=== PATIENT | male | born 1955 | race Caucasian/White ===

== ENCOUNTER 2017-08-10 09:55 | Observation (INO) | payer BC, OTHER ==
[~2017-08-10] VITALS: Ht 182.9 cm; Wt 131.1 kg
[2017-08-10] MEDS ORDERED: VERAPAMIL 5 MG/2 ML (CALAN) VIAL IV ONE ×2 (10:04→10:42)
[2017-08-10] MEDS ORDERED: APIXABAN 5 MG (ELIQUIS) TABLET PO ONE (10:15)
[2017-08-10] MEDS ORDERED: ASPIRIN 81 MG CHEW (CHILDREN'S ASA) PO ONE (10:15)
[2017-08-10 10:19] LABS: BASOPHILS % (AUTO) 0 % (0-10); EOSINOPHILS # (AUTO) 0.1 10^3/uL (0.0-0.3); EOSINOPHILS % (AUTO) 1 % (0-10); HEMATOCRIT 40 % (40-54); HEMOGLOBIN 13.2 G/DL (13.3-17.7); LYMPHOCYTES # (AUTO) 1.6 X 10^3 (1.0-4.0); LYMPHOCYTES % (AUTO) 16 % (12-44); MEAN CORPUSCULAR HEMOGLOBIN 30 PG (25-34); MEAN CORPUSCULAR HGB CONC 33 G/DL (32-36); MEAN CORPUSCULAR VOLUME 92 FL (80-99); MEAN PLATELET VOLUME 10.2 FL (7.4-10.4); MONOCYTES # (AUTO) 0.9 X 10^3 (0.0-1.0); MONOCYTES % (AUTO) 9 % (0-12); NEUTROPHILS # (AUTO) 7.3 X 10^3 (1.8-7.8); NEUTROPHILS % (AUTO) 73 % (42-75); PLATELET COUNT 209 10^3/uL (130-400); RED BLOOD COUNT 4.35 10^6/uL (4.35-5.85)
--- NOTE | 2017-08-10 10:21 | ED Cardiac General ---
History of Present Illness General Stated Complaint: IRR HEART RATE Source: patient Exam Limitations: no limitations History of Present Illness Date Seen by Provider: Aug 10, 2017 Time Seen by Provider: 09:54 Initial Comments Here with report of irregular fast heart rate. Actually presented to the urgent care clinic and was found to have atrial fibrillation with rapid ventricular response and sent here for further evaluation. He is actually presented there because of 7-10 days of bronchitis. 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 Reports that he's had the bronchitis that was getting worse and he was 1 to get that taken care of and went to the doctor. Denies chest pain but is short of breath and has some wheezing. Denies fever or chills. Denies nausea or vomiting. Does have cough with the bronchitis. Not typically on inhalers but does have hypertension and is on lisinopril/hydrochlorothiazide combination. This is his only med. Timing/Duration: 1 week Severity: moderate Location: other (symptoms related to breathing.) Activities at Onset: none Prior CP/Workup: no prior chest pain, no prior cardiac workup NTG SL ENTRY LEVEL SALES ASSOCIATE: No ASA po ENTRY LEVEL SALES ASSOCIATE: No Associated Systoms: No Chest Pain, Cough, No Fever/Chills, No Nausea/Vomiting, Shortness of Air, No Weakness Allergies and Home Medications Allergies Coded Allergies: No Known Drug Allergies (Unverified , 08/10/17) Patient Home Medication List Home Medication List Reviewed: Yes Review of Systems Constitutional: see HPI EENTM: No Symptoms Reported Respiratory: Cough, Denies Orthopnea, Wheezing Cardiovascular: Denies Chest Pain, Denies Edema, Irregular Heart Rate Gastrointestinal: Denies Abdominal Pain, Denies Nausea, Denies Vomiting Genitourinary: No Symptoms Reported Musculoskeletal: no symptoms reported Skin: no symptoms reported All Other Systems Reviewed Negative Unless Noted: Yes Past Xzfntnj-Xzilcx-Wrldyu Hx Past Med/Social Hx: Reviewed Nursing Past Med/Soc Hx Patient Social History Alcohol Use: Denies Use Recreational Drug Use: No Smoking Status: Current Everyday Smoker Past Medical History Surgeries: Yes Orthopedic Respiratory: No Cardiac: Yes Hypertension Neurological: No Gastrointestinal: No Musculoskeletal: No Endocrine: No Cancer: No Family Medical History No Pertinent Family Hx Physical Exam Vital Signs Capillary Refill : General Appearance: No Apparent Distress, WD/WN HEENT: PERRL/EOMI, Pharynx Normal Neck: Non Tender, Supple Respiratory: No Respiratory Distress, Wheezing Cardiovascular: No Murmur, Irregularly Irregular, Tachycardia Gastrointestinal: Non Tender, Soft Extremity: Normal Range of Motion, Non Tender Neurologic/Psychiatric: Alert, Oriented x3 Skin: Normal Color, Warm/Dry Progress/Results/Core Measures Lab Results Laboratory Tests Test 08/10/17 10:10 Range/Units White Blood Count 10.0 4.3-11.0 10^3/uL Red Blood Count 4.35 4.35-5.85 10^6/uL Hemoglobin 13.2 L 13.3-17.7 G/DL Hematocrit 40 40-54 % Mean Corpuscular Volume 92 80-99 FL Mean Corpuscular Hemoglobin 30 25-34 PG Mean Corpuscular Hemoglobin Concent 33 32-36 G/DL Red Cell Distribution Width 14.0 10.0-14.5 % Platelet Count 209 130-400 10^3/uL Mean Platelet Volume 10.2 7.4-10.4 FL Neutrophils (%) (Auto) 73 42-75 % Lymphocytes (%) (Auto) 16 12-44 % Monocytes (%) (Auto) 9 0-12 % Eosinophils (%) (Auto) 1 0-10 % Basophils (%) (Auto) 0 0-10 % Neutrophils # (Auto) 7.3 1.8-7.8 X 10^3 Lymphocytes # (Auto) 1.6 1.0-4.0 X 10^3 Monocytes # (Auto) 0.9 0.0-1.0 X 10^3 Eosinophils # (Auto) 0.1 0.0-0.3 10^3/uL Basophils # (Auto) 0.0 0.0-0.1 10^3/uL Prothrombin Time 13.5 12.2-14.7 SEC INR Comment 1.0 0.8-1.4 Activated Partial Thromboplast Time 38 H 24-35 SEC Sodium Level 137 135-145 MMOL/L Potassium Level 4.5 3.6-5.0 MMOL/L Chloride Level 105 98-107 MMOL/L Carbon Dioxide Level 21 21-32 MMOL/L Anion Gap 11 5-14 MMOL/L Blood Urea Nitrogen 28 H 7-18 MG/DL Creatinine 1.53 H 0.60-1.30 MG/DL Estimat Glomerular Filtration Rate 46 BUN/Creatinine Ratio 18 Glucose Level 111 H 70-105 MG/DL Calcium Level 9.4 8.5-10.1 MG/DL Magnesium Level 1.9 1.8-2.4 MG/DL Total Bilirubin 1.0 0.1-1.0 MG/DL Aspartate Amino Transf (AST/SGOT) 22 5-34 U/L Alanine Aminotransferase (ALT/SGPT) 28 0-55 U/L Alkaline Phosphatase 82 40-136 U/L Myoglobin 170.0 H 10.0-92.0 NG/ML Troponin I < 0.30 <0.30 NG/ML Total Protein 7.6 6.4-8.2 GM/DL Albumin 4.3 3.2-4.5 GM/DL My Orders Orders - ARTEMIO HAYES MD Cbc With Automated Diff (08/10/17 10:07) Magnesium (08/10/17 10:07) Chest 1 View, Ap/Pa Only (08/10/17 10:07) Ekg Tracing (08/10/17 10:07) Cardiac Profile 1 (08/10/17 10:07) Comprehensive Metabolic Panel (08/10/17 10:07) Myoglobin Serum (08/10/17 10:07) Protime With Inr (08/10/17 10:07) Partial Thromboplastin Time (08/10/17 10:07) O2 (08/10/17 10:07) Monitor-Rhythm Ecg Trace Only (08/10/17 10:07) Lipid Panel (08/11/17 06:00) Aspirin Chewable Tablet (Baby Aspirin Ch (08/10/17 10:15) Saline Lock/Iv-Start (08/10/17 10:07) Verapamil Injection (Calan Injection) (08/10/17 10:04) Apixaban Tablet (Eliquis Tablet) (08/10/17 10:15) Diltiazem Tablet (Cardizem Tablet) (08/10/17 10:30) Verapamil Injection (Calan Injection) (08/10/17 10:45) Ceftriaxone Injection (Rocephin Injectio (08/10/17 11:00) Verapamil Injection (Calan Injection) (08/10/17 10:42) Prednisone Tablet (Deltasone Tablet) (08/10/17 11:00) Medications Given in ED Current Medications Medications Dose Ordered Sig/Sid Route Start Time Stop Time Status Last Admin Dose Admin Apixaban 5 mg ONCE ONCE PO 08/10/17 10:15 08/10/17 10:16 DC 08/10/17 10:15 5 MG Aspirin 324 mg ONCE ONCE PO 08/10/17 10:15 08/10/17 10:16 DC 08/10/17 10:15 324 MG Verapamil HCl 5 mg STK-MED ONCE IV 08/10/17 10:04 08/10/17 10:08 DC 08/10/17 10:17 5 MG Verapamil HCl 5 mg STK-MED ONCE IV 08/10/17 10:42 08/10/17 10:47 DC 08/10/17 10:50 5 MG Progress Note : Progress Note Seen and evaluated. IV, labs, chest x-ray and EKG ordered. ASA 324 mg by mouth ordered. I discussed the case with Dr. Fournier at 1007. Recommending Eliquis 5 mg po, Agrees with verapamil 5 mg IV. Will see patient in the ED. 1015: Dr Fournier evaluating. Cardizem 30 mg PO. monitor patient. 1042: Repeat verapamil 5 mg IV. I did discuss the case with Dr. BERUMEN and he accepts patient for admission, observation status. Due to the prolonged bronchitis we will initiate Rocephin 1 g IV and prednisone 40 mg by mouth. Patient has no indications of pneumonia nor does have indication of sepsis so blood cultures and lactic acid not drawn and the admitting physician agrees. Patient been admitted for atrial fibrillation with rapid ventricular response in the setting of bronchitis. Further medication orders aside from prednisone per admitting physician team. Patient and family agree with plan. Initial ECG Impression Date: Aug 10, 2017 Initial ECG Impression Time: 09:55 Initial ECG Rate: 165 Initial ECG Rhythm: A Fib/Flutter Comment Atrial fibrillation with rapid ventricular response. Normal axis. No evidence of ST elevation SC. No previous available for comparison. Interpreted by me. Diagonstic Imaging: Xray Plain Films/CT/US/NM/MRI: chest Comments NAME: YOUSUF DUNCAN MED REC#: [id number] PT STATUS: REG ER : 1955 PHYSICIAN: ARTEMIO HAYES MD ADMIT DATE: 08/10/17/ER Draft Date of Exam:08/10/17 CHEST 1 VIEW, AP/PA ONLY INDICATION: Atrial fibrillation. Time of exam: 10:33 AM No prior studies are available for comparison. The heart size is normal. The pulmonary vascularity is unremarkable. The lungs are clear. No infiltrate, effusion or pneumothorax is detected. Impression: No acute cardiopulmonary process is detected. Dictated on workstation # [id number] Dict: 08/10/17 1037 Trans: 08/10/17 1039 [id number] Interpreted by: WANDA RIGGS MD Electronically signed by: Departure Communication (Admissions) Time/Spoke to Admitting Phy: 10:42 Time/Spoke to Consulting Phy: 10:07 Impression Primary Impression: Atrial fibrillation with rapid ventricular response Additional Impressions: Bronchitis Chronic renal insufficiency Qualified Codes: N18.9 - Chronic kidney disease, unspecified Disposition: ADMITTED INPATIENT Condition: Stable Admissions Decision to Admit Reason: Admit from ER (General) Decision to Admit/Date: Aug 10, 2017 Time/Decision to Admit Time: 10:07 Departure-Patient Inst. Referrals: NO,LOCAL PHYSICIAN (PCP/Family) Primary Care Physician ARTEMIO HAYES MD Aug 10, 2017 10:21
[2017-08-10 10:26] LABS: PROTHROMBIN TIME PATIENT 13.5 SEC (12.2-14.7)
[2017-08-10] MEDS ORDERED: DILTIAZEM 30 MG (CARDIZEM) TAB PO SCH (10:30)
[2017-08-10 10:36] LABS: ALANINE AMINOTRANSFERASE 28 U/L (0-55); ALBUMIN 4.3 GM/DL (3.2-4.5); ALKALINE PHOSPHATASE 82 U/L (40-136); BUN/CREATININE RATIO 18; CALCIUM 9.4 MG/DL (8.5-10.1); CARBON DIOXIDE 21 MMOL/L (21-32); CHLORIDE 105 MMOL/L (98-107); CREATININE SERUM 1.53 MG/DL (0.60-1.30); GFR ESTIMATED 46; GLUCOSE 111 MG/DL (70-105); MAGNESIUM 1.9 MG/DL (1.8-2.4); POTASSIUM 4.5 MMOL/L (3.6-5.0); SODIUM 137 MMOL/L (135-145); TOTAL PROTEIN 7.6 GM/DL (6.4-8.2)
--- NOTE | 2017-08-10 10:39 | Diagnostic Imaging Report ---
INDICATION: Atrial fibrillation. Time of exam: 10:33 AM No prior studies are available for comparison. The heart size is normal. The pulmonary vascularity is unremarkable. The lungs are clear. No infiltrate, effusion or pneumothorax is detected. Impression: No acute cardiopulmonary process is detected. Dictated by: Dictated on workstation # [id number]
[2017-08-10] MEDS ORDERED: VERAPAMIL 10 MG/4 ML (CALAN) VIAL IV ONE (10:45)
--- NOTE | 2017-08-10 10:50 | Consultation-Cardiology ---
HPI-Cardiology Cardiology Consultation Date of Consultation 08/10/17 Date of Admission Time Seen by Provider: 10:40 Indication: Afib with RVR HPI Patient is a very pleasant 61 y/o male with history of HTN. Presented to the ER with c/o URI like symptoms for the past week. Patient noted to be in Afib with RVR with HR in the 150's. Denies any CP, dizziness, lightheadedness or syncope. No other complaints at this time. Admits to snoring at night, with observed apneas, has multiple risk factors for underlying sleep apnea. 61 years old gentleman with history of hypertension, has been having shortness of breath and cough with wheezing for the past one to 2 weeks, went to [facility] emergency room and noted to be in atrial flutter ablation with rapid ventricular response and came here. Has been complaint of fatigue and loss of energy, denied any chest pain, palpitation, syncope or near syncopal episodes. Was noted to have heart rate around 150 in the emergency room. Home Medications & Allergies Allergies: Coded Allergies: No Known Drug Allergies (Unverified , 08/10/17) Home Medication List Reviewed: Yes Medication list reviewed ENE-Rkruaq-Omzkgc Hx Patient Social History Marital Status: Employed/Student: employed Alcohol Use: Denies Use Recreational Drug Use: No Smoking Status: Current Everyday Smoker Past Medical History HTN, obesity, tobaccoism Family Medical History Significant Family History: No Pertinent Family Hx Constitutional: No chills, No diaphoresis, No fever, No malaise, No weakness EENTM: No blurred vision, No double vision, No vision loss, No epistaxis Respiratory: cough, dyspnea on exertion, short of breath, wheezing Cardiovascular: No chest pain, No edema, No palpitations, No syncope, No vascular heart diseas Gastrointestinal: No abdominal pain, No constipation Genitourinary: No frequency, No hematuria Musculoskeletal: No back pain Skin: No lesions, No rash Psychiatric/Neurological: Denies Anxiety Reviewed Test Results Reviewed Test Results Lab Laboratory Tests 08/10/17 10:10: White Blood Count 10.0, Red Blood Count 4.35, Hemoglobin 13.2L, Hematocrit 40, Mean Corpuscular Volume 92, Mean Corpuscular Hemoglobin 30, Mean Corpuscular Hemoglobin Concent 33, Red Cell Distribution Width 14.0, Platelet Count 209, Mean Platelet Volume 10.2, Neutrophils (%) (Auto) 73, Lymphocytes (%) (Auto) 16 , Monocytes (%) (Auto) 9, Eosinophils (%) (Auto) 1, Basophils (%) (Auto) 0, Neutrophils # (Auto) 7.3, Lymphocytes # (Auto) 1.6, Monocytes # (Auto) 0.9, Eosinophils # (Auto) 0.1, Basophils # (Auto) 0.0, Prothrombin Time 13.5, INR Comment 1.0, Activated Partial Thromboplast Time 38H, Sodium Level 137, Potassium Level 4.5, Chloride Level 105, Carbon Dioxide Level 21, Anion Gap 11, Blood Urea Nitrogen 28H, Creatinine 1.53H, Estimat Glomerular Filtration Rate 46 , BUN/Creatinine Ratio 18, Glucose Level 111H, Calcium Level 9.4, Magnesium Level 1.9, Total Bilirubin 1.0, Aspartate Amino Transf (AST/SGOT) 22, Alanine Aminotransferase (ALT/SGPT) 28, Alkaline Phosphatase 82, Myoglobin 170.0H, Troponin I < 0.30, Total Protein 7.6, Albumin 4.3 ECG Impression ECG Initial ECG Rhythm: A Fib/Flutter Initial ECG Impression: Atrial Fibrillation w/RVR Physical Exam Vital Signs Vital Signs - First Documented 08/10/17 09:55 Temp 98.4 Pulse 165 Resp 20 B/P (MAP) 138/90 (106) Pulse Ox 95 O2 Delivery Room Air Capillary Refill : General Appearance: No Apparent Distress, WD/WN HEENT: Normal ENT Inspection, Pharynx Normal Neck: Full Range of Motion, Non Tender, Supple Respiratory: Chest Non Tender, No Accessory Muscle Use, No Respiratory Distress , Rhonci, Wheezing Cardiovascular: No Edema, No Gallop, No JVD, No Murmur, Normal Peripheral Pulses, Irregularly Irregular, Tachycardia Gastrointestinal: No Pulsatile Mass, Non Tender, Soft Rectal: Deferred Back: No CVA Tenderness Extremity: Non Tender, No Calf Tenderness Neurologic/Psychiatric: Alert, Oriented x3, sound recordist II-XII Norm as Tested Skin: Normal Color, Warm/Dry Lymphatic: No Adenopathy A/P-Cardiology Admission Diagnosis Afib with RVR HTN Obesity Tobaccoism Assessment/Plan Afib with RVR- unknown duration. Currently in afib with HR in the 150's. IV Verapamil given. Will give PO Cardizem, followed by another 5mg IV Verapamil if needed. Continue to monitor telemetry. Cardiac enzymes pending. I will evaluate TSH, 2D Echo. URI/Bronchitis- management per primary care services HTN- continue to monitor blood pressure/HR Obesity Tobaccoism- educated on the importance of smoking cessation Multiple risk factors for underlying sleep apnea- snoring, observed apneas, cardiac arrhythmia, obesity. Recommend sleep study as outpatient. Thank you for allowing us to participate in the management of Mr. Pickens. This is Freda Beth PA-C, as a scribe for Dr. Fournier. This is Dr. Fournier, I have seen and evaluated the patient with Freda, discussed the management plan and agree with the current scribe, I made few modification to the note and used Italic Font. This is a 61 years old gentleman admitted with atrial fibrillation with rapid ventricular response, given multiple doses of verapamil IV, start him on oral Cardizem, I will evaluate 2-D echocardiogram, has high risk of underlying sleep apnea, consider sleep study, I will evaluate TSH. On examination lungs evaluation showed bilateral rhonchi and wheezing on the right side. Heart is irregular and tachycardic. No pedal edema. No abdominal pain, good bowel sounds Clinical Quality Measures AMI/AHF: ASA po Prior to arrival: No FREDA BOUCHER Aug 10, 2017 10:50 GRACIE FOURNIER MD Aug 10, 2017 11:38
[2017-08-10] MEDS ORDERED: cefTRIAXone INJECTION 1,000 MG in NS (IVPB) 100 ML IV ONE (11:00)
[2017-08-10] MEDS ORDERED: predniSONE 20 MG TAB PO ONE (11:00)
[2017-08-10 12:00] VITALS: BP 123/107
[2017-08-10] MEDS ORDERED: CATHETER FLUSH 10 ML SYR IV PRN (12:15)
[2017-08-10 12:28] VITALS: BP 112/83
[2017-08-10] MEDS: DILTIAZEM 60 MG (CARDIZEM) TAB PO SCH ×3 (12:39→23:37)
[2017-08-10] MEDS: NS IV 1000 ML 1,000 ML IV SCH (12:40)
[2017-08-10] MEDS ORDERED: RT-ALBUTEROL SULF 2.5 MG/3 ML PRE-MIX VIAL INH PRN (14:30)
[2017-08-10] MEDS ORDERED: LISI1TAB8 PO (14:39)
[2017-08-10] MEDS ORDERED: ASPI-983 PO (14:39)
[2017-08-10 16:40] VITALS: BP 140/90
[2017-08-10 20:00] VITALS: BP 157/95
[2017-08-10] MEDS: APIXABAN 5 MG (ELIQUIS) TABLET PO SCH (21:17)
[2017-08-11] VITALS: BP 178/107
[2017-08-11] MEDS: NS IV 1000 ML 1,000 ML IV SCH ×2 (03:13→15:52)
[2017-08-11 04:00] VITALS: BP 142/102
[2017-08-11 04:02] LABS: HEMOGLOBIN 12.3 G/DL (13.3-17.7); MEAN PLATELET VOLUME 10.3 FL (7.4-10.4); RED BLOOD COUNT 4.01 10^6/uL (4.35-5.85); WHITE BLOOD COUNT 11.5 10^3/uL (4.3-11.0)
[2017-08-11 04:19] LABS: ALANINE AMINOTRANSFERASE 23 U/L (0-55); ALKALINE PHOSPHATASE 68 U/L (40-136); BILIRUBIN,TOTAL 0.6 MG/DL (0.1-1.0); BUN/CREATININE RATIO 20; CALCIUM 8.9 MG/DL (8.5-10.1); CARBON DIOXIDE 21 MMOL/L (21-32); CHLORIDE 108 MMOL/L (98-107); CHOLESTEROL 205 MG/DL (< 200); CREATININE SERUM 1.47 MG/DL (0.60-1.30); GFR ESTIMATED 48; GLUCOSE 106 MG/DL (70-105); HDL CHOLESTEROL 37 MG/DL (40-60); POTASSIUM 4.8 MMOL/L (3.6-5.0); SODIUM 138 MMOL/L (135-145); TOTAL PROTEIN 7.1 GM/DL (6.4-8.2); TRIGLYCERIDES 85 MG/DL (<150); VLDL CHOLESTEROL 17 MG/DL (5-40)
[2017-08-11] MEDS: DILTIAZEM 60 MG (CARDIZEM) TAB PO SCH (06:33)
[2017-08-11] MEDS ORDERED: predniSONE 20 MG TAB PO SCH (07:00)
--- NOTE | 2017-08-11 07:10 | Cardiology Progress Note ---
Subjective Date Seen by Provider: Aug 11, 2017 Time Seen by Provider: 07:07 Subjective/Events-last exam Patient is sitting in bed, feeling better, still having some wheezing Review of Systems General: No Chills, No Night Sweats, No Fatigue, No Malaise, No Appetite, No Other HEENT: No Head Aches, No Visual Changes, No Eye Pain, No Ear Pain, No Dysphasia , No Sinus Congestion, No Post Nasal Drip, No Sore Throat, No Other Pulmonary: Dyspnea, No Cough, No Pleuritic Chest Pain, No Other Cardiovascular: Palpitations, No: Chest Pain, Orthopnea, Paroxysmal Noc. Dyspnea, Edema, Lt Headedness, Other Objective-Cardiology Exam Last Set of Vital Signs Vital Signs Capillary Refill : Less Than 3 Seconds Vital Signs Date Time Temp Pulse Resp B/P (MAP) Pulse Ox O2 Delivery O2 Flow Rate FiO2 08/11/17 04:00 97.3 97 20 142/102 (115) 94 Room Air I&O Intake and Output 08/11/17 00:00 Intake Total 1080 ml Output Total 650 ml Balance 430 ml Intake Oral 1080 ml Output Urine Total 650 ml Daily Weight Change No General: Alert, Oriented X3, Cooperative HEENT: Atraumatic, PERRLA Neck: Supple, No JVD, No Thyromegaly Lungs: Normal Air Movement, Other (wheezing) Heart: Normal S1, Normal S2, No Murmurs, Other (a fib) Abdomen: Normal Bowel Sounds, Soft, No Tenderness, No Hepatosplenomegaly, No Masses Extremities: No Clubbing, No Cyanosis, No Edema, Normal Pulses, No Tenderness/ Swelling Skin: No Rashes, No Breakdown, No Significant Lesion Neuro: Normal Gait, Normal Speech, Strength at 5/5 X4 Ext, Normal Tone, Sensation Intact Psych/Mental Status: Mental Status NL, Mood NL Results Lab Laboratory Tests 08/10/17 10:10 08/11/17 03:05 A/P-Cardiology Admission Diagnosis Afib with RVR HTN Obesity Tobaccoism Assessment/Plan Afib with RVR- unknown duration, heart rate is better controlled, I will change him to Cardizem CD, continue to monitor heart rate and blood pressure Echocardiogram showed normal left ventricular size and function, moderate to severe mitral regurgitation, mild aortic valve stenosis, mild aortic regurgitation. Enlarged left atrium. URI/Bronchitis, still having wheezing, started on prednisone in the emergency room, I will add math protocol- management per primary care services HTN- continue to monitor blood pressure/HR Obesity Tobaccoism- educated on the importance of smoking cessation Multiple risk factors for underlying sleep apnea- snoring, observed apneas, cardiac arrhythmia, obesity. Recommend sleep study as outpatient. Clinical Quality Measures AMI/AHF: ASA po Prior to arrival: No DVT/VTE Risk/Contraindication: Risk Factor Score Per Nursin RFS Level Per Nursing on Admit: 2=Moderate GRACIE ALFARO MD Aug 11, 2017 07:10
[2017-08-11 07:51] VITALS: BP 127/84
[2017-08-11] MEDS: APIXABAN 5 MG (ELIQUIS) TABLET PO SCH (08:59)
[2017-08-11] MEDS ORDERED: DILTIAZEM 240 MG (CARDIZEM CD) CAP PO SCH (09:00)
[2017-08-11 11:26] VITALS: BP 134/80
[2017-08-11] MEDS ORDERED: DILT240C63 PO (16:10)
[2017-08-11] MEDS ORDERED: APIX5TAB PO (16:10)
--- NOTE | 2017-08-11 16:13 | Discharge Instructions ---
Discharge Instructions Patient Instructions Patient Instructions: Stop smoking Medications as on the discharge list. There were 2 new medications that were transmitted to your pharmacy electronically. Keep appointment in follow-up with Dr. Fournier Return to The Hospital For: Decline in performance Activity & Diet Discharge Diet: No Restrictions Activity as Tolerated: Yes ELIDIA BERUMEN MD Aug 11, 2017 16:13
--- NOTE | 2017-08-11 16:20 | Short Stay Summary-Hospitalist ---
History of Present Illness HPI/Chief Complaint The patient's a 61-year-old who presented to the emergency room yesterday with complaints of cough and sputum production. This is a complaint that had begun one to 2 weeks prior to presentation. On his workup he was found to be in atrial fibrillation with a rate of 150. He denied chest pain. There was no previous knowledge of an irregular heartbeat. He was therefore admitted for attempt at rate control. He was seen by cardiology. Source: patient Exam Limitations: no limitations Date Seen 08/11/17 Time Seen by Provider: 16:13 Attending Physician Aron Berumen MD PCP No,Local Physician Referring Physician Date of Admission Aug 10, 2017 at 11:55 Home Medications & Allergies Home Medications Reviewed patient Home Medication Reconciliation performed by pharmacy medication reconciliations photographic equipment technician and/or nursing. Patients Allergies have been reviewed. Allergies Allergies Coded Allergies No Known Drug Allergies (Unverified08/10/17) Past Aaxlgen-Qlsbvf-Gfefqk Hx Past Med/Social Hx: Reviewed Nursing Past Med/Soc Hx Patient Social History Marrital Status: Employed/Student: employed Alcohol Use: Denies Use Recreational Drug Use: No Smoking Status: Current Everyday Smoker Cigaretts per day: 10 Type Used: Cigarettes 2nd Hand Smoke Exposure: Yes Physical Abuse Screen: No Sexual Abuse: No Recent Foreign Travel: No Contact w/other who traveled: No Recent Hopitalizations: No Recent Infectious Disease Expo: No Seasonal Allergies Seasonal Allergies: No Past Medical History Surgeries: Orthopedic Cardiac: Hypertension Gastrointestinal: Gastroesophageal Reflux, Ulcer History of Blood Disorders: No Adverse Reaction to Blood Ayala: No Family History Reviewed Nursing Family Hx No Pertinent Family Hx Review of Systems Constitutional: see HPI EENTM: no symptoms reported Respiratory: cough, dyspnea on exertion, phlegm Cardiovascular: no symptoms reported Genitourinary: no symptoms reported Musculoskeletal: no symptoms reported Skin: no symptoms reported Psychiatric/Neurological: No Symptoms Reported Physical Exam Physical Exam Vital Signs Vital Signs - First Documented 08/10/17 09:55 Temp 98.4 Pulse 165 Resp 20 B/P (MAP) 138/90 (106) Pulse Ox 95 O2 Delivery Room Air Capillary Refill : Less Than 3 Seconds General Appearance: No Apparent Distress, WD/WN Eyes: Bilateral Eye Normal Inspection HEENT: Normal ENT Inspection Neck: Normal Inspection Cardiovascular: Irregularly Irregular (Rate approximately 100) Gastrointestinal: Normal Bowel Sounds, No Organomegaly, No Pulsatile Mass, Non Tender, Soft Back: Normal Inspection, No CVA Tenderness Neurologic/Psychiatric: Alert, Oriented x3, No Motor/Sensory Deficits, Normal Mood/Affect Skin: Normal Color Lymphatic: No Adenopathy Results Results/Procedures Labs Laboratory Tests 08/10/17 10:10 08/11/17 03:05 Patient resulted labs reviewed. Short Stay Diagnosis Discharge Diagnosis-Short Stay Admission Diagnosis 1.bronchitis. 2.tobaccoism. 3.atrial fibrillation with rapid ventricular response. 4.hypertension Final Discharge Diagnosis 1.bronchitis 2.tobaccoism. 3.atrial fibrillation now with controlled ventricular response. 4.hypertension Conclusion Plan Discharge with follow-up with Dr. Fournier. He has been placed on Cardizem orally for attempts at rate control. He is been placed on Eliquis for embolic prevention. He will be evaluated by Dr. Fournier on return to the office for attempt at cardioversion. He was advised to stop and CEASE use of tobacco products Clinical Quality Measures AMI/AHF: ASA po Prior to arrival: No DVT/VTE Risk/Contraindication: Risk Factor Score Per Nursin RFS Level Per Nursing on Admit: 2=Moderate ARON BERUMEN MD Aug 11, 2017 16:20
[2017-08-11 16:32] VITALS: BP 138/85
== END 2017-08-11 16:11 | disposition home or self-care (01) ==
LOC: ER 10:00 → ICU 10:48 → UNDOADMOB 10:48 → ICU 11:55
PROVIDERS: ADMIT Internal Medicine; ATTEND Internal Medicine
DX: I48.91 Unspecified atrial fibrillation (principal); J40 Bronchitis, not specified as acute or chronic; F17.210 Nicotine dependence, cigarettes, uncomplicated; I10 Essential (primary) hypertension; Z79.01 Long term (current) use of anticoagulants; E66.9 Obesity, unspecified; Z68.39 Body mass index [BMI] 39.0-39.9, adult
CPT/HCPCS: 36415; 71045; 80053; 80061; 83735; 83874; 84443; 84484; 85025; 85027; 85610; 85730; 93005; 93041; 93306; 94640; 94760; 96365; 96375; 96376

== ENCOUNTER 2017-10-05 07:12 | Day surgery (SDC) | payer BC ==
[2017-10-05] VITALS (12 sets, daily range): BP systolic 117–159; BP diastolic 76–129
[~2017-10-05] VITALS: Ht 182.9 cm; Wt 131.4 kg
[~2017-10-05 07:12] MED LIST: APIX5TAB PO; ASPI-983 PO; DILT240C63 PO; LISI1TAB8 PO
[2017-10-05] MEDS ORDERED: NS IV 1000 ML 1,000 ML IV SCH (07:30)
[2017-10-05] MEDS ORDERED: NS IV 1000 ML 1,000 ML ONE (07:33)
[2017-10-05] MEDS ORDERED: LIDOCAINE 2% VISCOUS 15 ML UDC ONE (07:33)
[2017-10-05 07:59] LABS: BILIRUBIN,URINE NEGATIVE (NEGATIVE); CLARITY,URINE CLEAR; COLOR,URINE YELLOW; GLUCOSE, URINE (UA) NEGATIVE (NEGATIVE); KETONES,URINE NEGATIVE (NEGATIVE); LEUKOCYTE ESTERASE ,URINE 2+ (NEGATIVE); NITRITE,URINE NEGATIVE (NEGATIVE); PH,URINE 5 (5-9); PROTEIN,URINE NEGATIVE (NEGATIVE); UROBILINOGEN,URINE NORMAL (NORMAL)
[2017-10-05 08:00] LABS: HEMOGLOBIN 14.8 G/DL (13.3-17.7); MEAN PLATELET VOLUME 10.2 FL (7.4-10.4); RED BLOOD COUNT 4.82 10^6/uL (4.35-5.85); RED CELL DISTRIBUTION WIDTH 13.9 % (10.0-14.5); WHITE BLOOD COUNT 7.9 10^3/uL (4.3-11.0)
[2017-10-05] MEDS ORDERED: LOSA1TAB23 PO (08:00)
[2017-10-05] MEDS ORDERED: DABI150C5 PO (08:00)
[2017-10-05] MEDS ORDERED: DILT240C53 PO (08:00)
[2017-10-05 08:09] LABS: BACTERIA,URINE TRACE /HPF
[2017-10-05 08:10] LABS: INR 1.1 (0.8-1.4); PROTHROMBIN TIME PATIENT 14.3 SEC (12.2-14.7)
--- NOTE | 2017-10-05 08:11 | Diagnostic Imaging Report ---
INDICATION: Hypertension, A-fib. Comparison is made with prior examination from 08/10/17. FINDINGS: There is cardiomegaly. There is mild venous congestion. There is no pleural effusion or pneumothorax. The mediastinum is unremarkable. IMPRESSION: Cardiomegaly and some mild central pulmonary venous congestion. Dictated by: Dictated on workstation # [id number]
[2017-10-05] MEDS ORDERED: proPOfol 200 MG/20 ML (DIPRIVAN) VIAL IV ONE (08:18)
[2017-10-05] MEDS ORDERED: MIDAZOLAM 5 MG/5 ML (VERSED) VIAL ONE (08:18)
[2017-10-05 08:20] LABS: BILIRUBIN,TOTAL 0.5 MG/DL (0.1-1.0); CREATININE SERUM 1.61 MG/DL (0.60-1.30); POTASSIUM 4.4 MMOL/L (3.6-5.0); TOTAL PROTEIN 7.3 GM/DL (6.4-8.2)
--- NOTE | 2017-10-05 08:31 | Cardiac Procedure Note-CS/ASA ---
Pre-Procedure Note Pre-Op Procedure Note H&P Reviewed The H&P was reviewed, patient examined and no changes noted. Date H&P Reviewed: Oct 05, 2017 Time H&P Reviewed: 08:31 Conscious Sedation Pre-Proced Time Reviewed: :31 ASA Class: 3 Airway Mallampati Classification: (jena appropriate class) I. II. III, IV Lungs Heart ASA score ASA 1: a normal healthy patient ASA 2: a patient with a mild systemic disease (mid diabetes, controlled hypertension, obesity X ASA 3: a patient with a severe systemic disease that limits activity (angina , COPD, prior Myocardial infarction) ASA 4: a patient with an incapacitating disease that is a constant threat to life (CHF, renal failure) ASA 5: a moribund patient not expected to survive 24 hrs. (ruptured aneurysm) ASA 6: a declared brain patient whose organs are being harvested. For emergent operations, add the letter E after the classification Grade 3 Sedation Plan: Analgesia, Amnesia, Plan communicated to team members, Discussed options with patient/fam, Discussed risks with patient/fam Note The patient is an appropriate candidate to undergo the planned procedure, sedation, and anesthesia. The patient immediately re-assessed prior to indication. GRACIE ALFARO MD Oct 05, 2017 08:31
--- NOTE | 2017-10-05 08:53 | Cardioversion ---
Cardioversion PROCEDURE PHYSICIAN: Gracie Fournier DATE OF PROCEDURE: 10/05/17 DIRECT EXTERNAL ELECTRICAL CARDIOVERSION: Indications: Atrial Fibrillation Preoperative diagnoses: Atrial Fibrillation Postoperative diagnosis: Sinus rhythm, Successful Electrical Cardioversion Anesthesia: By Anesthesia services Complications: None Procedure Details: The patient was brought the ship laborer after informed consent was taken, all the risks and complications were explained including the risk of stroke. Electrical cardioversion was carried out with anesthesia support with propofol. 200 joules of synchronized shock was delivered through external patches which promptly restored sinus rhythm. The patient tolerated the procedure well. Conclusions: Successful electrical cardioversion Final Diagnosis: Paroxysmal atrial fibrillation Hypertension Hyperlipidemia GRACIE FOURNIER MD Oct 05, 2017 8:53 am
--- NOTE | 2017-10-05 08:54 | Anesthesia-General Post-Op ---
MAC Patient Condition Mental Status/LOC: Same as Preop Cardiovascular: Satisfactory Nausea/Vomiting: Absent Respiratory: Satisfactory Pain: Controlled Complications: Absent Post Op Complications Complications None Follow Up Care/Instructions Patient Instructions None needed. Anesthesiology Discharge Order Discharge Order Patient is doing well, no complaints, stable vital signs, no apparent adverse anesthesia problems. No complications reported per nursing. HIEN SINGH CRNA Oct 05, 2017 08:54
--- NOTE | 2017-10-05 08:57 | Anesthesia-Procedure Note ---
Procedures/Interventions Procedure Start/Stop/Diagnosis Date of Procedure: Oct 05, 2017 Start Time: 08:38 Referring Physician: Irlanda Preprocedural Diagnosis: AFIB/HTN Stop Time: 08:48 RICHA/Cardioversion Anesthesia Type: mac ASA Class: 3 Medications Propofol titrated to effect, 130mg IV total. Versed 2MG IV. Monitors and Equipment: BP Cuff - Left, Continuous EKG, End Tidal CO2, IV, Pulse Oximeter Additional Procedures Procedures Called to photonic laboratory technician to assist with sedation for RICHA/Cardioversion. Brief report received from photonic laboratory technician RN, allergies verified. Explained to patient, he wishes to proceed. VS stable throughout. See cardiology and nurses notes for additional info. HIEN SINGH CRNA Oct 05, 2017 08:57
[2017-10-05] MEDS ORDERED: LIDOCAINE 2% VISCOUS 15 ML UDC PO ONE (09:00)
[2017-10-05] MEDS ORDERED: FLECAINIDE 100 MG (TAMBOCOR) TAB PO SCH (09:15)
[2017-10-05] MEDS ORDERED: FLEC100T PO (09:22)
== END 2017-10-05 10:01 | disposition home or self-care (01) ==
LOC: CATH 07:12
PROVIDERS: ATTEND Internal Medicine Cardiovascular Disease
DX: I48.0 Paroxysmal atrial fibrillation (principal); I10 Essential (primary) hypertension; E78.5 Hyperlipidemia, unspecified; G47.10 Hypersomnia, unspecified; I08.0 Rheumatic disorders of both mitral and aortic valves; Z87.891 Personal history of nicotine dependence; E66.9 Obesity, unspecified; Z68.39 Body mass index [BMI] 39.0-39.9, adult
CPT/HCPCS: 36415; 71045; 80053; 80061; 81000; 85027; 85610; 85730; 87081; 87088; 92960; 93005; 93320; 93325

== ENCOUNTER 2018-12-26 10:26 | Emergency (ER) | payer MEDICARE, OTHER ==
[~2018-12-26] VITALS: Ht 182.9 cm; Wt 127.0 kg
[~2018-12-26 10:26] MED LIST changes: +DABI150C5 PO; +DILT240C53 PO; -DILT240C63 PO; +DILT240C97 PO; +FLEC100T PO; +LOSA1TAB23 PO
[2018-12-26 11:03] LABS: BASOPHILS % (AUTO) 0 % (0-10); EOSINOPHILS # (AUTO) 0.1 10^3/uL (0.0-0.3); EOSINOPHILS % (AUTO) 1 % (0-10); HEMATOCRIT 45 % (40-54); HEMOGLOBIN 15.1 G/DL (13.3-17.7); LYMPHOCYTES # (AUTO) 1.2 X 10^3 (1.0-4.0); LYMPHOCYTES % (AUTO) 16 % (12-44); MEAN CORPUSCULAR HEMOGLOBIN 30 PG (25-34); MEAN CORPUSCULAR HGB CONC 34 G/DL (32-36); MEAN CORPUSCULAR VOLUME 89 FL (80-99); MONOCYTES # (AUTO) 0.8 X 10^3 (0.0-1.0); MONOCYTES % (AUTO) 12 % (0-12); NEUTROPHILS # (AUTO) 5.2 X 10^3 (1.8-7.8); NEUTROPHILS % (AUTO) 71 % (42-75); PLATELET COUNT 159 10^3/uL (130-400); RED CELL DISTRIBUTION WIDTH 14.1 % (10.0-14.5); WHITE BLOOD COUNT 7.3 10^3/uL (4.3-11.0)
--- NOTE | 2018-12-26 11:10 | Diagnostic Imaging Report ---
PATIENT HISTORY: Hypotension. TECHNIQUE: Single frontal view of the chest. COMPARISON: 10/05/2017 FINDINGS: Lung volumes are large. Mild airspace opacity seen at the left lung base. No pleural effusion or pneumothorax is seen. The cardiac silhouette is stable in size. IMPRESSION: 1. Large lung volumes with left basilar airspace opacities, may represent atelectasis or infiltrate. Dictated by: Dictated on workstation # [id number]
--- NOTE | 2018-12-26 11:15 | NUR ---
PT LAYING IN BED RESTING. PT STATES THAT HE FEELS FINE AND NEEDS NOTHING AT THIS TIME.
[2018-12-26 11:22] LABS: ALANINE AMINOTRANSFERASE 13 U/L (0-55); ALKALINE PHOSPHATASE 84 U/L (40-136); BILIRUBIN,TOTAL 0.5 MG/DL (0.1-1.0); BUN/CREATININE RATIO 15; CALCIUM 9.1 MG/DL (8.5-10.1); CARBON DIOXIDE 23 MMOL/L (21-32); CHLORIDE 104 MMOL/L (98-107); CREATINE KINASE 99 U/L (30-200); CREATININE SERUM 2.14 MG/DL (0.60-1.30); GFR ESTIMATED 31; GLUCOSE 114 MG/DL (70-105); MAGNESIUM 1.4 MG/DL (1.6-2.4); POTASSIUM 4.3 MMOL/L (3.6-5.0); SODIUM 141 MMOL/L (135-145); TOTAL PROTEIN 7.3 GM/DL (6.4-8.2)
[2018-12-26] MEDS ORDERED: NS IV 1000 ML 1,000 ML IV ONE ×2 (11:26→13:04)
[2018-12-26] MEDS ORDERED: MAGNESIUM 1 GM/100 ML IVPB 100 ML IV ONE (11:30)
[2018-12-26 11:42] LABS: CREATINE KINASE MB 2.7 NG/ML (<6.6); TSH (THYROID ANALYZER) 3.16 UIU/ML (0.35-4.94)
[2018-12-26 11:44] LABS: BILIRUBIN,URINE 1+ (NEGATIVE); CLARITY,URINE SLIGHTLY CLOUDY; COLOR,URINE YELLOW; GLUCOSE, URINE (UA) NEGATIVE (NEGATIVE); KETONES,URINE 1+ (NEGATIVE); LEUKOCYTE ESTERASE ,URINE 2+ (NEGATIVE); NITRITE,URINE NEGATIVE (NEGATIVE); PH,URINE 5 (5-9); PROTEIN,URINE 2+ (NEGATIVE); UROBILINOGEN,URINE 1 MG/DL (NORMAL)
--- NOTE | 2018-12-26 12:05 | ED Cardiac General ---
History of Present Illness General Chief Complaint: Cardiac/General Problems Stated Complaint: LOW BP 88/64 Nursing Triage Note: PT AMBULATE TO ROOM 06 WITHOUT DIFFICULTY WITH C/O HYPOTENSION STARTING THIS MORNING. PT STATES THAT AFTER BREAKFAST HE DIDN'T FEEL WELL WITH HEADACHE, DIZZYNESS. PT REPORTS HX OF AFIB. Source: patient History of Present Illness Date Seen by Provider: Dec 26, 2018 Time Seen by Provider: 10:35 Initial Comments PT ARRIVES VIA POV FROM HOME C/O LOW BLOOD PRESSURE SINCE AROUND 0800 THIS AM C/O SOME DIZZINESS C/O DULL HEADACHE AND PAIN TO LEFT TMJ AREA NO CHEST PAIN NO SHORTNESS OF BREATH NO SYNCOPE NO SWELLING IN LEGS/FEET OR PAIN IN CALVES NO SWEATS PT HAS CHRONIC ATRIAL FIBRILLATION AND IS ON ELIQUIS AND FLECANIDE--STATES HE IS ALWAYS OUT OF RHYTHM HAD FAILED CARDIOVERSION 11/2017 PT ALSO HAS HISTORY OF HTN AND HYPERLIPIDEMIA TOOK ALL AM MEDICATIONS AROUND 0700 THIS AM. 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 ALFARO Allergies and Home Medications Allergies Coded Allergies: No Known Drug Allergies (Unverified , 08/10/17) Home Medications Diltiazem HCl 240 Mg Cap.er.24h, 240 MG PO DAILY Prescribed by: ELIDIA BERUMEN on 08/11/17 1610 Diltiazem HCl 240 Mg Cap.er.24h, 240 MG PO DAILY, (Reported) Flecainide Acetate 100 Mg Tablet, 100 MG PO BID Prescribed by: GRACIE ALFARO on 10/05/17 0922 Losartan/Hydrochlorothiazide 1 Each Tablet, 1 EACH PO DAILY, (Reported) Nitrofurantoin Monohyd/M-Cryst 100 Mg Capsule, 100 MG PO BID Prescribed by: GIANNA TURCIOS on 12/26/18 1411 Patient Home Medication List Home Medication List Reviewed: Yes Review of Systems Review of Systems Constitutional: see HPI; No chills, No diaphoresis; dizziness; No fever; malaise EENTM: See HPI Respiratory: No Symptoms Reported; Denies Cough, Denies Orthopnea, Denies Shortness of Air, Denies Wheezing Cardiovascular: See HPI; Denies Chest Pain, Denies Edema; Irregular Heart Rate, Lightheadedness; Denies Syncope Gastrointestinal: No Symptoms Reported; Denies Abdominal Pain, Denies Nausea, Denies Vomiting Genitourinary: Frequency (CHRONIC ) Musculoskeletal: no symptoms reported Skin: no symptoms reported Psychiatric/Neurological: See HPI, Headache; Denies Numbness, Denies Paresthesia, Denies Seizure, Denies Tingling, Denies Weakness Endocrine: No Symptoms Reported Hematologic/Lymphatic: No Symptoms Reported Past Skntfxb-Lbumfq-Ypcrcf Hx Patient Social History Alcohol Use: Rarely Uses Recreational Drug Use: No Smoking Status: Former Smoker Type Used: Cigarettes Former Smoker, Quit: Oct 05, 2016 2nd Hand Smoke Exposure: Yes Recent Foreign Travel: No Contact w/Someone Who Travel: No Recent Infectious Disease Expo: No Recent Hopitalizations: No Physical Abuse: No Sexual Abuse: No Mistreated: No Fear: No Seasonal Allergies Seasonal Allergies: No Past Medical History Surgeries: Yes (CARDIOVERSION 11/2017) Orthopedic Respiratory: No Cardiac: Yes (AORTIC STENOSIS/MITRAL AN D TRICUSPID REGURGITATION) Atrial Fibrillation, Heart Murmur, High Cholesterol, Hypertension, Valvular Heart Disease Neurological: No Genitourinary: No Gastrointestinal: Yes Gastroesophageal Reflux, Ulcer Musculoskeletal: No Endocrine: No HEENT: No Loss of Vision: Denies Hearing Impairment: Denies Cancer: No Psychosocial: No Integumentary: No Blood Disorders: No Adverse Reaction/Blood Tranf: No Family Medical History No Pertinent Family Hx Physical Exam Vital Signs Vital Signs - First Documented 12/26/18 10:34 Temp 98.4 Pulse 99 Resp 15 B/P (MAP) 120/100 (107) Pulse Ox 94 O2 Delivery Room Air Capillary Refill : Less Than 3 Seconds Height, Weight, BMI Height: 6'0" Weight: 280lbs. 11.2oz. 127.198775kd; 39.3 BMI Method:Stated General Appearance: No Apparent Distress, WD/WN Neck: Full Range of Motion, Normal Inspection, Non Tender, Supple; No Carotid Bruit, No JVD Respiratory: Chest Non Tender, Normal Breath Sounds, No Accessory Muscle Use, No Respiratory Distress Cardiovascular: No Edema, No JVD, Normal Peripheral Pulses, Systolic Murmur (? FAINT ? ), Irregularly Irregular Gastrointestinal: Non Tender, Soft Extremity: Normal Capillary Refill, Normal Inspection, Normal Range of Motion, Non Tender, No Calf Tenderness, No Pedal Edema Neurologic/Psychiatric: Alert, Oriented x3, No Motor/Sensory Deficits, Normal Mood/Affect, food and beverage assistant II-XII Norm as Tested Skin: Normal Color, Warm/Dry Progress/Results/Core Measures Results/Orders Lab Results Laboratory Tests Test 12/26/18 10:55 12/26/18 11:26 12/26/18 13:17 Range/Units White Blood Count 7.3 4.3-11.0 10^3/uL Red Blood Count 5.06 4.35-5.85 10^6/uL Hemoglobin 15.1 13.3-17.7 G/DL Hematocrit 45 40-54 % Mean Corpuscular Volume 89 80-99 FL Mean Corpuscular Hemoglobin 30 25-34 PG Mean Corpuscular Hemoglobin Concent 34 32-36 G/DL Red Cell Distribution Width 14.1 10.0-14.5 % Platelet Count 159 130-400 10^3/uL Mean Platelet Volume 10.0 7.4-10.4 FL Neutrophils (%) (Auto) 71 42-75 % Lymphocytes (%) (Auto) 16 12-44 % Monocytes (%) (Auto) 12 0-12 % Eosinophils (%) (Auto) 1 0-10 % Basophils (%) (Auto) 0 0-10 % Neutrophils # (Auto) 5.2 1.8-7.8 X 10^3 Lymphocytes # (Auto) 1.2 1.0-4.0 X 10^3 Monocytes # (Auto) 0.8 0.0-1.0 X 10^3 Eosinophils # (Auto) 0.1 0.0-0.3 10^3/uL Basophils # (Auto) 0.0 0.0-0.1 10^3/uL Prothrombin Time 14.1 12.2-14.7 SEC INR Comment 1.1 0.8-1.4 Activated Partial Thromboplast Time 39 H 24-35 SEC Sodium Level 141 140 135-145 MMOL/L Potassium Level 4.3 4.6 3.6-5.0 MMOL/L Chloride Level 104 106 98-107 MMOL/L Carbon Dioxide Level 23 21 21-32 MMOL/L Anion Gap 14 13 5-14 MMOL/L Blood Urea Nitrogen 32 H 33 H 7-18 MG/DL Creatinine 2.14 H 2.05 H 0.60-1.30 MG/DL Estimat Glomerular Filtration Rate 31 33 BUN/Creatinine Ratio 15 16 Glucose Level 114 H 112 H 70-105 MG/DL Calcium Level 9.1 9.0 8.5-10.1 MG/DL Corrected Calcium 9.1 8.5-10.1 MG/DL Magnesium Level 1.4 L 1.6-2.4 MG/DL Total Bilirubin 0.5 0.1-1.0 MG/DL Aspartate Amino Transf (AST/SGOT) 14 5-34 U/L Alanine Aminotransferase (ALT/SGPT) 13 0-55 U/L Alkaline Phosphatase 84 40-136 U/L Total Creatine Kinase 99 30-200 U/L Creatine Kinase MB 2.7 <6.6 NG/ML Myoglobin 74.0 10.0-92.0 NG/ML Troponin I < 0.028 < 0.028 <0.028 NG/ML B-Type Natriuretic Peptide 302.0 H <100.0 PG/ML Total Protein 7.3 6.4-8.2 GM/DL Albumin 4.0 3.2-4.5 GM/DL TSH [facility] Testing 3.16 0.35-4.94 UIU/ML Urine Color YELLOW Urine Clarity SLIGHTLY CLOUDY Urine pH 5 5-9 Urine Specific [place] 1.020 1.016-1.022 Urine Protein 2+ H NEGATIVE Urine Glucose (UA) NEGATIVE NEGATIVE Urine Ketones 1+ H NEGATIVE Urine Nitrite NEGATIVE NEGATIVE Urine Bilirubin 1+ H NEGATIVE Urine Urobilinogen 1 NORMAL MG/DL Urine Leukocyte Esterase 2+ H NEGATIVE Urine RBC (Auto) 1+ H NEGATIVE Urine RBC NONE /HPF Urine WBC 5-10 H /HPF Urine Squamous Epithelial Cells 5-10 /HPF Urine Crystals NONE /LPF Urine Bacteria MODERATE H /HPF Urine Casts NONE /LPF Urine Mucus NEGATIVE /LPF Urine Culture Indicated YES My Orders Orders - GIANNA TURCIOS DO Ed Iv/Invasive Line Start (12/26/18 10:36) Ekg Tracing (12/26/18 10:36) O2 (12/26/18 10:36) Monitor-Rhythm Ecg Trace Only (12/26/18 10:36) BNP (12/26/18 10:36) Cbc With Automated Diff (12/26/18 10:36) Comprehensive Metabolic Panel (12/26/18 10:36) Creatine Kinase (12/26/18 10:36) Creatine Kinase Mb (12/26/18 10:36) Magnesium (12/26/18 10:36) Protime With Inr (12/26/18 10:36) Partial Thromboplastin Time (12/26/18 10:36) Thyroid Analyzer (12/26/18 10:36) Ua Culture If Indicated (12/26/18 10:36) Myoglobin Serum (12/26/18 10:36) Troponin I (12/26/18 10:36) Chest 1 View, Ap/Pa Only (12/26/18 10:36) Magnesium 1 Gm/100 Ml Ivpb (Magnesium Griffith (12/26/18 11:30) Ed Iv/Invasive Line Start (12/26/18 11:26) Ns Iv 1000 Ml (Sodium Chloride 0.9%) (12/26/18 11:26) Urine Culture (12/26/18 11:26) Ed Iv/Invasive Line Start (12/26/18 13:04) Ns Iv 1000 Ml (Sodium Chloride 0.9%) (12/26/18 13:04) Basic Metabolic Panel (12/26/18 13:04) Troponin I (12/26/18 13:04) Ceftriaxone For Iv Use (Rocephin For I (12/26/18 13:15) Ekg Tracing (12/26/18 13:37) Medications Given in ED Current Medications Medications Dose Ordered Sig/Sid Route Start Time Stop Time Status Last Admin Dose Admin Ceftriaxone Sodium 1000 mg/ Sterile Water 10 ml @ 200 mls/hr ONCE ONCE IV 12/26/18 13:15 12/26/18 13:17 DC 12/26/18 13:20 200 MLS/HR Magnesium Sulfate/ Dextrose 100 ml @ 100 mls/hr ONCE ONCE IV 12/26/18 11:30 12/26/18 12:29 DC 12/26/18 11:36 100 MLS/HR Sodium Chloride 1,000 ml @ 0 mls/hr Q0M ONCE IV 12/26/18 11:26 12/26/18 11:29 DC 12/26/18 11:36 999 MLS/HR Sodium Chloride 1,000 ml @ 0 mls/hr Q0M ONCE IV 12/26/18 13:04 12/26/18 13:05 DC 12/26/18 13:13 999 MLS/HR Vital Signs/I&O 12/26/18 12/26/18 12/26/18 10:34 10:38 14:21 Temp 98.4 Pulse 99 87 Resp 15 16 B/P (MAP) 120/100 (107) 106/71 (83) Pulse Ox 94 96 96 O2 Delivery Room Air Room Air Room Air Blood Pressure Mean: 107 Progress Progress Note : Progress Note NO HYPOTENSION DURING ER STAY HR REMAINED < 120--PT STATES HR NORMALLY 90-110 NO OTHER SYMPTOMS DURING ER STAY Initial ECG Impression Date: Dec 26, 2018 Initial ECG Impression Time: 10:47 Initial ECG Rate: 100 Initial ECG Rhythm: A Fib/Flutter Initial ECG Comparisson: Unchanged EKG : EKG Time: 13:45 Rate: 77 Rhythm: A Fib/Flutter ECG Comparisson: Unchanged Diagnostic Imaging Comments CXR--LLL ATELECTASIS OR INFILTRATE, PER RADIOLOGIST REPORT AT 1155 Reviewed: Reviewed by Me Departure Impression Primary Impression: Hypotensive episode Additional Impressions: Chronic atrial fibrillation Acute on chronic renal insufficiency UTI (urinary tract infection) Dehydration Hypomagnesemia Disposition: 01 HOME, SELF-CARE Condition: Improved Departure-Patient Inst. Referrals: GRACIE ALFARO MD NO,LOCAL PHYSICIAN (PCP) Primary Care Physician Patient Instructions: Urinary Tract Infection, Adult (DC), Kidney Failure (DC), Low Blood Pressure (DC), Atrial Fibrillation (DC), Low Magnesium Level (DC) Add. Discharge Instructions: TAKE YOUR MEDICATIONS PRESCRIBED INCREASE YOUR FLUID INTAKE FOLLOW UP WITH DR. ALFARO THIS WEEK FOR FURTHER CARE RETURN TO ER IF WORSE All discharge instructions reviewed with patient and/or family. Voiced understanding. Scripts Nitrofurantoin Monohyd/M-Cryst (Macrobid 100 mg Capsule) 100 Mg Capsule 100 MG PO BID, #20 CAP Prov: GIANNA TURCIOS DO 12/26/18 GIANNA TURCIOS DO Dec 26, 2018 12:05
--- NOTE | 2018-12-26 12:06 | NUR ---
PT SITTING ON SIDE OF BED WITH FAMILY IN ROOM. PT STATES THAT HE IS THRISTY. PROVIDER NOTIFIED AND PT ALLOWED TO HAVE A DRINK.
[2018-12-26 12:10] LABS: BACTERIA,URINE MODERATE /HPF
--- NOTE | 2018-12-26 13:01 | NUR ---
PT SITTING ON SIDE OF BED. PT STATES HE NEEDS NOTHING AT THIS TIME. PT INSTRUCTED TO USE CALL LIGHT IF THERE IS ANYTHING HE NEEDS.
[2018-12-26] MEDS ORDERED: cefTRIAXone FOR IV USE 1,000 MG in WATER (STERILE) FOR INJECTION 10 ML IV ONE (13:15)
[2018-12-26 13:42] LABS: BUN/CREATININE RATIO 16; CARBON DIOXIDE 21 MMOL/L (21-32); CHLORIDE 106 MMOL/L (98-107); CREATININE SERUM 2.05 MG/DL (0.60-1.30); GFR ESTIMATED 33; GLUCOSE 112 MG/DL (70-105); POTASSIUM 4.6 MMOL/L (3.6-5.0); SODIUM 140 MMOL/L (135-145)
--- NOTE | 2018-12-26 13:58 | NUR ---
PT SITTING ON SIDE OF BED. PT STATES HE IS EAGER TO BE DISCHARGED. PT STATES THERE IS NOTHING HE NEEDS AT THIS TIME. PT REMAINS IS GOOD SPIRITS WITH SENSE OF HUMOR IN TACT. PT INSTRUCTED TO USE CALL LIGHT IF THERE IS ANYTHING HE NEEDS.
[2018-12-26] MEDS ORDERED: NITR-65 PO (14:11)
[2018-12-26 14:21] VITALS: BP 106/71
[2018-12-26 14:28] LABS: INR 1.1 (0.8-1.4); PROTHROMBIN TIME PATIENT 14.1 SEC (12.2-14.7)
== END 2018-12-26 14:21 | disposition home or self-care (01) ==
LOC: EDUNIT# 10:26 → ER 10:27
DX: I95.9 Hypotension, unspecified (principal); I12.9 Hypertensive chronic kidney disease with stage 1 through stage 4 chronic kidney disease, or unspecified chronic kidney disease; I48.2 Chronic atrial fibrillation; N18.9 Chronic kidney disease, unspecified; N39.0 Urinary tract infection, site not specified; E86.0 Dehydration; E83.42 Hypomagnesemia; I48.91 Unspecified atrial fibrillation; E78.00 Pure hypercholesterolemia, unspecified; K21.9 Gastro-esophageal reflux disease without esophagitis; Z79.01 Long term (current) use of anticoagulants; Z87.891 Personal history of nicotine dependence
CPT/HCPCS: 36415; 71045; 80048; 80053; 81000; 82550; 82553; 83735; 83874; 83880; 84443; 84484; 85025; 85610; 85730; 87077; 87088; 93005; 93041

== ENCOUNTER → 2018-12-31 | Day surgery (SDC) | payer MEDICARE ==
[~2018-12-31] VITALS: Ht 182.9 cm; Wt 127.0 kg
[~2018-12-31] MED LIST changes: +ACET-2469 PO; +APIXABAN 5 MG (ELIQUIS) TABLET PO SCH; +ATOR10TA PO; +DILTIAZEM 240 MG (CARDIZEM CD) CAP PO SCH; +FLECAINIDE 100 MG (TAMBOCOR) TAB PO SCH; +FURO-125 PO; +HYDROCHLOROTHIAZIDE 25 MG (HCTZ) TAB PO SCH; +LOSARTAN 100 MG (COZAAR) TABLET PO SCH; +MIDAZOLAM 5 MG/5 ML (VERSED) VIAL ONE; +NITR-65 PO; +NS IV 1000 ML 1,000 ML IV SCH; +NS IV 1000 ML 1,000 ML ONE; +proPOfol 200 MG/20 ML (DIPRIVAN) VIAL IV ONE
[2018-12-31 10:39] VITALS: BP 134/107
[2018-12-31 10:49] LABS: HEMOGLOBIN 15.4 G/DL (13.3-17.7); MEAN PLATELET VOLUME 10.3 FL (7.4-10.4); WHITE BLOOD COUNT 7.4 10^3/uL (4.3-11.0)
--- NOTE | 2018-12-31 11:05 | NUR ---
SPOKE WITH THE PT (HE BROUGHT IN HIS BOTTLES) AND WENT THRU THE EXT MED HISTORY TO COMPLETE THE MED REC. PT WAS ABLE TO VERIFY ALL HIS MEDS AND HOW TO TOOK THEM. CARTIA 240MG: PT INDICATED THAT AT THE USED TO TAKE THIS BID BUT HE IS NOW TAKING IT ONCE DAILY ( THE BOTTLE SAID ONCE DAILY). OTC MEDS: TYLENOL PM: 1 TAB HS PRN
[2018-12-31 11:08] LABS: INR 1.1 (0.8-1.4); PROTHROMBIN TIME PATIENT 14.7 SEC (12.2-14.7)
[2018-12-31 11:13] LABS: ALBUMIN 4.2 GM/DL (3.2-4.5); BILIRUBIN,TOTAL 0.7 MG/DL (0.1-1.0); CALCIUM 9.6 MG/DL (8.5-10.1); CREATININE SERUM 1.73 MG/DL (0.60-1.30); POTASSIUM 4.3 MMOL/L (3.6-5.0); TOTAL PROTEIN 7.4 GM/DL (6.4-8.2)
--- NOTE | 2018-12-31 11:24 | Cardiac Procedure Note-CS/ASA ---
Pre-Procedure Note Pre-Op Procedure Note H&P Reviewed The H&P was reviewed, patient examined and no changes noted. Date H&P Reviewed: Dec 31, 2018 Time H&P Reviewed: 11:24 Conscious Sedation Pre-Proced Time 11:24 ASA Score 3 For ASA 3 and 4: Consider anesthesia and medical clearance. Also, for patients with a history of failed moderate sedation consider anesthesia. Airway Lungs Heart ASA score ASA 1: a normal healthy patient ASA 2: a patient with a mild systemic disease (mid diabetes, controlled hypertension, obesity x ASA 3: a patient with a severe systemic disease that limits activity (angina, COPD, prior Myocardial infarction) ASA 4: a patient with an incapacitating disease that is a constant threat to life (CHF, renal failure) ASA 5: a moribund patient not expected to survive 24 hrs. (ruptured aneurysm) ASA 6: a declared brain- patient whose organs are being harvested. For emergent operations, add the letter E after the classification Mallampati Classification Grade 3 Sedation Plan Analgesia, Amnesia, Plan communicated to team members, Discussed options with patient/fam, Discussed risks with patient/fam The patient is an appropriate candidate to undergo the planned procedure, sedation, and anesthesia. The patient immediately re-assessed prior to indication. GRACIE ALFARO MD Dec 31, 2018 11:24
--- NOTE | 2018-12-31 11:42 | Anesthesia-Procedure Note ---
Procedures/Interventions Procedure Start/Stop/Diagnosis Date of Procedure: Dec 31, 2018 Start Time: 11:16 Referring Physician: Irlanda Preprocedural Diagnosis: a fib Brief History Called to ballistics laboratory gunsmith for cardioversion, no RICHA. History obtained from patient. He denies allergies to medications. Discussed using propofol IV for sedation, patient agreed. Total of 110mg Propofol IV given for procedure. Successful conversion to NSR on 2nd attempt. Patient awake and talking with staff post procedure. VSS. Stop Time: 11:27 Postprocedural Diagnosis: OUMAR CHOW CRNA Dec 31, 2018 11:42
[2018-12-31 11:47] VITALS: BP 121/98
[2018-12-31 12:02] VITALS: BP 135/89
[2018-12-31 12:20] VITALS: BP 115/84
--- NOTE | 2018-12-31 12:24 | Cardioversion ---
Cardioversion PROCEDURE PHYSICIAN: Gracie Fournier DATE OF PROCEDURE: 12/31/18 DIRECT EXTERNAL ELECTRICAL CARDIOVERSION: Indications: Atrial Fibrillation with rapid ventricular rate Preoperative diagnoses: Atrial Fibrillation with rapid ventricular rate Postoperative diagnosis: Sinus rhythm, Successful Electrical Cardioversion History: 63 years old gentleman with history of paroxysmal atrial fibrillation underwent RICHA with electrical cardioversion earlier this month, was back to atrial fibrillation with shortness of breath, increase flecainide to 150 mg twice daily and plan for electrical cardioversion Anesthesia: By Anesthesia services Complications: None Specimen: None Contrast: 0 Flouroscopy: none Procedure Details: The patient was brought the laborer tan house after informed consent was taken, all the risks and complications were explained including the risk of stroke. Electrical cardioversion was carried out with anesthesia support with propofol. 200 joules of synchronized shock was delivered through external patches which promptly restored sinus rhythm. The patient tolerated the procedure well. Conclusions: Successful electrical cardioversion with no complication Final Diagnosis: paroxysmal atrial fibrillation Palpitation Shortness of breath Hypertension GRACIE FOURNIER MD Dec 31, 2018 12:24
[2018-12-31 12:56] VITALS: BP 118/86
[2018-12-31 13:12] VITALS: BP 119/81
--- NOTE | 2018-12-31 14:09 | Anesthesia-General Post-Op ---
MAC Patient Condition Mental Status/LOC: Same as Preop Cardiovascular: Satisfactory Nausea/Vomiting: Absent Respiratory: Satisfactory Pain: Controlled Complications: Absent Post Op Complications Complications None Follow Up Care/Instructions Patient Instructions None needed. Anesthesiology Discharge Order Discharge Order Patient is doing well, no complaints, stable vital signs, no apparent adverse anesthesia problems. No complications reported per nursing. TESHA ZUNIGA CRNA Dec 31, 2018 14:09
== END | disposition home or self-care (01) ==
LOC: CATH 10:17
PROVIDERS: ATTEND Internal Medicine Cardiovascular Disease
DX: I48.0 Paroxysmal atrial fibrillation (principal); R00.2 Palpitations; R06.02 Shortness of breath; I10 Essential (primary) hypertension; Z11.2 Encounter for screening for other bacterial diseases; E78.2 Mixed hyperlipidemia; I08.3 Combined rheumatic disorders of mitral, aortic and tricuspid valves; I27.20 Pulmonary hypertension, unspecified; E66.9 Obesity, unspecified; Z79.899 Other long term (current) drug therapy; Z79.01 Long term (current) use of anticoagulants; G47.10 Hypersomnia, unspecified; G47.00 Insomnia, unspecified; R68.3 Clubbing of fingers; Z87.891 Personal history of nicotine dependence; Z68.38 Body mass index [BMI] 38.0-38.9, adult
CPT/HCPCS: 36415; 80053; 85027; 85610; 85730; 87081; 93005

== ENCOUNTER 2019-01-01 01:19 | Observation (INO) | payer MEDICARE | END 2019-01-01 13:35 | disposition home or self-care (01) | LOC: ER 01:19 → 4TH 03:45 ==

== ENCOUNTER → 2019-01-27 | Outpatient (CLI) | payer MEDICARE ==
[~2019-01-27] MED LIST changes: -APIXABAN 5 MG (ELIQUIS) TABLET PO SCH; -DILTIAZEM 240 MG (CARDIZEM CD) CAP PO SCH; -FLECAINIDE 100 MG (TAMBOCOR) TAB PO SCH; -HYDROCHLOROTHIAZIDE 25 MG (HCTZ) TAB PO SCH; -LOSARTAN 100 MG (COZAAR) TABLET PO SCH; -MIDAZOLAM 5 MG/5 ML (VERSED) VIAL ONE; -NS IV 1000 ML 1,000 ML IV SCH; -NS IV 1000 ML 1,000 ML ONE; -proPOfol 200 MG/20 ML (DIPRIVAN) VIAL IV ONE
[2019-01-27 10:58] LABS: CREATININE SERUM 1.69 MG/DL (0.60-1.30)
== END ==
LOC: RAD 10:27
PROVIDERS: ATTEND Internal Medicine Cardiovascular Disease
DX: I65.29 Occlusion and stenosis of unspecified carotid artery (principal)
CPT/HCPCS: 36415; 82565; 84520

== ENCOUNTER 2019-02-03 12:12 | Outpatient (CLI) | payer MEDICARE | END 2019-02-03 13:15 | disposition home or self-care (01) | LOC: SLEEP 12:12 | PROVIDERS: ATTEND Internal Medicine Cardiovascular Disease | DX: G47.33 Obstructive sleep apnea (adult) (pediatric) (principal); G47.10 Hypersomnia, unspecified; I49.9 Cardiac arrhythmia, unspecified; I10 Essential (primary) hypertension ==

== ENCOUNTER → 2019-02-03 | Outpatient (CLI) | payer MEDICARE ==
[2019-02-03 13:40] LABS: CREATININE SERUM 1.74 MG/DL (0.60-1.30)
== END ==
LOC: RAD 12:08
PROVIDERS: ATTEND Internal Medicine Cardiovascular Disease
DX: I65.29 Occlusion and stenosis of unspecified carotid artery (principal)
CPT/HCPCS: 36415; 82565; 84520

== ENCOUNTER 2019-03-28 06:49 | Day surgery (SDC) | payer MEDICARE, OTHER ==
[~2019-03-28] VITALS: Ht 182 cm; Wt 133.0 kg
[2019-03-28] VITALS (10 sets, daily range): BP systolic 96–146; BP diastolic 66–116
[2019-03-28] MEDS ORDERED: NS IV 1000 ML 1,000 ML ONE ×2 (06:55→08:17)
[2019-03-28] MEDS ORDERED: LIDOCAINE 1% INJ 20 ML 20 ML VIAL ONE (06:55)
[2019-03-28] MEDS ORDERED: HEParin (CATH LAB) 1,000 ML IV ONE (06:55)
[2019-03-28] MEDS ORDERED: NS IV 1000 ML 1,000 ML IV SCH (06:55)
[2019-03-28] MEDS ORDERED: HEParin 1000 UNIT/ML (10ML VIAL) FOR BOLUS ONE (06:57)
[2019-03-28] MEDS ORDERED: HEParin DRIP 25000 UNIT/500ML 500 ML IV ONE (06:57)
[2019-03-28] MEDS ORDERED: ISOPROTERENOL 0.2 MG/D5W 50 ML IV ONE (07:00)
[2019-03-28] MEDS ORDERED: SUCCINYLCHOLINE INJ 100 MG/5 ML SYR ONE (07:13)
[2019-03-28] MEDS ORDERED: proPOfol 200 MG/20 ML (DIPRIVAN) VIAL IV ONE (07:13)
[2019-03-28] MEDS ORDERED: ROCURONIUM 10 MG/ML 5 ML SYRINGE IV ONE (07:13)
[2019-03-28 07:14] LABS: HEMOGLOBIN 14.8 G/DL (13.3-17.7); MEAN PLATELET VOLUME 9.9 FL (7.4-10.4)
[2019-03-28] MEDS ORDERED: ONDANSETRON 4 MG/2 ML (SDV) Z0FRAN ONE (07:14)
[2019-03-28] MEDS ORDERED: MIDAZOLAM 2 MG/2 ML (VERSED) VIAL ONE (07:14)
[2019-03-28] MEDS ORDERED: SEVOFLURANE (ULTANE) 15 ML INHAL SOLN ONE (07:14)
[2019-03-28] MEDS ORDERED: fentaNYL INJECTION 100 MCG/2 ML AMP ONE (07:14)
[2019-03-28 07:26] LABS: PROTHROMBIN TIME PATIENT 13.7 SEC (12.2-14.7)
[2019-03-28 07:32] LABS: ALBUMIN 4.4 GM/DL (3.2-4.5); BILIRUBIN,TOTAL 0.6 MG/DL (0.1-1.0); CALCIUM 8.8 MG/DL (8.5-10.1); CREATININE SERUM 1.7 MG/DL (0.60-1.30); POTASSIUM 4.1 MMOL/L (3.6-5.0)
[2019-03-28] MEDS ORDERED: PHENYLEPHRINE 100 MCG/ML 10 ML (ANESTHESIA) SYR ONE (07:51)
[2019-03-28] MEDS ORDERED: NEOSTIGMINE 3 MG/3 ML VIAL ONE (08:30)
[2019-03-28] MEDS ORDERED: GLYCOPYRROLATE 0.2 MG/ML (ROBINUL) 2 ML VIAL ONE (08:30)
[2019-03-28] MEDS ORDERED: NS (IVPB) 100 ML ONE (08:43)
[2019-03-28] MEDS ORDERED: WATER (STERILE) FOR INJ 10 ML BTL INJ ONE (08:45)
[2019-03-28] MEDS ORDERED: cefTRIAXone FOR IV USE 1,000 MG in WATER (STERILE) FOR INJECTION 10 ML IV ONE (08:45)
--- NOTE | 2019-03-28 08:57 | History & Physicial-Cardiolgy ---
HPI-Cardiology Cardiology Consultation: Date of Consultation 03/28/19 Date of Admission Attending Physician Corey Mccollum MD Admitting Physician Tiffanie,Local Physician Consulting Physician Corey MCCOLLUM MD HPI: Time Seen by a Provider: 08:00 Chief Complaint: Paroxysmal atrial fibrillation This is a 63-year-old gentleman with paroxysmal atrial fibrillation with symptoms. He is on oral anticoagulation and antiarrhythmic therapy. EP study and atrial fibrillation ablation is recommended. Review of Systems-Cardiology Review of Systems Constitutional: As described under HPI; No As described under HPI, No no symptoms reported, No chills, No fever, No lightheadedness Eyes: No As described under HPI, No no symptoms reported, No blindness, No blurred vision, No contact lenses, No drainage, No decreased acuity, No foreign body sensation, No pain, No vision change Ears/Nose/Throat: No As described under HPI, No no symptoms reported, No chronic hearing loss, No ear discharge, No ear pain, No nasal drainage, No ulcerations Respiratory: No no symptoms reported; As described under HPI; No As described under HPI, No cough, No orthopnea, No shortness of breath, No SOB with excertion Cardiovascular: No no symptoms reported; As described under HPI; No As described under HPI, No chest pain, No edema, No irregular heart rate, No lightheadedness, No palpitations Gastrointestinal: No no symptoms reported, No As described under HPI, No abdomen distended, No abdominal pain, No blood streaked bowels, No constipation, No diarrhea, No nausea, No vomiting, No stool coloration changes Genitourinary: No As described under HPI, No burning, No dysuria, No discharge, No frequency, No flank pain, No hematuria, No urgency Skin: No rash, No skin related problems, No ulcerations Psychiatric/Neurological: No anxiety, No depression, No seizure, No focal weakness, No syncope Hematologic: No bleeding abnormalities NZI-Wcbxiy-Rzoosz Hx Patient Social History Recreational Drug Use: No Smoking Status: Former Smoker Type Used: Cigarettes 2nd Hand Smoke Exposure: Yes Recent Foreign Travel: No Immunizations Up To Date Tetanus Booster (TDap): Unknown Past Medical History PMH As described under Assessment. Allergies and Home Medications Allergies Coded Allergies: No Known Drug Allergies (Unverified , 08/10/17) Home Medications Acetaminophen/Diphenhydramine 1 Each Tablet, 1 EACH PO HS PRN for SLEEP, (Reported) Apixaban 5 Mg Tablet, 5 MG PO BID, (Reported) Atorvastatin Calcium 10 Mg Tablet, 10 MG PO DAILY PRN Prescribed by: GRACIE ALAFRO on 01/01/19 1141 Diltiazem HCl 240 Mg Cap.er.24h, 240 MG PO DAILY, (Reported) Flecainide Acetate 100 Mg Tablet, 100 MG PO BID, (Reported) Furosemide 20 Mg Tablet, 20 MG PO DAILY take one tablet as needed for swelling and shortness of breath not to exceed one tablet daily Prescribed by: GRACIE ALFARO on 01/01/19 1140 Losartan/Hydrochlorothiazide 1 Each Tablet, 1 EACH PO DAILY, (Reported) Nitrofurantoin Monohyd/M-Cryst 100 Mg Capsule, 1 TAB PO BID, (Reported) PICKED UP A 10 DAY SUPPLY ON 12-26-2018 Patient Home Medication List Home Medication List Reviewed: Yes Physical Exam-Cardiology Physical Exam Vital Signs/I&O 03/28/19 07:04 Temp 36.0 Pulse 123 Resp 16 B/P (MAP) 146/116 (126) Pulse Ox 97 O2 Delivery Room Air Capillary Refill : Constitutional: appears stated age, AAO x 3; No apparent distress; well- developed, well-nourished HEENT: PERRL; No discharge; hearing is well preserved, oral hygience is good; No ulceration, No xanthelasmas are seen Neck: No carotid bruit; carotid pulses are 2 + bilaterally Respiratory: chest is bilaterally symmetric, lungs clear to auscultation Cardiovascular: regular rate-rhythm, S1 and S2 Gastrointestinal: soft, audible bowel sounds; No spleenomegaly Rectal: deferred Extremities: No clubbing, No cyanosis, No significant edema Neurologic/Psychiatric: alert, oriented x 3, power is 5/5 both on sides Skin: No rash, No ulcerations Data Review Labs Laboratory Tests 03/28/19 07:07: White Blood Count 9.0, Red Blood Count 4.89, Hemoglobin 14.8, Hematocrit 45, Mean Corpuscular Volume 93, Mean Corpuscular Hemoglobin 30, Mean Corpuscular Hemoglobin Concent 33, Red Cell Distribution Width 14.0, Platelet Count 160, Mean Platelet Volume 9.9, Prothrombin Time 13.7, INR Comment 1.0, Activated Partial Thromboplast Time 42H, Sodium Level 141, Potassium Level 4.1, Chloride Level 107, Carbon Dioxide Level 22, Anion Gap 12, Blood Urea Nitrogen 25H, Creatinine 1.70H, Estimat Glomerular Filtration Rate 41, BUN/Creatinine Ratio 15, Glucose Level 125H, Calcium Level 8.8, Corrected Calcium 8.5, Total Bilirubin 0.6, Aspartate Amino Transf (AST/SGOT) 20, Alanine Aminotransferase (ALT/SGPT) 27, Alkaline Phosphatase 88, Total Protein 8.0, Albumin 4.4 A/P-Cardiology Assessment/Admission Diagnosis Paroxysmal atrial fibrillation Admission Status: Observation Plan Atrial fibrillation ablation is recommended. Corey MCCOLLUM MD Mar 28, 2019 8:57 am POS
[2019-03-28] MEDS ORDERED: MEPERIDINE (DEMEROL) INJ 50 MG/ML IVP ONE (09:00)
[2019-03-28] MEDS ORDERED: ONDANSETRON 4 MG/2 ML (SDV) Z0FRAN IVP PRN (09:00)
[2019-03-28] MEDS ORDERED: morphine INJ 10 MG/ML 1ML (SYR OR VIAL) IVP ONE (09:00)
--- NOTE | 2019-03-28 11:30 | NUR ---
PATIENT ABLE TO VOID 300ML URINE AT THIS TIME. AT [address] ROJAS TO OBTAIN ORDERS TO DISCHARGE PATIENT AND RECEIVED TELEPHONE ORDER TO HAVE PATIENT HOLD ELIQUIS UNTIL SCHEDULING TO HAVE A CYSTOSCOPY IN DR. ROJAS'S OFFICE ON ThursdayMARCH 30, AT 2:15 P.M.
--- NOTE | 2019-03-28 13:23 | OPERATIVE REPORT ---
DATE OF SERVICE: 03/28/2019 ATTENDING PHYSICIAN: Ernst Mccollum MD I was asked by Dr. Mccollum to see this 63-year-old white man who was about to undergo a cardiac ablation. Under anesthesia, they were unable to put a catheter in him. On physical exam, the patient has a severe hypospadias meatal stricture. I went ahead and I was able to dilate it to #20 Greek. However, there was resistance beyond that, which seems to be another stricture. I did not want to disturb it or push things and especially that the patient is on Eliquis and I do not know what's beyond that and the rest of his channel. Especially, that he is asleep and we were unable to get any history, so I discontinued further attempt. Before doing that, I tried to pass catheters from 8 to 18, starting with the 18 first, was unable to do so. IMPRESSION: Meatal and urethral stricture and inability to insert a Cuevas catheter. PLAN: I am going to have the patient come this week for a cystoscopy and I will schedule him also after that for a retrograde urethrogram. See him back the following week and manage according to the findings. If we have to do a procedure on him, I will have to hold his Eliquis, which is okay with Dr. Mccollum. Job ID: [id number] DocumentID: [id number] Dictated Date: 03/28/2019 08:46:09 Coffee Maker Date: 03/28/2019 13:22:26 Dictated By: SOM ROJAS MD
--- NOTE | 2019-03-29 13:12 | Anesthesia-General Post-Op ---
General Patient Condition Mental Status/LOC: Same as Preop Cardiovascular: Satisfactory Nausea/Vomiting: Absent Respiratory: Satisfactory Pain: Controlled Complications: Absent Post Op Complications Complications None Follow Up Care/Instructions Patient Instructions None needed. Anesthesia/Patient Condition Patient Condition Patient is doing well, no complaints, stable vital signs, no apparent adverse anesthesia problems. No complications reported per nursing. JESSIE CUELLAR CRNA Mar 29, 2019 13:12 POS
== END 2019-03-28 11:48 | disposition home or self-care (01) ==
LOC: CATH 06:49
PROVIDERS: ATTEND Internal Medicine Interventional Cardiology
DX: I48.0 Paroxysmal atrial fibrillation (principal); N35.911 Unspecified urethral stricture, male, meatal; I10 Essential (primary) hypertension; G47.33 Obstructive sleep apnea (adult) (pediatric); F17.210 Nicotine dependence, cigarettes, uncomplicated; Z99.89 Dependence on other enabling machines and devices; Z86.73 Personal history of transient ischemic attack (TIA), and cerebral infarction without residual deficits; Z79.899 Other long term (current) drug therapy
CPT/HCPCS: 36415; 80053; 85027; 85610; 85730; 87081

== ENCOUNTER → 2019-04-13 | Outpatient (CLI) | payer MEDICARE ==
[~2019-04-13] MED LIST changes: +DIATRIZOATE 30% 300 ML (CYSTOGRAFIN) VIAL UR ONE
--- NOTE | 2019-04-13 10:00 | NUR ---
DURING RETROGRADE URETHROGRAM EXAM, DR. MONTE ORDERED THIS RN TO PLACE FU CATHETER. ATTEMPTED TO INSERT 18F FU CATHETER WITH RESISTANCE. 16F COUDE AND 8F PEDIATRIC CATHETER ATTEMPTED WITH RESISTANCE. DR. ROJAS CALLED TO BEDSIDE TO ATTEMPT CATHETER INSERTION PER DR. MONTE. DR. ROJAS WAS ALSO UNSUCCESSFUL WITH CATHETER INSERTION DUE TO URETHRAL STRICTURE. EXAM ENDED. FOLLOW UP APPT MADE FOR PATIENT TO SEE DR. ROJAS IN OFFICE ON THURSDAY.
--- NOTE | 2019-04-14 07:15 | Diagnostic Imaging Report ---
Fluoroscopy time: 1 minute 18 seconds FINDINGS: Retrograde urethrogram was performed. There is a stricture in the distal urethra, therefore a catheter could not be passed. Proximal to the stricture, the urethra is normal in appearance. No contrast was seen within the bladder. IMPRESSION: Distal urethral stricture approximately 4 cm from the meatus. Findings were discussed directly with Dr. Lerner. Dictated by: Dictated on workstation # [id number]
== END ==
LOC: RAD 08:54
PROVIDERS: ATTEND Urology
DX: N35.919 Unspecified urethral stricture, male, unspecified site (principal)
CPT/HCPCS: 74450

== ENCOUNTER 2019-05-09 22:56 | Emergency (ER) | payer MEDICARE ==
[~2019-05-09] VITALS: Ht 182 cm; Wt 136.0 kg
[~2019-05-09 22:56] MED LIST changes: -DIATRIZOATE 30% 300 ML (CYSTOGRAFIN) VIAL UR ONE
[2019-05-09] MEDS ORDERED: APIX5TAB PO (23:17)
[2019-05-09] MEDS ORDERED: HYDR-700 PO (23:17)
[2019-05-09] MEDS ORDERED: NS IV 1000 ML 1,000 ML IV SCH (23:22)
--- NOTE | 2019-05-09 23:28 | ED Back Pain ---
General Chief Complaint: Back Problems Stated Complaint: R SIDE LOWER BACK PAIN Nursing Triage Note: Pt ambulates to 5wtih c/o rt lower flank pain x 3 days. Pt denies any abd pain or /GI changes. 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 Nursing Sepsis Screen: No Definite Risk Source of Information: Patient, Spouse Exam Limitations: No Limitations History of Present Illness Date Seen by Provider: May 09, 2019 Time Seen by Provider: 23:14 Initial Comments Patient presents to ER by private conveyance with his spouse and chief complaint of 3 or 4 days progressively worsening right sided lower lateral back pain radiating through to the right front. Had a bowel movement normal today. Has not taken any NSAIDs because of a history of kidney disease and on Eliquis for atrial fibrillation. No history of coronary disease. He is not having any nausea or vomiting, diarrhea or constipation. He took oxycodone 5 mg today with no relief. No topical creams. No burning itching or pain to light touch. No fevers or chills. No inciting incident, lifting twisting etc. No history of abdominal surgeries. He has a scheduled uroscopy at next week for some reason. Allergies and Home Medications Allergies Coded Allergies: No Known Drug Allergies (Unverified , 08/10/17) Home Medications Acetaminophen/Diphenhydramine 1 Each Tablet, 1 EACH PO HS PRN for SLEEP, (Reported) Apixaban 5 Mg Tablet, 5 MG PO BID, (Reported) Atorvastatin Calcium 10 Mg Tablet, 10 MG PO DAILY PRN Prescribed by: RGACIE ALFARO on 01/01/19 1141 Diltiazem HCl 240 Mg Cap.er.24h, 240 MG PO BID, (Reported) Flecainide Acetate 100 Mg Tablet, 100 MG PO BID, (Reported) Losartan/Hydrochlorothiazide 1 Each Tablet, 1 EACH PO DAILY, (Reported) Patient Home Medication List Home Medication List Reviewed: Yes Review of Systems Constitutional: No chills, No diaphoresis EENTM: No ear discharge, No ear pain Respiratory: No cough, No short of breath Cardiovascular: No chest pain, No edema Gastrointestinal: No abdominal pain, No constipation, No diarrhea, No nausea Genitourinary: No discharge, No dysuria, No hematuria Musculoskeletal: see HPI, back pain; No joint pain Skin: No pruritus, No rash Psychiatric/Neurological: Denies Headache, Denies Numbness, Denies Paresthesia Past [id number] Hx Patient Social History Alcohol Use: Denies Use Recreational Drug Use: No Smoking Status: Former Smoker Type Used: Cigarettes Former Smoker, Quit: Jul 05, 2018 2nd Hand Smoke Exposure: Yes Recent Foreign Travel: No Contact w/Someone Who Travel: No Recent Infectious Disease Expo: No Recent Hopitalizations: Yes (CARDIOVERSION 12/31/18) Physical Abuse: No Sexual Abuse: No Mistreated: No Fear: No Immunizations Up To Date Tetanus Booster (TDap): Unknown Seasonal Allergies Seasonal Allergies: No Past Medical History Surgeries: Yes (CARDIOVERSION 11/2017) Orthopedic Respiratory: No Sleep Apnea, Pulmonary Fibrosis Currently Using CPAP: Yes Cardiac: Yes (AORTIC STENOSIS/MITRAL AN D TRICUSPID REGURGITATION) Atrial Fibrillation, Heart Murmur, High Cholesterol, Hypertension, Valvular Heart Disease Neurological: No Genitourinary: No Gastrointestinal: Yes Gastroesophageal Reflux, Ulcer Musculoskeletal: No Endocrine: No HEENT: No Loss of Vision: Denies Hearing Impairment: Denies Cancer: No Psychosocial: No Integumentary: No Blood Disorders: No Adverse Reaction/Blood Tranf: No Family Medical History No Pertinent Family Hx Physical Exam Vital Signs Vital Signs - First Documented 05/09/19 23:05 Temp 36.3 Pulse 98 Resp 19 B/P (MAP) 150/118 (129) Pulse Ox 97 O2 Delivery Room Air Capillary Refill : Less Than 3 Seconds Height, Weight, BMI Height: 6'0.00" Weight: 294lbs. 6.0oz. 133.725261pt; 41.00 BMI Method:Stated General Appearance: WD/WN, Mild Distress HEENT: PERRL/EOMI, Pharynx Normal, Moist Mucous Membranes Neck: Full Range of Motion, Normal Inspection Cardiovascular: Regular Rate, Rhythm, No Gallop Respiratory: Lungs Clear, Normal Breath Sounds, No Accessory Muscle Use, No Respiratory Distress Peripheral Pulses: 2+ Radial Pulses (R), 2+ Radial Pulses (L) Gastrointestinal: Normal Bowel Sounds, No Organomegaly, Soft, Tenderness (and right lower quadrant without rebound tenderness, Rovsing sign.) Back: Normal Inspection, No CVA Tenderness, No Vertebral Tenderness, Other (tenderness over the soft tissue of the low right flank posteriorly and anteriorly but not the paraspinous muscles. No limit of range of motion.) Extremity: Normal Capillary Refill, Normal Inspection Neurologic/Psychiatric: Alert, Oriented x3 Skin: Normal Color, Warm/Dry Procedures/Interventions Progress Found the area his right lumbar spine soft tissue that was causing the most mild pain and inserted 1 cc of 1% lidocaine without epinephrine using a 23-gauge 1 inch needle. Patient tolerated procedure well. Progress/Results/Core Measures Results/Orders Lab Results Laboratory Tests Test 05/09/19 23:25 05/10/19 00:15 Range/Units White Blood Count 7.5 4.3-11.0 10^3/uL Red Blood Count 4.64 4.35-5.85 10^6/uL Hemoglobin 14.4 13.3-17.7 G/DL Hematocrit 42 40-54 % Mean Corpuscular Volume 91 80-99 FL Mean Corpuscular Hemoglobin 31 25-34 PG Mean Corpuscular Hemoglobin Concent 34 32-36 G/DL Red Cell Distribution Width 13.6 10.0-14.5 % Platelet Count 141 130-400 10^3/uL Mean Platelet Volume 10.6 H 7.4-10.4 FL Neutrophils (%) (Auto) 62 42-75 % Lymphocytes (%) (Auto) 22 12-44 % Monocytes (%) (Auto) 13 H 0-12 % Eosinophils (%) (Auto) 3 0-10 % Basophils (%) (Auto) 0 0-10 % Neutrophils # (Auto) 4.7 1.8-7.8 X 10^3 Lymphocytes # (Auto) 1.7 1.0-4.0 X 10^3 Monocytes # (Auto) 1.0 0.0-1.0 X 10^3 Eosinophils # (Auto) 0.2 0.0-0.3 10^3/uL Basophils # (Auto) 0.0 0.0-0.1 10^3/uL Sodium Level 138 135-145 MMOL/L Potassium Level 4.0 3.6-5.0 MMOL/L Chloride Level 106 98-107 MMOL/L Carbon Dioxide Level 21 21-32 MMOL/L Anion Gap 11 5-14 MMOL/L Blood Urea Nitrogen 24 H 7-18 MG/DL Creatinine 1.57 H 0.60-1.30 MG/DL Estimat Glomerular Filtration Rate 45 BUN/Creatinine Ratio 15 Glucose Level 120 H 70-105 MG/DL Calcium Level 8.7 8.5-10.1 MG/DL Corrected Calcium 8.5 8.5-10.1 MG/DL Total Bilirubin 0.4 0.1-1.0 MG/DL Aspartate Amino Transf (AST/SGOT) 18 5-34 U/L Alanine Aminotransferase (ALT/SGPT) 18 0-55 U/L Alkaline Phosphatase 87 40-136 U/L C-Reactive Protein High Sensitivity 0.43 0.00-0.50 MG/DL Total Protein 7.2 6.4-8.2 GM/DL Albumin 4.2 3.2-4.5 GM/DL Urine Color YELLOW Urine Clarity CLEAR Urine pH 5.5 5-9 Urine Specific Coward >=1.030 1.016-1.022 Urine Protein NEGATIVE NEGATIVE Urine Glucose (UA) NEGATIVE NEGATIVE Urine Ketones NEGATIVE NEGATIVE Urine Nitrite NEGATIVE NEGATIVE Urine Bilirubin NEGATIVE NEGATIVE Urine Urobilinogen 0.2 < = 1.0 MG/DL Urine Leukocyte Esterase NEGATIVE NEGATIVE Urine RBC (Auto) TRACE-I NEGATIVE Urine RBC RARE /HPF Urine WBC NONE /HPF Urine Squamous Epithelial Cells RARE /HPF Urine Crystals NONE /LPF Urine Bacteria TRACE /HPF Urine Casts NONE /LPF Urine Mucus NEGATIVE /LPF Urine Culture Indicated NO My Orders Orders - TOM GOETZ Fentanyl Injection (Sublimaze Injection (05/09/19 23:30) Ed Iv/Invasive Line Start (05/09/19 23:22) Ns Iv 1000 Ml (Sodium Chloride 0.9%) (05/09/19 23:22) Cbc With Automated Diff (05/09/19 23:22) Comprehensive Metabolic Panel (05/09/19 23:22) Hs C Reactive Protein (05/09/19 23:22) Ua Culture If Indicated (05/09/19 23:22) Ct Abdomen/Pelvis Wo (05/09/19 23:28) Lidocaine 1% Inj 20 Ml (Xylocaine 1% Inj (05/10/19 01:00) Lidocaine 1% Inj 20 Ml (Xylocaine 1% Inj (05/10/19 00:51) Rx-Oxycodone/Apap 5-325 Mg (Rx-Percocet (05/10/19 01:15) Orphenadrine Injection (Norflex Injectio (05/10/19 01:15) Medications Given in ED Current Medications Medications Dose Ordered Sig/Sid Route Start Time Stop Time Status Last Admin Dose Admin Fentanyl Citrate 50 mcg ONCE ONCE IVP 05/09/19 23:30 05/09/19 23:31 DC 05/09/19 23:31 50 MCG Vital Signs/I&O 05/09/19 23:05 Temp 36.3 Pulse 98 Resp 19 B/P (MAP) 150/118 (129) Pulse Ox 97 O2 Delivery Room Air Blood Pressure Mean: 129 Progress Progress Note #1: Time: 23:27 Progress Note Myofascial/musculoskeletal pain versus appendicitis? No rash or burning to suggest shingles. Can't use NSAIDs because of his use of Eliquis and history of kidney disease. As of his age and no history of abdominal surgeries had recommended a CT scan, fluids, basic labs, urine and we'll start her some fentanyl for pain relief. Progress Note #2: Time: 01:07 Progress Note Myofascial pain. We needled it put some lidocaine and it gave him some Norflex through his IV and same home some Percocets and a prescription. Plan to follow up with Dr. Jacobs, primary care to consider further involvement of his goal therapy, massage, steroids, chiropractor, acupuncture etc. Diagnostic Imaging Diagonstic Imaging: CT (without IV contrast) Plain Films/CT/US/NM/MRI: abdomen, pelvis Comments Atrophic right kidney with scarring in the left kidney. No nephrolithiasis or hydronephrosis. There is bilateral mild perinephric stranding. Findings could relate to nephritis. Reviewed: Reviewed Night Hawk Study, Reviewed by Me Departure Impression Primary Impression: Myofascial pain syndrome of lumbar spine Disposition: 01 HOME, SELF-CARE Condition: Stable Departure-Patient Inst. Decision time for Depature: 00:50 Referrals: MJ JACOBS MD (PCP/Family) Primary Care Physician Patient Instructions: Low Back Pain (DC) Add. Discharge Instructions: Drink plenty of fluids and use Tylenol 1000 mg every 8 hours as needed for pain. You may also use the oxycodone 1-2 tablets every 4 hours as needed for breakthrough pain. Cyclobenzaprine 1 tablet every 8 hours as needed for spasms of the muscles of your back. Both these medications will cause drowsiness. Consider following up with Dr. Jacobs for physical therapy, steroids or other intervention if your pain persists over the next couple days. Chiropractors, massage, acupuncture can also be helpful. Follow-up with primary care. All discharge instructions reviewed with patient and/or family. Voiced understanding. Scripts Cyclobenzaprine HCl (Cyclobenzaprine HCl) 10 Mg Tablet 10 MG PO Q8H PRN for SPASMS, #20 TAB 0 Refills Prov: TOM GOETZ 05/10/19 Oxycodone HCl/Acetaminophen (Oxycodone-Acetaminophen 5-325) 1 Each Tablet 1-2 EACH PO Q4H PRN for PAIN-MODERATE MDD 6 for 3 Days, #15 TAB 0 Refills Prov: TOM GOETZ 05/10/19 TOM GOETZ May 09, 2019 23:28
[2019-05-09] MEDS ORDERED: fentaNYL INJECTION 100 MCG/2 ML AMP IVP ONE (23:30)
[2019-05-09 23:34] LABS: BASOPHILS % (AUTO) 0 % (0-10); EOSINOPHILS # (AUTO) 0.2 10^3/uL (0.0-0.3); EOSINOPHILS % (AUTO) 3 % (0-10); HEMATOCRIT 42 % (40-54); HEMOGLOBIN 14.4 G/DL (13.3-17.7); LYMPHOCYTES # (AUTO) 1.7 X 10^3 (1.0-4.0); LYMPHOCYTES % (AUTO) 22 % (12-44); MEAN CORPUSCULAR HEMOGLOBIN 31 PG (25-34); MEAN CORPUSCULAR HGB CONC 34 G/DL (32-36); MEAN CORPUSCULAR VOLUME 91 FL (80-99); MEAN PLATELET VOLUME 10.6 FL (7.4-10.4); MONOCYTES % (AUTO) 13 % (0-12); NEUTROPHILS # (AUTO) 4.7 X 10^3 (1.8-7.8); NEUTROPHILS % (AUTO) 62 % (42-75); PLATELET COUNT 141 10^3/uL (130-400); RED CELL DISTRIBUTION WIDTH 13.6 % (10.0-14.5); WHITE BLOOD COUNT 7.5 10^3/uL (4.3-11.0)
[2019-05-09 23:53] LABS: ALBUMIN 4.2 GM/DL (3.2-4.5); BILIRUBIN,TOTAL 0.4 MG/DL (0.1-1.0); CALCIUM 8.7 MG/DL (8.5-10.1); CREATININE SERUM 1.57 MG/DL (0.60-1.30); TOTAL PROTEIN 7.2 GM/DL (6.4-8.2)
[2019-05-10 00:23] LABS: BILIRUBIN,URINE NEGATIVE (NEGATIVE); CLARITY,URINE CLEAR; COLOR,URINE YELLOW; GLUCOSE, URINE (UA) NEGATIVE (NEGATIVE); KETONES,URINE NEGATIVE (NEGATIVE); LEUKOCYTE ESTERASE ,URINE NEGATIVE (NEGATIVE); NITRITE,URINE NEGATIVE (NEGATIVE); PH,URINE 5.5 (5-9); PROTEIN,URINE NEGATIVE (NEGATIVE)
[2019-05-10 00:36] LABS: BACTERIA,URINE TRACE /HPF; RBC,URINE RARE /HPF; SQUAMOUS EPITHELIAL CELL,UR RARE /HPF
[2019-05-10] MEDS ORDERED: LIDOCAINE 1% INJ 20 ML 20 ML VIAL ONE (00:51)
[2019-05-10] MEDS ORDERED: LIDOCAINE 1% INJ 20 ML 20 ML VIAL INJ ONE (01:00)
[2019-05-10] MEDS ORDERED: OXYC-471 PO (01:09)
[2019-05-10] MEDS ORDERED: CYCL10TA9 PO (01:09)
[2019-05-10] MEDS ORDERED: RX-OXYCODONE/APAP 5-325 MG #4 TAB PK PO PRN (01:15)
[2019-05-10] MEDS ORDERED: ORPHENADRINE 60 MG/2 ML (NORFLEX) AMP IV ONE (01:15)
[2019-05-10 01:17] VITALS: BP 147/84
--- NOTE | 2019-05-10 07:17 | Diagnostic Imaging Report ---
CT ABDOMEN/PELVIS WO TECHNIQUE: Unenhanced CT imaging of the abdomen and pelvis was performed. 2-D reformats are created and submitted for interpretation. Automatic exposure controls were utilized to optimize patient dose. INDICATION: Right flank pain COMPARISON: None available. FINDINGS: Evaluation of the abdominal viscera is mildly limited without contrast. Lower chest: The lung bases are clear. No pericardial or pleural effusion. Peritoneum: No free intraperitoneal air or fluid. Liver and biliary system: Unenhanced liver is normal. The gallbladder is normal. No biliary duct dilation. Spleen and Pancreas: Spleen is normal. Unenhanced pancreas is grossly normal. Adrenals: Normal. tract: Right kidney is asymmetrically small without mass or obstruction. No solid left renal mass or obstruction. No renal or ureteral stones on either side. Urinary bladder is partially filled without wall thickening. Prostate is not enlarged. GI tract: Stomach is decompressed. No bowel obstruction. No pericolonic inflammatory changes. Normal appendix. Vasculature and Lymph nodes: Normal caliber aorta. No abdominal or pelvic lymphadenopathy. Musculoskeletal: No concerning osseous lesion. Simple cystic-appearing ovoid lesion within the left internal obturator muscle measures 3.0 x 3.8 cm. IMPRESSION: 1. Atrophic right kidney. No urinary tract calculi or obstructive uropathy. 2. Findings are in agreement with the preliminary report. Dictated by: Dictated on workstation # [id number]
== END 2019-05-10 01:22 | disposition home or self-care (01) ==
LOC: EDUNIT# 22:56 → ER 22:56
DX: M79.18 Myalgia, other site (principal); M54.5 Low back pain; I48.91 Unspecified atrial fibrillation; I10 Essential (primary) hypertension; E78.00 Pure hypercholesterolemia, unspecified; K21.9 Gastro-esophageal reflux disease without esophagitis; Z79.01 Long term (current) use of anticoagulants; Z87.891 Personal history of nicotine dependence; Z77.22 Contact with and (suspected) exposure to environmental tobacco smoke (acute) (chronic)
CPT/HCPCS: 36415; 74176; 80053; 81000; 85025; 86141; 96361; 96374; 96375

== ENCOUNTER → 2019-09-27 | Outpatient (CLI) | payer MEDICARE, OTHER ==
[~2019-09-27] MED LIST changes: -ACET-2469 PO; +ACET-2715 PO; +CYCL10TA9 PO; +DILT240C92 PO; -DILT240C97 PO; +HYDR-700 PO; +LISI1TAB25 PO; -LISI1TAB8 PO; +OXYC-471 PO
== END ==
LOC: LABNPT 15:17
PROVIDERS: ATTEND Internal Medicine Cardiovascular Disease
DX: Z11.59 Encounter for screening for other viral diseases (principal)
CPT/HCPCS: 87635

== ENCOUNTER → 2019-09-30 | Day surgery (SDC) | payer MEDICARE ==
[~2019-09-30] VITALS: Ht 185 cm; Wt 136.0 kg
[~2019-09-30] MED LIST changes: +HEParin (CATH LAB) 0 ML IV ONE; +HEParin 1000 UNIT/ML (10ML VIAL) FOR BOLUS ONE; +ISOPROTERENOL 0.2 MG/D5W 50 ML IV ONE; +LIDOCAINE 1% INJ 20 ML 20 ML VIAL ONE; +NS IV 1000 ML 0 ML ONE; +NS IV 1000 ML 1,000 ML IV SCH
[2019-09-30 07:27] VITALS: BP 128/98
--- NOTE | 2019-09-30 08:04 | NUR ---
IN ROOM, ANESTHESIA HAS VOICED CONCERN ON NOT HAVING A FU CATHETER IN PLACE. HAS KNOWN STRICTURE WITH DIFFICULTY WITH INSERTION OF FU PREVIOUSLY. PT AND , ANESTHESIA, AND DISCUSSED AT LENGTH RISKS, AND OPTED TO RESCHEDULE AT THIS TIME.
--- OUTSIDE RECORDS SUMMARY | 2019-09-30 08:42 | XMS REPORT | Continuity of Care Document ---
Author Organization Unknown Address Unknown Phone Unavailable Allergies Active Description Code Type Severity Reaction Onset Reported/Identified Relationship to Patient Clinical Status Yes No Known Drug Allergies [id number] Drug Allergy Unknown N/A 08/10/2017 Medications There is no data. Problems Date Dx Coded Attending Type Code Diagnosis Diagnosed By 08/11/2017 ELIDIA BERUMEN MD Ot E66 .9 OBESITY, UNSPECIFIED 08/11/2017 ELIDIA BERUMEN MD Ot F17.210 NICOTINE DEPENDENCE, CIGARETTES, UNCOMPL 08/11/2017 ELIDIA BERUMEN MD Ot I10 ESSENTIAL (PRIMARY) HYPERTENSION 08/11/2017 ELIDIA BERUMEN MD Ot I48.91 UNSPECIFIED ATRIAL FIBRILLATION 08/11/2017 ELIDIA BERUMEN MD Ot J40 BRONCHITIS, NOT SPECIFIED ACUTE OR CH 08/11/2017 ELIDIA BERUMEN MD Ot Z68.39 BODY MASS INDEX (BMI) 39.0-39.9, ADULT 08/11/2017 ELIDIA BERUMEN MD Ot Z79.01 SHELTER (CURRENT) USE OF ANTICOAGULANT 08/27/2017 CANDIS ELLINGTON Ot E78.5 HYPERLIPIDEMIA, UNSPECIFIED 08/27/2017 CANDIS ELLINGTON Ot 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 08/27/2017 CANDIS ELLINGTON Ot I27.20 PULMONARY HYPERTENSION, UNSPECIFIED 08/27/2017 CANDIS ELLINGTON Ot I48.91 UNSPECIFIED ATRIAL FIBRILLATION 09/09/2017 CANDIS ELLINGTON Ot E78.5 HYPERLIPIDEMIA, UNSPECIFIED 09/09/2017 CANDIS ELLINGTON Ot 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83 SNORING 09/17/2017 HOLGUIN-KATERYNA BROWN, CANDIS K Ot Z68.37 BODY MASS INDEX (BMI) 37.0-37.9, ADULT 09/21/2017 HOLGUINRAMOS BROWN CANDIS K Ot E66.9 OBESITY, UNSPECIFIED 09/21/2017 HOLGUIN-KATERYNA BROWN, CANDIS K Ot G47.10 HYPERSOMNIA, UNSPECIFIED 09/21/2017 HOLGUIN-KATERYNA BROWN, CANDIS K Ot G47.33 OBSTRUCTIVE SLEEP APNEA (ADULT) (PEDIATR 09/21/2017 HOLGUIN-KATERYNA BROWN, CANDIS K Ot I10 ESSENTIAL (PRIMARY) HYPERTENSION 09/21/2017 HOLGUIN-KATERYNA BROWN, CANDIS K Ot I48.91 UNSPECIFIED ATRIAL FIBRILLATION 09/21/2017 HOLGUIN-KATERYNA BROWN, CANDIS K Ot R06.83 SNORING 09/21/2017 HOLGUIN-KATERYNA BROWN, CANDIS K Ot Z68.37 BODY MASS INDEX (BMI) 37.0-37.9, ADULT 2017 DOMINIC GRANADOS, GRACIE Partida Ot E66. 9 OBESITY, UNSPECIFIED 2017 DOMINIC GRANADOS, GRACIE Partida Ot E78. 5 HYPERLIPIDEMIA, UNSPECIFIED 2017 GRACIE ALFARO MD Ot G47. 10 HYPERSOMNIA, UNSPECIFIED 2017 GRACIE ALFARO MD Ot I08. 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 0 PAROXYSMAL ATRIAL FIBRILLATION 2017 GRACIE ALFARO MD Ot Z68. 39 BODY MASS INDEX (BMI) 39.0-39.9, ADULT 2017 GRACIE ALFARO MD Ot Z87.891 PERSONAL HISTORY OF NICOTINE DEPENDENCE 10/07/2017 GRACIE ALFARO MD Ot E66. 9 OBESITY, UNSPECIFIED 10/07/2017 GRACIE ALFARO MD Ot E78. 5 HYPERLIPIDEMIA, UNSPECIFIED 10/07/2017 GRACIE ALFARO MD Ot G47. 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 0 PAROXYSMAL ATRIAL FIBRILLATION 10/07/2017 GRACIE ALFARO MD Ot Z68. 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 10/23/2017 CANDIS ELLINGTON Ot I27.20 PULMONARY HYPERTENSION, UNSPECIFIED 10/23/2017 CANDIS ELLINGTON Ot I48.91 UNSPECIFIED ATRIAL FIBRILLATION 12/26/2018 TAM DO GIANNA K Ot E78.00 PURE HYPERCHOLESTEROLEMIA, UNSPECIFIED 12/26/2018 TAM DO GIANNA K Ot E83.42 HYPOMAGNESEMIA 12/26/2018 TAM DO, GIANNA K Ot E86.0 DEHYDRATION 12/26/2018 TAM DO, GIANNA K Ot I12.9 HYPERTENSIVE CHRONIC KIDNEY DISEASE W ST 12/26/2018 TAM DO GIANNA K Ot I48.2 CHRONIC ATRIAL FIBRILLATION 12/26/2018 TAM DO, GIANNA K Ot I48.91 UNSPECIFIED ATRIAL FIBRILLATION 12/26/2018 TAM DO, GIANNA K Ot I95.9 HYPOTENSION, UNSPECIFIED 12/26/2018 TAM DO, GIANNA K Ot K21.9 GASTRO-ESOPHAGEAL REFLUX DISEASE WITHOUT 12/26/2018 TAM DO, GIANNA K Ot N18.9 CHRONIC KIDNEY DISEASE, UNSPECIFIED 12/26/2018 TAM DO, GIANNA K Ot N39.0 URINARY TRACT INFECTION, SITE NOT SPECIF 12/26/2018 TAM DO, GIANNA K Ot Z79.01 PRODUCT MARKETER (CURRENT) USE OF ANTICOAGULANT 12/26/2018 TAM DO, GIANNA K Ot Z87.891 PERSONAL HISTORY OF NICOTINE DEPENDENCE 12/29/2018 TAM DO, GIANNA K Ot E78.00 PURE HYPERCHOLESTEROLEMIA, UNSPECIFIED 12/29/2018 TAM DO, GIANNA K Ot E83.42 HYPOMAGNESEMIA 12/29/2018 TAM DO, GIANNA K Ot E86.0 DEHYDRATION 12/29/2018 TAM DO, GIANNA K Ot I12.9 HYPERTENSIVE CHRONIC KIDNEY DISEASE W ST 12/29/2018 TAM DO, GIANNA K Ot I48.2 CHRONIC ATRIAL FIBRILLATION 12/29/2018 TAM DO, GIANNA K Ot I48.91 UNSPECIFIED ATRIAL FIBRILLATION 12/29/2018 TAM DO, GIANNA K Ot I95.9 HYPOTENSION, UNSPECIFIED 12/29/2018 TAM DO, GIANNA K Ot K21.9 GASTRO-ESOPHAGEAL REFLUX DISEASE WITHOUT 12/29/2018 TAM DO, GIANNA K Ot N18.9 CHRONIC KIDNEY DISEASE, UNSPECIFIED 12/29/2018 TAM DO, GIANNA K Ot N39.0 URINARY TRACT INFECTION, SITE NOT SPECIF 12/29/2018 TAM DO, GIANNA K Ot Z79.01 SHELTER (CURRENT) USE OF ANTICOAGULANT 12/29/2018 TAM DO, GIANNA K Ot Z87.891 PERSONAL HISTORY OF NICOTINE DEPENDENCE 01/01/2019 GRACIE ALFARO MD Ot 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 0 HYPERTENSIVE HEART DISEASE WITH HEART FA 01/01/2019 GRACIE ALFARO MD Ot I25. 10 ATHSCL HEART DISEASE OF [place] CORONARY 01/01/2019 GRACIE ALFARO MD Ot I48. 0 PAROXYSMAL ATRIAL FIBRILLATION 01/01/2019 GRACIE ALFARO MD Ot I50. 9 HEART FAILURE, UNSPECIFIED 01/01/2019 GRACIE ALFARO MD Ot K21. 9 GASTRO-ESOPHAGEAL REFLUX DISEASE WITHOUT 01/05/2019 GRACIE ALFARO MD Ot E66. 9 OBESITY, UNSPECIFIED 01/05/2019 GRACIE ALFARO MD Ot E78. 2 MIXED HYPERLIPIDEMIA 01/05/2019 GRACIE ALFARO MD Ot G47. 00 INSOMNIA, UNSPECIFIED 01/05/2019 GRACIE ALFARO MD Ot G47. 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 20 PULMONARY HYPERTENSION, UNSPECIFIED 01/05/2019 GRACIE ALFARO MD Ot I48. 0 PAROXYSMAL ATRIAL FIBRILLATION 01/05/2019 GRACIE ALFARO MD Ot R00. 2 PALPITATIONS 01/05/2019 GRACIE ALFARO MD Ot R06. 02 SHORTNESS OF BREATH 01/05/2019 GRACIE ALFARO MD Ot R68. 3 CLUBBING OF FINGERS 01/05/2019 GRACIE ALFARO MD Ot Z11. 2 ENCOUNTER FOR SCREENING FOR OTHER BACTER 01/05/2019 GRACIE ALFARO MD Ot Z68. 38 BODY MASS INDEX (BMI) 38.0-38.9, ADULT 01/05/2019 GRACIE ALFARO MD Ot Z79. 01 PRODUCT MARKETER (CURRENT) USE OF ANTICOAGULANT 01/05/2019 GRACIE ALFARO MD Ot Z79.899 OTHER SHELTER (CURRENT) DRUG THERAPY 01/05/2019 GRACIE ALFARO MD Ot Z87.891 PERSONAL HISTORY OF NICOTINE DEPENDENCE 01/06/2019 GRACIE ALFARO MD Ot E66. 9 OBESITY, UNSPECIFIED 01/06/2019 GRACIE ALFARO MD Ot E78. 2 MIXED HYPERLIPIDEMIA 01/06/2019 GRACIE ALFARO MD Ot G47. 00 INSOMNIA, UNSPECIFIED 01/06/2019 GRACIE ALFARO MD Ot G47. 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 20 PULMONARY HYPERTENSION, UNSPECIFIED 01/06/2019 GRACIE ALFARO MD Ot I48. 0 PAROXYSMAL ATRIAL FIBRILLATION 01/06/2019 GRACIE ALFARO MD Ot R00. 2 PALPITATIONS 01/06/2019 GRACIE ALFARO MD Ot R06. 02 SHORTNESS OF BREATH 01/06/2019 GRACIE ALFARO MD Ot R68. 3 CLUBBING OF FINGERS 01/06/2019 GRACIE ALFARO MD Ot Z11. 2 ENCOUNTER FOR SCREENING FOR OTHER BACTER 01/06/2019 GRACIE ALFARO MD Ot Z68. 38 BODY MASS INDEX (BMI) 38.0-38.9, ADULT 01/06/2019 GRACIE ALFARO MD Ot Z79. 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 0 HYPERTENSIVE HEART DISEASE WITH HEART FA 01/07/2019 GRACIE ALFARO MD Ot I25. 10 ATHSCL HEART DISEASE OF [place] CORONARY 01/07/2019 GRACIE ALFARO MD Ot I48. 0 PAROXYSMAL ATRIAL FIBRILLATION 01/07/2019 GRACIE ALFARO MD Ot I50. 9 HEART FAILURE, UNSPECIFIED 01/07/2019 GRACIE ALFARO MD Ot K21. 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 0 HYPERTENSIVE HEART DISEASE WITH HEART FA 01/11/2019 GRACIE ALFARO MD Ot I25. 10 ATHSCL HEART DISEASE OF [place] CORONARY 01/11/2019 GRACIE ALFARO MD Ot I48. 0 PAROXYSMAL ATRIAL FIBRILLATION 01/11/2019 GRACIE ALFARO MD Ot I50. 9 HEART FAILURE, UNSPECIFIED 01/11/2019 GRACIE ALFARO MD Ot K21. 9 GASTRO-ESOPHAGEAL REFLUX DISEASE WITHOUT 01/18/2019 GRACIE ALFARO MD Ot E66. 9 OBESITY, UNSPECIFIED 01/18/2019 GRACIE ALFARO MD Ot E78. 2 MIXED HYPERLIPIDEMIA 01/18/2019 GRACIE ALFARO MD Ot G47. 00 INSOMNIA, UNSPECIFIED 01/18/2019 GRACIE ALFARO MD Ot G47. 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 20 PULMONARY HYPERTENSION, UNSPECIFIED 01/18/2019 GRACIE ALFARO MD Ot I48. 0 PAROXYSMAL ATRIAL FIBRILLATION 01/18/2019 GRACIE ALFARO MD Ot R00. 2 PALPITATIONS 01/18/2019 GRACIE ALFARO MD Ot R06. 02 SHORTNESS OF BREATH 01/18/2019 GRACIE ALFARO MD Ot R68. 3 CLUBBING OF FINGERS 01/18/2019 GRACIE ALFARO MD Ot Z11. 2 ENCOUNTER FOR SCREENING FOR OTHER BACTER 01/18/2019 GRACIE ALFARO MD Ot Z68. 38 BODY MASS INDEX (BMI) 38.0-38.9, ADULT 01/18/2019 GRACIE ALFARO MD Ot Z79. 01 SHELTER (CURRENT) USE OF ANTICOAGULANT 01/18/2019 GRACIE ALFARO MD Ot Z79.899 OTHER PRODUCT MARKETER (CURRENT) DRUG THERAPY 01/18/2019 GRACIE ALFARO MD Ot Z87.891 PERSONAL HISTORY OF NICOTINE DEPENDENCE 01/19/2019 GRACIE ALFARO MD Ot E66. 9 OBESITY, UNSPECIFIED 01/19/2019 GRACIE ALFARO MD Ot E78. 2 MIXED HYPERLIPIDEMIA 01/19/2019 GRACIE ALFARO MD Ot G47. 00 INSOMNIA, UNSPECIFIED 01/19/2019 GRACIE ALFARO MD Ot G47. 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 20 PULMONARY HYPERTENSION, UNSPECIFIED 01/19/2019 GRACIE ALFARO MD Ot I48. 0 PAROXYSMAL ATRIAL FIBRILLATION 01/19/2019 GRACIE ALFARO MD Ot R00. 2 PALPITATIONS 01/19/2019 GRACIE ALFARO MD Ot R06. 02 SHORTNESS OF BREATH 01/19/2019 GRACIE ALFARO MD Ot R68. 3 CLUBBING OF FINGERS 01/19/2019 GRACIE LAFARO MD Ot Z11. 2 ENCOUNTER FOR SCREENING FOR OTHER BACTER 01/19/2019 GRACIE ALFARO MD Ot Z68. 38 BODY MASS INDEX (BMI) 38.0-38.9, ADULT 01/19/2019 GRACIE ALFARO MD Ot Z79. 01 SHELTER (CURRENT) USE OF ANTICOAGULANT 01/19/2019 GRACIE ALFARO MD, Ot Z79.899 OTHER PRODUCT MARKETER (CURRENT) DRUG THERAPY 01/19/2019 GRACIE ALFARO MD, Ot Z87.891 PERSONAL HISTORY OF NICOTINE DEPENDENCE 02/02/2019 GRACIE ALFARO MD Ot G47. 33 OBSTRUCTIVE SLEEP APNEA (ADULT) (PEDIATR 02/03/2019 GRACIE ALFARO MD Ot G47. 33 OBSTRUCTIVE SLEEP APNEA (ADULT) (PEDIATR 02/03/2019 GRACIE ALFARO MD Ot G47. 10 HYPERSOMNIA, UNSPECIFIED 02/03/2019 GRACIE ALFARO MD, Ot G47. 33 OBSTRUCTIVE SLEEP APNEA (ADULT) (PEDIATR 02/03/2019 GRACIE ALFARO MD Ot I10 ESSENTIAL (PRIMARY) HYPERTENSION 02/03/2019 GRACIE ALFARO MD Ot I49. 9 CARDIAC ARRHYTHMIA, UNSPECIFIED 02/23/2019 GRACIE ALFARO MD Ot I65. 29 OCCLUSION AND STENOSIS OF UNSPECIFIED [place] 02/25/2019 GRACIE ALFARO MD Ot I65. 29 OCCLUSION AND STENOSIS OF UNSPECIFIED CA 03/14/2019 GRACIE ALFARO MD Ot I65. 29 OCCLUSION AND STENOSIS OF UNSPECIFIED CA 03/14/2019 GRACIE ALFARO MD Ot I65. 29 OCCLUSION AND STENOSIS OF UNSPECIFIED CA 03/28/2019 Corey WRIGHT MD Ot F17.210 NICOTINE DEPENDENCE, CIGARETTES, UNCOMPL 03/28/2019 Corey WRIGHT MD Ot G47.33 OBSTRUCTIVE SLEEP APNEA (ADULT) (PEDIATR 03/28/2019 Corey WRIGHT MD Ot I10 ESSENTIAL (PRIMARY) HYPERTENSION 03/28/2019 Corey WRIGHT MD Ot I48 .0 PAROXYSMAL ATRIAL FIBRILLATION 03/28/2019 Corey WRIGHT MD Ot N35.911 UNSPECIFIED URETHRAL STRICTURE, MALE, ME 03/28/2019 Corey WRIGHT MD Ot Z79.899 OTHER SHELTER (CURRENT) DRUG THERAPY 03/28/2019 Corey WRIGHT MD Ot Z86.73 PRSNL HX OF TIA (TIA), AND CEREB INFRC W 03/28/2019 Corey WRIGHT MD Ot Z99.89 DEPENDENCE ON OTHER ENABLING MACHINES AN 04/01/2019 Corey WRIGHT MD Ot F17.210 NICOTINE DEPENDENCE, CIGARETTES, UNCOMPL 04/01/2019 Corey WRIGHT MD Ot G47.33 OBSTRUCTIVE SLEEP APNEA (ADULT) (PEDIATR 04/01/2019 Corey WRIGHT MD Ot I10 ESSENTIAL (PRIMARY) HYPERTENSION 04/01/2019 Corey WRIGHT MD Ot I48 .0 PAROXYSMAL ATRIAL FIBRILLATION 04/01/2019 Corey WRIGHT MD Ot N35.911 UNSPECIFIED URETHRAL STRICTURE, MALE, ME 04/01/2019 Corey WRIGHT MD Ot Z79.899 OTHER SHELTER (CURRENT) DRUG THERAPY 04/01/2019 Corey WRIGHT MD Ot Z86.73 PRSNL HX OF TIA (TIA), AND CEREB INFRC W 04/01/2019 Corey WRIGHT MD Ot Z99.89 DEPENDENCE ON OTHER ENABLING MACHINES AN 04/03/2019 Corey WRIGHT MD Ot F17.210 NICOTINE DEPENDENCE, CIGARETTES, UNCOMPL 04/03/2019 Corey WRIGHT MD Ot G47.33 OBSTRUCTIVE SLEEP APNEA (ADULT) (PEDIATR 04/03/2019 Corey WRIGHT MD Ot I10 ESSENTIAL (PRIMARY) HYPERTENSION 04/03/2019 Corey WRIGHT MD Ot I48 .0 PAROXYSMAL ATRIAL FIBRILLATION 04/03/2019 Corey WRIGHT MD Ot N35.911 UNSPECIFIED URETHRAL STRICTURE, MALE, ME 04/03/2019 KYLE GRANADOS, Corey ADAMSON Ot Z79.899 OTHER SHELTER (CURRENT) DRUG THERAPY 04/03/2019 KYLE GRANADOS, Corey ADAMSON Ot Z86.73 PRSNL HX OF TIA (TIA), AND CEREB INFRC W 04/03/2019 KYLE GRANADOS, Corey ADAMSON Ot Z99.89 DEPENDENCE ON OTHER ENABLING MACHINES AN 05/03/2019 SOM ROJAS MD Ot N35.9 19 UNSPECIFIED URETHRAL STRICTURE, MALE, UN 05/10/2019 SOM ROJAS MD Ot N35.9 19 UNSPECIFIED URETHRAL STRICTURE, MALE, UN 05/10/2019 TOM GOETZ MD Ot E78. 00 PURE HYPERCHOLESTEROLEMIA, UNSPECIFIED 05/10/2019 TOM GOETZ MD Ot I10 ESSENTIAL (PRIMARY) HYPERTENSION 05/10/2019 TOM GOETZ MD Ot I48. 91 UNSPECIFIED ATRIAL FIBRILLATION 05/10/2019 TOM GOETZ MD Ot K21. 9 GASTRO-ESOPHAGEAL REFLUX DISEASE WITHOUT 05/10/2019 TOM GOETZ MD Ot M54. 5 LOW BACK PAIN 05/10/2019 TOM GOETZ MD Ot M79. 18 MYALGIA, OTHER SITE 05/10/2019 TOM GOETZ MD Ot Z77. 22 CNTCT W AND EXPSR TO ENVIRON TOBACCO SMO 05/10/2019 TOM GOETZ MD Ot Z79. 01 SHELTER (CURRENT) USE OF ANTICOAGULANT 05/10/2019 TOM GOETZ MD Ot Z87.891 PERSONAL HISTORY OF NICOTINE DEPENDENCE 05/10/2019 SOM ROJAS MD Ot N35.9 19 UNSPECIFIED URETHRAL STRICTURE, MALE, UN 05/10/2019 SOM ROJAS MD Ot N35.9 19 UNSPECIFIED URETHRAL STRICTURE, MALE, UN 05/16/2019 TOM GOETZ MD Ot E78. 00 PURE HYPERCHOLESTEROLEMIA, UNSPECIFIED 05/16/2019 TOM GOETZ MD Ot I10 ESSENTIAL (PRIMARY) HYPERTENSION 05/16/2019 TOM GOETZ MD J Ot I48. 91 UNSPECIFIED ATRIAL FIBRILLATION 05/16/2019 TOM GOETZ MD Ot K21. 9 GASTRO-ESOPHAGEAL REFLUX DISEASE WITHOUT 05/16/2019 TOM GOETZ MD Ot M54. 5 LOW BACK PAIN 05/16/2019 TOM GOETZ MD Ot M79. 18 MYALGIA, OTHER SITE 05/16/2019 TOM GOETZ MD Ot Z77. 22 CNTCT W AND EXPSR TO ENVIRON TOBACCO SMO 05/16/2019 TOM GOETZ MD, Ot Z79. 01 PRODUCT MARKETER (CURRENT) USE OF ANTICOAGULANT 05/16/2019 TOM GOETZ MD, Ot Z87.891 PERSONAL HISTORY OF NICOTINE DEPENDENCE 05/17/2019 OSM ROJAS MD Ot N35.9 19 UNSPECIFIED URETHRAL STRICTURE, MALE, UN 07/26/2019 GRACIE ALFARO MD Ot E66. 9 OBESITY, UNSPECIFIED 07/26/2019 GRACIE ALFARO MD Ot E78. 2 MIXED HYPERLIPIDEMIA 07/26/2019 GRACIE ALFARO MD Ot G47. 00 INSOMNIA, UNSPECIFIED 07/26/2019 GRACIE ALFARO MD Ot G47. 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 20 PULMONARY HYPERTENSION, UNSPECIFIED 07/26/2019 GRACIE ALFARO MD Ot I48. 0 PAROXYSMAL ATRIAL FIBRILLATION 07/26/2019 GRACIE ALFARO MD Ot R00. 2 PALPITATIONS 07/26/2019 GRACIE ALFARO MD Ot R06. 02 SHORTNESS OF BREATH 07/26/2019 GRACIE ALFARO MD Ot R68. 3 CLUBBING OF FINGERS 07/26/2019 GRACIE ALFARO MD Ot Z11. 2 ENCOUNTER FOR SCREENING FOR OTHER BACTER 07/26/2019 GRACIE ALFARO MD Ot Z68. 38 BODY MASS INDEX (BMI) 38.0-38.9, ADULT 07/26/2019 GRACIE ALFARO MD Ot Z79. 01 SHELTER (CURRENT) USE OF ANTICOAGULANT 07/26/2019 GRACIE ALFARO MD Ot Z79.899 OTHER PRODUCT MARKETER (CURRENT) DRUG THERAPY 07/26/2019 GRACIE ALFARO MD Ot Z87.891 PERSONAL HISTORY OF NICOTINE DEPENDENCE 07/26/2019 DOMINIC GRANADOS, GRACIE Partida Ot I65. 29 OCCLUSION AND STENOSIS OF UNSPECIFIED CA 07/26/2019 GRACIE ALFARO MD Ot I65. 29 OCCLUSION AND STENOSIS OF UNSPECIFIED CA 07/26/2019 BOB GRANADOS, SOM Hunter Ot N35.9 19 UNSPECIFIED URETHRAL STRICTURE, MALE, UN Procedures There is no data. Results Test Result Range Complete blood count (CBC) with automate d white blood cell (WBC) differential - 08/10/17 10:10 Blood leukocytes automated count (number/volume) 10.0 10*3/uL 4.3-11.0 Blood erythrocytes automated count (number/volume) 4.35 10*6/uL 4.35-5.85 Venous blood hemoglobin measurement (mass/volume) 13.2 g/dL 13.3-17.7 Blood hematocrit (volume fraction) 40 % 40-54 Automated erythrocyte mean corpuscular volume 92 [ foz_us] 80-99 Automated erythrocyte mean corpuscular h emoglobin (mass per erythrocyte) 30 pg 25-34 Automated erythrocyte mean corpuscular h emoglobin concentration measurement (mass/volume) 33 g/dL 32-36 Automated erythrocyte distribution width ratio 14. 0 % 10.0- 14.5 Automated blood platelet count (count/volume) 209 10*3/uL 130-400 Automated blood platelet mean volume measurement 10.2 [foz_us] 7.4-10.4 Automated blood neutrophils/100 leukocytes 73 % 42-75 Automated blood lymphocytes/100 leukocytes 16 % 12-44 Blood monocytes/100 leukocytes 9 % 0-12 Automated blood eosinophils/100 leukocytes 1 % 0-10 Automated blood basophils/100 leukocytes 0 % 0-10 Blood neutrophils automated count (number/volume) 7.3 10*3 1.8-7.8 Blood lymphocytes automated count (number/volume) 1.6 10*3 1.0-4.0 Blood monocytes automated count (number/volume) 0. 9 10*3 0.0-1.0 Automated eosinophil count 0.1 10*3/uL 0 .0-0.3 Automated blood basophil count (count/volume) 0.0 10*3/uL 0.0-0.1 PT panel in platelet poor plasma by coag ulation assay - 08/10/17 10:10 Prothrombin time (PT) in platelet poor plasma by coagu lation assay 13.5 s 12.2-14.7 INR in platelet poor plasma or blood by coagulation as say 1.0 0.8-1.4 Activated partial thromboplastin time (a PTT) in platelet poor plasma bycoagulation assay - 08/10/17 10:10 Activated partial thromboplastin time (a PTT) in platelet poor plasma bycoagulation assay 38 s 24-35 Comprehensive metabolic panel - 08/10/17 10:10 Serum or plasma sodium measurement (moles/volume) 137 mmol/L 135-145 Serum or plasma potassium measurement (moles/volume) 4.5 mmol/L 3.6-5.0 Serum or plasma chloride measurement (moles/volume) 105 mmol/L 98-107 Carbon dioxide 21 mmol/L 21-32 Serum or plasma anion gap determination (moles/volume) 11 mmol/L 5-14 Serum or plasma urea nitrogen measurement (mass/volume ) 28 mg/dL 7-18 Serum or plasma creatinine measurement (mass/volume) 1.53 mg/dL 0.60-1.30 Serum or plasma urea nitrogen/creatinine mass ratio 18 NRG Serum or plasma creatinine measurement w ith calculation of estimated glomerular filtration rate 46 NRG Serum or plasma glucose measurement (mass/volume) 111 mg/dL 70-105 Serum or plasma calcium measurement (mass/volume) 9.4 mg/dL 8.5-10.1 Serum or plasma total bilirubin measurement (mass/volu me) 1.0 mg/dL 0.1-1.0 Serum or plasma alkaline phosphatase linette surement (enzymatic activity/volume) 82 U/L 40-136 Serum or plasma aspartate aminotransfera se measurement (enzymatic activity/volume) 22 U/L 5-34 Serum or plasma alanine aminotransferase measurement (enzymatic activity/volume) 28 U/L 0-55 Serum or plasma protein measurement (mass/volume) 7.6 g/dL 6.4-8.2 Serum or plasma albumin measurement (mass/volume) 4.3 g/dL 3.2-4.5 Magnesium - 08/10/17 10:10 Magnesium 1.9 mg/dL 1.8-2.4 Serum or plasma troponin i.cardiac measu rement (mass/volume) - 08/10/17 10:10 Serum or plasma troponin i.cardiac measurement (mass/v olume) < ng/mL <0.30 Myoglobin, serum - 08/10/17 10:10 Myoglobin, serum 170.0 ng/mL 10.0-92.0 Automated blood complete blood count (he mogram) panel - 08/11/17 03:05 Blood leukocytes automated count (number/volume) 11.5 10*3/uL 4.3-11.0 Blood erythrocytes automated count (number/volume) 4.01 10*6/uL 4.35-5.85 Venous blood hemoglobin measurement (mass/volume) 12.3 g/dL 13.3-17.7 Blood hematocrit (volume fraction) 37 % 40-54 Automated erythrocyte mean corpuscular volume 93 [ foz_us] 80-99 Automated erythrocyte mean corpuscular h emoglobin (mass per erythrocyte) 31 pg 25-34 Automated erythrocyte mean corpuscular h emoglobin concentration measurement (mass/volume) 33 g/dL 32-36 Automated erythrocyte distribution width ratio 14. 0 % 10.0- 14.5 Automated blood platelet count (count/volume) 185 10*3/uL 130-400 Automated blood platelet mean volume measurement 10.3 [foz_us] 7.4-10.4 Comprehensive metabolic panel - 08/11/17 03:05 Serum or plasma sodium measurement (moles/volume) 138 mmol/L 135-145 Serum or plasma potassium measurement (moles/volume) 4.8 mmol/L 3.6-5.0 Serum or plasma chloride measurement (moles/volume) 108 mmol/L 98-107 Carbon dioxide 21 mmol/L 21-32 Serum or plasma anion gap determination (moles/volume) 9 mmol/L 5-14 Serum or plasma urea nitrogen measurement (mass/volume ) 30 mg/dL 7-18 Serum or plasma creatinine measurement (mass/volume) 1.47 mg/dL 0.60-1.30 Serum or plasma urea nitrogen/creatinine mass ratio 20 NRG Serum or plasma creatinine measurement w ith calculation of estimated glomerular filtration rate 48 NRG Serum or plasma glucose measurement (mass/volume) 106 mg/dL 70-105 Serum or plasma calcium measurement (mass/volume) 8.9 mg/dL 8.5-10.1 Serum or plasma total bilirubin measurement (mass/volu me) 0.6 mg/dL 0.1-1.0 Serum or plasma alkaline phosphatase linette surement (enzymatic activity/volume) 68 U/L 40-136 Serum or plasma aspartate aminotransfera se measurement (enzymatic activity/volume) 22 U/L 5-34 Serum or plasma alanine aminotransferase measurement (enzymatic activity/volume) 23 U/L 0-55 Serum or plasma protein measurement (mass/volume) 7.1 g/dL 6.4-8.2 Serum or plasma albumin measurement (mass/volume) 4.0 g/dL 3.2-4.5 Serum or plasma troponin i.cardiac measu rement (mass/volume) - 08/11/17 03:05 Serum or plasma troponin i.cardiac measurement (mass/v olume) < ng/mL <0.30 Lipid 1996 panel - 08/11/17 03:05 Serum or plasma triglyceride measurement (mass/volume) 85 mg/dL <150 Serum or plasma cholesterol measurement (mass/volume) 205 mg/dL < 200 Serum or plasma cholesterol in HDL measurement (mass/v olume) 37 mg/dL 40-60 Cholesterol in LDL [mass/volume] in serum or plasma by direct assay 151 mg/dL 1-129 Serum or plasma cholesterol in VLDL measurement (mass/ volume) 17 mg/dL 5-40 THYROID STIMULATING HORMONE - 08/11/17 0 3:05 THYROID STIMULATING HORMONE 1.13 u[iU]/mL 0.35-4.94 Complete urinalysis with reflex to cultu re - 10/05/17 07:40 Urine color determination YELLOW NRG Urine clarity determination CLEAR NR G Urine pH measurement by test strip 5 5-9 Specific gravity of urine by test strip 1.020 1.016-1.022 Urine protein assay by test strip, semi-quantitative NEGATIVE NEGATIVE Urine glucose detection by automated test strip NE GATIVE NEGATIVE Erythrocytes detection in urine sediment by light micr oscopy 3+ NEGATIVE Urine ketones detection by automated test strip NE GATIVE NEGATIVE Urine nitrite detection by test strip NEGATIVE NEGATIVE Urine total bilirubin detection by test strip NEGA TIVE NEGATIVE Urine urobilinogen measurement by automated test strip (mass/volume) NORMAL NORMAL Urine leukocyte esterase detection by dipstick 2+ NEGATIVE Automated urine sediment erythrocyte cou nt by microscopy (number/high power field) [HPF] NRG Automated urine sediment leukocyte count by microscopy (number/high power field) [HPF] NRG Bacteria detection in urine sediment by light microsco py TRACE NRG Squamous epithelial cells detection in u rine sediment by light microscopy 5-10 NRG Crystals detection in urine sediment by light microsco py NONE NRG Casts detection in urine sediment by light microscopy NONE NRG Mucus detection in urine sediment by light microscopy NEGATIVE NRG Complete urinalysis with reflex to culture YES NRG Bacterial urine culture - 10/05/17 07:40 Bacterial urine culture SEE COMMEN NRG COLONY COUNT . NRG FTX;REPORTABLE 60,000 CFU/ML NRG Automated blood complete blood count (he mogram) panel - 10/05/17 07:50 Blood leukocytes automated count (number/volume) 7.9 10*3/uL 4.3-11.0 Blood erythrocytes automated count (number/volume) 4.82 10*6/uL 4.35-5.85 Venous blood hemoglobin measurement (mass/volume) 14.8 g/dL 13.3-17.7 Blood hematocrit (volume fraction) 43 % 40-54 Automated erythrocyte mean corpuscular volume 89 [ foz_us] 80-99 Automated erythrocyte mean corpuscular h emoglobin (mass per erythrocyte) 31 pg 25-34 Automated erythrocyte mean corpuscular h emoglobin concentration measurement (mass/volume) 35 g/dL 32-36 Automated erythrocyte distribution width ratio 13. 9 % 10.0- 14.5 Automated blood platelet count (count/volume) 163 10*3/uL 130-400 Automated blood platelet mean volume measurement 10.2 [foz_us] 7.4-10.4 PT panel in platelet poor plasma by coag ulation assay - 10/05/17 07:50 Prothrombin time (PT) in platelet poor plasma by coagu lation assay 14.3 s 12.2-14.7 INR in platelet poor plasma or blood by coagulation as say 1.1 0.8-1.4 Activated partial thromboplastin time (a PTT) in platelet poor plasma bycoagulation assay - 10/05/17 07:50 Activated partial thromboplastin time (a PTT) in platelet poor plasma bycoagulation assay 50 s 24-35 Comprehensive metabolic panel - 10/05/17 07:50 Serum or plasma sodium measurement (moles/volume) 138 mmol/L 135-145 Serum or plasma potassium measurement (moles/volume) 4.4 mmol/L 3.6-5.0 Serum or plasma chloride measurement (moles/volume) 107 mmol/L 98-107 Carbon dioxide 23 mmol/L 21-32 Serum or plasma anion gap determination (moles/volume) 8 mmol/L 5-14 Serum or plasma urea nitrogen measurement (mass/volume ) 24 mg/dL 7-18 Serum or plasma creatinine measurement (mass/volume) 1.61 mg/dL 0.60-1.30 Serum or plasma urea nitrogen/creatinine mass ratio 15 NRG Serum or plasma creatinine measurement w ith calculation of estimated glomerular filtration rate 43 NRG Serum or plasma glucose measurement (mass/volume) 113 mg/dL 70-105 Serum or plasma calcium measurement (mass/volume) 9.0 mg/dL 8.5-10.1 Serum or plasma total bilirubin measurement (mass/volu me) 0.5 mg/dL 0.1-1.0 Serum or plasma alkaline phosphatase linette surement (enzymatic activity/volume) 84 U/L 40-136 Serum or plasma aspartate aminotransfera se measurement (enzymatic activity/volume) 19 U/L 5-34 Serum or plasma alanine aminotransferase measurement (enzymatic activity/volume) 19 U/L 0-55 Serum or plasma protein measurement (mass/volume) 7.3 g/dL 6.4-8.2 Serum or plasma albumin measurement (mass/volume) 4.0 g/dL 3.2-4.5 Lipid 1996 panel - 10/05/17 07:50 Serum or plasma triglyceride measurement (mass/volume) 99 mg/dL <150 Serum or plasma cholesterol measurement (mass/volume) 216 mg/dL < 200 Serum or plasma cholesterol in HDL measurement (mass/v olume) 41 mg/dL 40-60 Cholesterol in LDL [mass/volume] in serum or plasma by direct assay 161 mg/dL 1-129 Serum or plasma cholesterol in VLDL measurement (mass/ volume) 20 mg/dL 5-40 Methicillin resistant Staphylococcus aur eus (MRSA) screening culture - 10/05/17 07:50 Methicillin resistant Staphylococcus aureus (MRSA) scr eening culture NEG NRG Complete blood count (CBC) with automate d white blood cell (WBC) differential - 12/26/18 10:55 Blood leukocytes automated count (number/volume) 7.3 10*3/uL 4.3-11.0 Blood erythrocytes automated count (number/volume) 5.06 10*6/uL 4.35-5.85 Venous blood hemoglobin measurement (mass/volume) 15.1 g/dL 13.3-17.7 Blood hematocrit (volume fraction) 45 % 40-54 Automated erythrocyte mean corpuscular volume 89 [ foz_us] 80-99 Automated erythrocyte mean corpuscular h emoglobin (mass per erythrocyte) 30 pg 25-34 Automated erythrocyte mean corpuscular h emoglobin concentration measurement (mass/volume) 34 g/dL 32-36 Automated erythrocyte distribution width ratio 14. 1 % 10.0- 14.5 Automated blood platelet count (count/volume) 159 10*3/uL 130-400 Automated blood platelet mean volume measurement 10.0 [foz_us] 7.4-10.4 Automated blood neutrophils/100 leukocytes 71 % 42-75 Automated blood lymphocytes/100 leukocytes 16 % 12-44 Blood monocytes/100 leukocytes 12 % 0-12 Automated blood eosinophils/100 leukocytes 1 % 0-10 Automated blood basophils/100 leukocytes 0 % 0-10 Blood neutrophils automated count (number/volume) 5.2 10*3 1.8-7.8 Blood lymphocytes automated count (number/volume) 1.2 10*3 1.0-4.0 Blood monocytes automated count (number/volume) 0. 8 10*3 0.0-1.0 Automated eosinophil count 0.1 10*3/uL 0 .0-0.3 Automated blood basophil count (count/volume) 0.0 10*3/uL 0.0-0.1 Comprehensive metabolic panel - 12/26/18 10:55 Serum or plasma sodium measurement (moles/volume) 141 mmol/L 135-145 Serum or plasma potassium measurement (moles/volume) 4.3 mmol/L 3.6-5.0 Serum or plasma chloride measurement (moles/volume) 104 mmol/L 98-107 Carbon dioxide 23 mmol/L 21-32 Serum or plasma anion gap determination (moles/volume) 14 mmol/L 5-14 Serum or plasma urea nitrogen measurement (mass/volume ) 32 mg/dL 7-18 Serum or plasma creatinine measurement (mass/volume) 2.14 mg/dL 0.60-1.30 Serum or plasma urea nitrogen/creatinine mass ratio 15 NRG Serum or plasma creatinine measurement w ith calculation of estimated glomerular filtration rate 31 NRG Serum or plasma glucose measurement (mass/volume) 114 mg/dL 70-105 Serum or plasma calcium measurement (mass/volume) 9.1 mg/dL 8.5-10.1 Serum or plasma total bilirubin measurement (mass/volu me) 0.5 mg/dL 0.1-1.0 Serum or plasma alkaline phosphatase linette surement (enzymatic activity/volume) 84 U/L 40-136 Serum or plasma aspartate aminotransfera se measurement (enzymatic activity/volume) 14 U/L 5-34 Serum or plasma alanine aminotransferase measurement (enzymatic activity/volume) 13 U/L 0-55 Serum or plasma protein measurement (mass/volume) 7.3 g/dL 6.4-8.2 Serum or plasma albumin measurement (mass/volume) 4.0 g/dL 3.2-4.5 CALCIUM CORRECTED 9.1 mg/dL 8.5-10.1 Magnesium - 12/26/18 10:55 Magnesium 1.4 mg/dL 1.6-2.4 Serum or plasma creatine kinase measurem ent (enzymatic activity/volume) - 12/26/18 10:55 Serum or plasma creatine kinase measurem ent (enzymatic activity/volume) 99 U/L 30-200 Serum or plasma lithium measurement (mol es/volume) - 12/26/18 10:55 BNP PT 302.0 pg/mL <100.0 Serum or plasma creatine kinase MB measu rement (enzymatic activity/volume) - 12/26/18 10:55 Serum or plasma creatine kinase MB measu rement (enzymatic activity/volume) 2.7 ng/mL <6.6 Serum or plasma troponin i.cardiac measu rement (mass/volume) - 12/26/18 10:55 Serum or plasma troponin i.cardiac measurement (mass/v olume) < ng/mL <0.028 Myoglobin, serum - 12/26/18 10:55 Myoglobin, serum 74.0 ng/mL 10.0-92.0 Serum or plasma thyrotropin measurement by detection limit <=0.05 miu/l (units/volume) - 12/26/18 10:55 Serum or plasma thyrotropin measurement by detection limit <=0.05 miu/l (units/volume) 3.16 u[iU]/mL 0.35-4.94 PT panel in platelet poor plasma by coag ulation assay - 08/25/19 10:55 Prothrombin time (PT) in platelet poor plasma by coagu lation assay 14.1 s 12.2-14.7 INR in platelet poor plasma or blood by coagulation as say 1.1 0.8-1.4 Activated partial thromboplastin time (a PTT) in platelet poor plasma bycoagulation assay - 12/26/18 10:55 Activated partial thromboplastin time (a PTT) in platelet poor plasma bycoagulation assay 39 s 24-35 Complete urinalysis with reflex to cultu re - 12/26/18 11:26 Urine color determination YELLOW NRG Urine clarity determination SLIGHTLY CLOUDY NRG Urine pH measurement by test strip 5 5-9 Specific gravity of urine by test strip 1.020 1.016-1.022 Urine protein assay by test strip, semi-quantitative 2+ NEGATIVE Urine glucose detection by automated test strip NE GATIVE NEGATIVE Erythrocytes detection in urine sediment by light micr oscopy 1+ NEGATIVE Urine ketones detection by automated test strip 1+ NEGATIVE Urine nitrite detection by test strip NEGATIVE NEGATIVE Urine total bilirubin detection by test strip 1+ NEGATIVE Urine urobilinogen measurement by automated test strip (mass/volume) 1 mg/dL NORMAL Urine leukocyte esterase detection by dipstick 2+ NEGATIVE Automated urine sediment erythrocyte cou nt by microscopy (number/high power field) NONE NRG Automated urine sediment leukocyte count by microscopy (number/high power field) [HPF] NRG Bacteria detection in urine sediment by light microsco py MODERATE NRG Squamous epithelial cells detection in u rine sediment by light microscopy 5-10 NRG Crystals detection in urine sediment by light microsco py NONE NRG Casts detection in urine sediment by light microscopy NONE NRG Mucus detection in urine sediment by light microscopy NEGATIVE NRG Complete urinalysis with reflex to culture YES NRG Bacterial urine culture - 12/26/18 11:26 Bacterial urine culture [id number] NRG COLONY COUNT >100,000/ML NRG FTX;REPORTABLE NO SUSCEPTIBILITY PERFORMED NRG Whole blood basic metabolic panel - 12/03 09/19 13:17 Serum or plasma sodium measurement (moles/volume) 140 mmol/L 135-145 Serum or plasma potassium measurement (moles/volume) 4.6 mmol/L 3.6-5.0 Serum or plasma chloride measurement (moles/volume) 106 mmol/L 98-107 Carbon dioxide 21 mmol/L 21-32 Serum or plasma anion gap determination (moles/volume) 13 mmol/L 5-14 Serum or plasma urea nitrogen measurement (mass/volume ) 33 mg/dL 7-18 Serum or plasma creatinine measurement (mass/volume) 2.05 mg/dL 0.60-1.30 Serum or plasma urea nitrogen/creatinine mass ratio 16 NRG Serum or plasma creatinine measurement w ith calculation of estimated glomerular filtration rate 33 NRG Serum or plasma glucose measurement (mass/volume) 112 mg/dL 70-105 Serum or plasma calcium measurement (mass/volume) 9.0 mg/dL 8.5-10.1 Serum or plasma troponin i.cardiac measu rement (mass/volume) - 12/26/18 13:17 Serum or plasma troponin i.cardiac measurement (mass/v olume) < ng/mL <0.028 Automated blood complete blood count (he mogram) panel - 12/31/18 10:44 Blood leukocytes automated count (number/volume) 7.4 10*3/uL 4.3-11.0 Blood erythrocytes automated count (number/volume) 5.07 10*6/uL 4.35-5.85 Venous blood hemoglobin measurement (mass/volume) 15.4 g/dL 13.3-17.7 Blood hematocrit (volume fraction) 45 % 40-54 Automated erythrocyte mean corpuscular volume 90 [ foz_us] 80-99 Automated erythrocyte mean corpuscular h emoglobin (mass per erythrocyte) 30 pg 25-34 Automated erythrocyte mean corpuscular h emoglobin concentration measurement (mass/volume) 34 g/dL 32-36 Automated erythrocyte distribution width ratio 14. 0 % 10.0- 14.5 Automated blood platelet count (count/volume) 146 10*3/uL 130-400 Automated blood platelet mean volume measurement 10.3 [foz_us] 7.4-10.4 PT panel in platelet poor plasma by coag ulation assay - 12/31/18 10:44 Prothrombin time (PT) in platelet poor plasma by coagu lation assay 14.7 s 12.2-14.7 INR in platelet poor plasma or blood by coagulation as say 1.1 0.8-1.4 Activated partial thromboplastin time (a PTT) in platelet poor plasma bycoagulation assay - 12/31/18 10:44 Activated partial thromboplastin time (a PTT) in platelet poor plasma bycoagulation assay 42 s 24-35 Comprehensive metabolic panel - 12/31/18 10:44 Serum or plasma sodium measurement (moles/volume) 137 mmol/L 135-145 Serum or plasma potassium measurement (moles/volume) 4.3 mmol/L 3.6-5.0 Serum or plasma chloride measurement (moles/volume) 102 mmol/L 98-107 Carbon dioxide 22 mmol/L 21-32 Serum or plasma anion gap determination (moles/volume) 13 mmol/L 5-14 Serum or plasma urea nitrogen measurement (mass/volume ) 23 mg/dL 7-18 Serum or plasma creatinine measurement (mass/volume) 1.73 mg/dL 0.60-1.30 Serum or plasma urea nitrogen/creatinine mass ratio 13 NRG Serum or plasma creatinine measurement w ith calculation of estimated glomerular filtration rate 40 NRG Serum or plasma glucose measurement (mass/volume) 91 mg/dL 70-105 Serum or plasma calcium measurement (mass/volume) 9.6 mg/dL 8.5-10.1 Serum or plasma total bilirubin measurement (mass/volu me) 0.7 mg/dL 0.1-1.0 Serum or plasma alkaline phosphatase linette surement (enzymatic activity/volume) 77 U/L 40-136 Serum or plasma aspartate aminotransfera se measurement (enzymatic activity/volume) 17 U/L 5-34 Serum or plasma alanine aminotransferase measurement (enzymatic activity/volume) 15 U/L 0-55 Serum or plasma protein measurement (mass/volume) 7.4 g/dL 6.4-8.2 Serum or plasma albumin measurement (mass/volume) 4.2 g/dL 3.2-4.5 CALCIUM CORRECTED 9.4 mg/dL 8.5-10.1 Methicillin resistant Staphylococcus aur eus (MRSA) screening culture - 12/31/18 10:44 Methicillin resistant Staphylococcus aureus (MRSA) scr eening culture NEG NRG Complete blood count (CBC) with automate d white blood cell (WBC) differential - 01/01/19 01:25 Blood leukocytes automated count (number/volume) 8.4 10*3/uL 4.3-11.0 Blood erythrocytes automated count (number/volume) 4.90 10*6/uL 4.35-5.85 Venous blood hemoglobin measurement (mass/volume) 14.6 g/dL 13.3-17.7 Blood hematocrit (volume fraction) 45 % 40-54 Automated erythrocyte mean corpuscular volume 91 [ foz_us] 80-99 Automated erythrocyte mean corpuscular h emoglobin (mass per erythrocyte) 30 pg 25-34 Automated erythrocyte mean corpuscular h emoglobin concentration measurement (mass/volume) 33 g/dL 32-36 Automated erythrocyte distribution width ratio 14. 3 % 10.0- 14.5 Automated blood platelet count (count/volume) 145 10*3/uL 130-400 Automated blood platelet mean volume measurement 10.5 [foz_us] 7.4-10.4 Automated blood neutrophils/100 leukocytes 57 % 42-75 Automated blood lymphocytes/100 leukocytes 28 % 12-44 Blood monocytes/100 leukocytes 13 % 0-12 Automated blood eosinophils/100 leukocytes 2 % 0-10 Automated blood basophils/100 leukocytes 0 % 0-10 Blood neutrophils automated count (number/volume) 4.8 10*3 1.8-7.8 Blood lymphocytes automated count (number/volume) 2.3 10*3 1.0-4.0 Blood monocytes automated count (number/volume) 1. 1 10*3 0.0-1.0 Automated eosinophil count 0.2 10*3/uL 0 .0-0.3 Automated blood basophil count (count/volume) 0.0 10*3/uL 0.0-0.1 Comprehensive metabolic panel - 01/01/19 01:25 Serum or plasma sodium measurement (moles/volume) 139 mmol/L 135-145 Serum or plasma potassium measurement (moles/volume) 4.8 mmol/L 3.6-5.0 Serum or plasma chloride measurement (moles/volume) 106 mmol/L 98-107 Carbon dioxide 23 mmol/L 21-32 Serum or plasma anion gap determination (moles/volume) 10 mmol/L 5-14 Serum or plasma urea nitrogen measurement (mass/volume ) 28 mg/dL 7-18 Serum or plasma creatinine measurement (mass/volume) 1.91 mg/dL 0.60-1.30 Serum or plasma urea nitrogen/creatinine mass ratio 15 NRG Serum or plasma creatinine measurement w ith calculation of estimated glomerular filtration rate 36 NRG Serum or plasma glucose measurement (mass/volume) 115 mg/dL 70-105 Serum or plasma calcium measurement (mass/volume) 8.8 mg/dL 8.5-10.1 Serum or plasma total bilirubin measurement (mass/volu me) 0.4 mg/dL 0.1-1.0 Serum or plasma alkaline phosphatase linette surement (enzymatic activity/volume) 89 U/L 40-136 Serum or plasma aspartate aminotransfera se measurement (enzymatic activity/volume) 25 U/L 5-34 Serum or plasma alanine aminotransferase measurement (enzymatic activity/volume) 18 U/L 0-55 Serum or plasma protein measurement (mass/volume) 7.5 g/dL 6.4-8.2 Serum or plasma albumin measurement (mass/volume) 4.0 g/dL 3.2-4.5 CALCIUM CORRECTED 8.8 mg/dL 8.5-10.1 Magnesium - 01/01/19 01:25 Magnesium 1.5 mg/dL 1.6-2.4 Serum or plasma troponin i.cardiac measu rement (mass/volume) - 01/01/19 01:25 Serum or plasma troponin i.cardiac measurement (mass/v olume) < ng/mL <0.028 Myoglobin, serum - 01/01/19 01:25 Myoglobin, serum 88.2 ng/mL 10.0-92.0 Serum or plasma lithium measurement (mol es/volume) - 01/01/19 01:25 BNP PT 133.2 pg/mL <100.0 PT panel in platelet poor plasma by coag ulation assay - 01/01/19 01:57 Prothrombin time (PT) in platelet poor plasma by coagu lation assay 13.7 s 12.2-14.7 INR in platelet poor plasma or blood by coagulation as say 1.0 0.8-1.4 Activated partial thromboplastin time (a PTT) in platelet poor plasma bycoagulation assay - 01/01/19 01:57 Activated partial thromboplastin time (a PTT) in platelet poor plasma bycoagulation assay 41 s 24-35 Serum or plasma troponin i.cardiac measu rement (mass/volume) - 01/01/19 05:16 Serum or plasma troponin i.cardiac measurement (mass/v olume) < ng/mL <0.028 [id number] - 02/03/19 13:17 Serum or plasma urea nitrogen measurement (mass/volume ) 24 mg/dL 7-18 Serum or plasma creatinine measurement (mass/volume) 1.74 mg/dL 0.60-1.30 Serum or plasma urea nitrogen/creatinine mass ratio 14 NRG Serum or plasma creatinine measurement w ith calculation of estimated glomerular filtration rate 40 NRG Automated blood complete blood count (he mogram) panel - 03/28/19 07:07 Blood leukocytes automated count (number/volume) 9.0 10*3/uL 4.3-11.0 Blood erythrocytes automated count (number/volume) 4.89 10*6/uL 4.35-5.85 Venous blood hemoglobin measurement (mass/volume) 14.8 g/dL 13.3-17.7 Blood hematocrit (volume fraction) 45 % 40-54 Automated erythrocyte mean corpuscular volume 93 [ foz_us] 80-99 Automated erythrocyte mean corpuscular h emoglobin (mass per erythrocyte) 30 pg 25-34 Automated erythrocyte mean corpuscular h emoglobin concentration measurement (mass/volume) 33 g/dL 32-36 Automated erythrocyte distribution width ratio 14. 0 % 10.0- 14.5 Automated blood platelet count (count/volume) 160 10*3/uL 130-400 Automated blood platelet mean volume measurement 9.9 [foz_us] 7.4-10.4 PT panel in platelet poor plasma by coag ulation assay - 03/28/19 07:07 Prothrombin time (PT) in platelet poor plasma by coagu lation assay 13.7 s 12.2-14.7 INR in platelet poor plasma or blood by coagulation as say 1.0 0.8-1.4 Activated partial thromboplastin time (a PTT) in platelet poor plasma bycoagulation assay - 03/28/19 07:07 Activated partial thromboplastin time (a PTT) in platelet poor plasma bycoagulation assay 42 s 24-35 Comprehensive metabolic panel - 03/28/19 07:07 Serum or plasma sodium measurement (moles/volume) 141 mmol/L 135-145 Serum or plasma potassium measurement (moles/volume) 4.1 mmol/L 3.6-5.0 Serum or plasma chloride measurement (moles/volume) 107 mmol/L 98-107 Carbon dioxide 22 mmol/L 21-32 Serum or plasma anion gap determination (moles/volume) 12 mmol/L 5-14 Serum or plasma urea nitrogen measurement (mass/volume ) 25 mg/dL 7-18 Serum or plasma creatinine measurement (mass/volume) 1.70 mg/dL 0.60-1.30 Serum or plasma urea nitrogen/creatinine mass ratio 15 NRG Serum or plasma creatinine measurement w ith calculation of estimated glomerular filtration rate 41 NRG Serum or plasma glucose measurement (mass/volume) 125 mg/dL 70-105 Serum or plasma calcium measurement (mass/volume) 8.8 mg/dL 8.5-10.1 Serum or plasma total bilirubin measurement (mass/volu me) 0.6 mg/dL 0.1-1.0 Serum or plasma alkaline phosphatase linette surement (enzymatic activity/volume) 88 U/L 40-136 Serum or plasma aspartate aminotransfera se measurement (enzymatic activity/volume) 20 U/L 5-34 Serum or plasma alanine aminotransferase measurement (enzymatic activity/volume) 27 U/L 0-55 Serum or plasma protein measurement (mass/volume) 8.0 g/dL 6.4-8.2 Serum or plasma albumin measurement (mass/volume) 4.4 g/dL 3.2-4.5 CALCIUM CORRECTED 8.5 mg/dL 8.5-10.1 Methicillin resistant Staphylococcus aur eus (MRSA) screening culture - 03/28/19 07:07 Methicillin resistant Staphylococcus aureus (MRSA) scr eening culture NEG NRG Complete blood count (CBC) with automate d white blood cell (WBC) differential - 05/09/19 23:25 Blood leukocytes automated count (number/volume) 7.5 10*3/uL 4.3-11.0 Blood erythrocytes automated count (number/volume) 4.64 10*6/uL 4.35-5.85 Venous blood hemoglobin measurement (mass/volume) 14.4 g/dL 13.3-17.7 Blood hematocrit (volume fraction) 42 % 40-54 Automated erythrocyte mean corpuscular volume 91 [ foz_us] 80-99 Automated erythrocyte mean corpuscular h emoglobin (mass per erythrocyte) 31 pg 25-34 Automated erythrocyte mean corpuscular h emoglobin concentration measurement (mass/volume) 34 g/dL 32-36 Automated erythrocyte distribution width ratio 13. 6 % 10.0- 14.5 Automated blood platelet count (count/volume) 141 10*3/uL 130-400 Automated blood platelet mean volume measurement 10.6 [foz_us] 7.4-10.4 Automated blood neutrophils/100 leukocytes 62 % 42-75 Automated blood lymphocytes/100 leukocytes 22 % 12-44 Blood monocytes/100 leukocytes 13 % 0-12 Automated blood eosinophils/100 leukocytes 3 % 0-10 Automated blood basophils/100 leukocytes 0 % 0-10 Blood neutrophils automated count (number/volume) 4.7 10*3 1.8-7.8 Blood lymphocytes automated count (number/volume) 1.7 10*3 1.0-4.0 Blood monocytes automated count (number/volume) 1. 0 10*3 0.0-1.0 Automated eosinophil count 0.2 10*3/uL 0 .0-0.3 Automated blood basophil count (count/volume) 0.0 10*3/uL 0.0-0.1 Comprehensive metabolic panel - 05/09/19 23:25 Serum or plasma sodium measurement (moles/volume) 138 mmol/L 135-145 Serum or plasma potassium measurement (moles/volume) 4.0 mmol/L 3.6-5.0 Serum or plasma chloride measurement (moles/volume) 106 mmol/L 98-107 Carbon dioxide 21 mmol/L 21-32 Serum or plasma anion gap determination (moles/volume) 11 mmol/L 5-14 Serum or plasma urea nitrogen measurement (mass/volume ) 24 mg/dL 7-18 Serum or plasma creatinine measurement (mass/volume) 1.57 mg/dL 0.60-1.30 Serum or plasma urea nitrogen/creatinine mass ratio 15 NRG Serum or plasma creatinine measurement w ith calculation of estimated glomerular filtration rate 45 NRG Serum or plasma glucose measurement (mass/volume) 120 mg/dL 70-105 Serum or plasma calcium measurement (mass/volume) 8.7 mg/dL 8.5-10.1 Serum or plasma total bilirubin measurement (mass/volu me) 0.4 mg/dL 0.1-1.0 Serum or plasma alkaline phosphatase linette surement (enzymatic activity/volume) 87 U/L 40-136 Serum or plasma aspartate aminotransfera se measurement (enzymatic activity/volume) 18 U/L 5-34 Serum or plasma alanine aminotransferase measurement (enzymatic activity/volume) 18 U/L 0-55 Serum or plasma protein measurement (mass/volume) 7.2 g/dL 6.4-8.2 Serum or plasma albumin measurement (mass/volume) 4.2 g/dL 3.2-4.5 CALCIUM CORRECTED 8.5 mg/dL 8.5-10.1 Serum or plasma C reactive protein measu rement (mass/volume) - 05/09/19 23:25 Serum or plasma C reactive protein measurement (mass/v olume) 0.43 mg/dL 0.00-0.50 Complete urinalysis with reflex to cultu re - 05/10/19 00:15 Urine color determination YELLOW NRG Urine clarity determination CLEAR NR G Urine pH measurement by test strip 5.5 5-9 Specific gravity of urine by test strip >= 1.016-1.022 Urine protein assay by test strip, semi-quantitative NEGATIVE NEGATIVE Urine glucose detection by automated test strip NE GATIVE NEGATIVE Erythrocytes detection in urine sediment by light micr oscopy TRACE-I NEGATIVE Urine ketones detection by automated test strip NE GATIVE NEGATIVE Urine nitrite detection by test strip NEGATIVE NEGATIVE Urine total bilirubin detection by test strip NEGA TIVE NEGATIVE Urine urobilinogen measurement by automated test strip (mass/volume) 0.2 mg/dL < = 1.0 Urine leukocyte esterase detection by dipstick NEG ATIVE NEGATIVE Automated urine sediment erythrocyte cou nt by microscopy (number/high power field) RARE NRG Automated urine sediment leukocyte count by microscopy (number/high power field) NONE NRG Bacteria detection in urine sediment by light microsco py TRACE NRG Squamous epithelial cells detection in u rine sediment by light microscopy RARE NRG Crystals detection in urine sediment by light microsco py NONE NRG Casts detection in urine sediment by light microscopy NONE NRG Mucus detection in urine sediment by light microscopy NEGATIVE NRG Complete urinalysis with reflex to culture NO NRG Encounters ACCT No. Visit Date/Time Discharge Status Pt. Type Provider Facility Loc./Unit Complaint [id number] 07/28/2019 08:00:00 23:59:59 CLS Preadmit Corey WRIGHT MD [facility] CATH PERSISTENT AF [id number] 05/09/2019 22:56:00 01:22:00 DIS Emergency TOM GOETZ MD [facility] ER R SIDE LOWER BACK PAIN [id number] 04/13/2019 08:54:00 23:59:59 CLS Outpatient SOM ROJAS MD [facility] RAD URETERAL STRUCTURE [id number] 03/28/2019 06:49:00 11:48:00 DIS Outpatient Corey WRIGHT MD [facility] CATH PAF [id number] 02/03/2019 12:08:00 23:59:59 CLS Outpatient GRACIE ALFARO MD [facility] RAD CAROTID STENOSIS [id number] 02/03/2019 12:12:00 13:15:00 DIS Outpatient GRACIE ALFARO MD [facility] SLEEP TONIE G47.33 [id number] 01/27/2019 10:27:00 23:59:59 CLS Outpatient GRACIE ALFARO MD [facility] RAD CAROTID STENOSIS [id number] 01/01/2019 04:28:00 13:35:00 DIS Outpatient GRACIE ALFARO MD [facility] CATH ACUTE HEART FAILURE [id number] 12/31/2018 10:17:00 23:59:59 CLS Outpatient GRACIE ALFARO MD [facility] CATH AFIB [id number] 12/26/2018 10:27:00 14:21:00 DIS Emergency TAM DO, GIANNA K [facility] ER LOW BP 88/64 [id number] 2017 07:12:00 10:01:00 DIS Outpatient GRACIE ALFARO MD [facility] CATH A-FIB [id number] 09/17/2017 08:00:00 08:35:00 DIS Outpatient SOPHIE ELLINGTON [facility] SLEEP OBSERVED AP NEAS [id number] 08/26/2017 07:18:00 23:59:59 CLS Outpatient SOPHIE ELLINGTON [facility] CARD I48.0 AFIB [id number] 08/10/2017 11:55:00 018 16:40:00 DIS Inpatient ATA GRANADOS, ELIDIA Camarena [facility] ICU A-FIB RVR,BRONCHITIS,CH RONIC RENAL INSUFFICIENCY [id number] 09/30/2019 08:00:00 P EN Preadmit Corey WRIGHT MD [facility] CATH PERSISTENT AF [id number] 09/27/2019 15:17:[address] Outpatient PARRISH GRANADOS FACC, GEMA VENEGAS CCDS [facility] LABNPT
== END ==
LOC: CATH 06:50
PROVIDERS: ATTEND Internal Medicine Interventional Cardiology
DX: I48.19 Other persistent atrial fibrillation (principal); Z53.8 Procedure and treatment not carried out for other reasons

== ENCOUNTER → 2019-10-17 | Outpatient (CLI) | payer MEDICARE ==
[~2019-10-17] MED LIST changes: -HEParin (CATH LAB) 0 ML IV ONE; -HEParin 1000 UNIT/ML (10ML VIAL) FOR BOLUS ONE; -ISOPROTERENOL 0.2 MG/D5W 50 ML IV ONE; -LIDOCAINE 1% INJ 20 ML 20 ML VIAL ONE; -NS IV 1000 ML 0 ML ONE; -NS IV 1000 ML 1,000 ML IV SCH
== END ==
LOC: LABNPT 07:05
PROVIDERS: ATTEND Internal Medicine Interventional Cardiology
DX: Z01.818 Encounter for other preprocedural examination (principal); Z20.828 Contact with and (suspected) exposure to other viral communicable diseases; Z53.8 Procedure and treatment not carried out for other reasons

== ENCOUNTER 2021-09-08 11:24 | Inpatient (IN) | payer MEDICARE, OTHER ==
[~2021-09-08] VITALS: Ht 182 cm; Wt 130.3 kg
[~2021-09-08 11:24] MED LIST changes: -ACET-2715 PO; +ACET-3075 PO; +ASPI-1238 PO; -ASPI-983 PO; +CYCL10TA25 PO; -CYCL10TA9 PO; -LISI1TAB25 PO; +LISI1TAB46 PO; -OXYC-471 PO; +OXYC1TAB11 PO
[2021-09-08] MEDS ORDERED: NS IV 1000 ML 1,000 ML IV STA (11:41)
--- NOTE | 2021-09-08 11:46 | ED Cough/URI ---
General Stated Complaint: LOW BLOOD PRESSURE Source: patient Exam Limitations: no limitations (KURT CAMPBELL) History of Present Illness Date Seen by Provider: September 08, 2021 Time Seen by Provider: 11:43 Initial Comments Patient is a 65-year-old male with a history of A. fib, hypertension who presents the ED with URI symptoms. Started about a week and a half ago with body aches fatigue weakness. Started having nasal congestion sinus pressure that led into a wet productive cough. States he has sputum production with the cough. Reports shortness of breath with walking 3-4 steps. No history of CHF, COPD or asthma. Denies smoking. Denies of any chest pain however he has some lower abdominal discomfort for the past 2 weeks. Rates pain 2 out of 10. Described as more of a hunger pain crampy pain. Without any radiation. Frequent urination without any pain. Patient does have a watchman implant. Reports lightheadedness especially with walking. Denies visual changes, headache, syncope, neck pain, fever. Does also report sore throat and difficulty swallowing. He states his had similar symptoms earlier this week but she is much better. Up-to-date on his COVID vaccines but has not received the flu vaccine. Denies any vomiting, diarrhea, lower extremity swelling or redness or bruising, facial droop, headache, visual loss (KURT CAMPBELL) Allergies and Home Medications Allergies Coded Allergies: No Known Drug Allergies (Unverified , 08/10/17) Patient Home Medication List Home Medication List Reviewed: Yes (KURT CAMPBELL) Acetaminophen/Diphenhydramine (Tylenol Pm Ex-Strength Caplet) 1 Each Tablet, 1 EACH PO HS PRN for SLEEP, (Reported) Entered as Reported by: FABIOLA GE on 12/31/18 1104 Last Action: Reviewed Aspirin (Aspirin) 81 Mg Tab.chew, 81 MG PO DAILY, (Reported) Entered as Reported by: EWELINA MINA on 09/08/21 1532 Last Action: Reviewed Atorvastatin Calcium (Atorvastatin Calcium) 10 Mg Tablet, 10 MG PO DAILY, (Reported) Entered as Reported by: FABIOLA GE on 09/09/21 0959 Last Action: Reviewed Blood-Glucose Meter (WhoWantsMetouch Ultra2) 1 Each Kit, EACH , (DME) Prescribed by: DIAN CORTEZ on 09/09/21 1332 Diltiazem HCl (Diltiazem 24Hr ER) 240 Mg Cap.er.24h, 240 MG PO DAILY, (Reported) Entered as Reported by: EWELINA MINA on 09/08/21 1532 Last Action: Reviewed Insulin Glargine,Hum.rec.anlog (Lantus Solostar) 100 Unit/Ml (3 Ml) Insuln.pen, 20 UNIT SQ DAILY Prescribed by: ERIN GILLIS on 09/09/21 1112 Losartan/Hydrochlorothiazide (Losartan-Hctz 100-25 mg Tab) 1 Each Tablet, 1 EACH PO DAILY, (Reported) Entered as Reported by: KIA TO on 10/05/17 0800 Last Action: Reviewed Metformin HCl (Metformin HCl) 500 Mg Tablet, 500 MG PO DAILY Prescribed by: ERIN GILLIS on 09/09/21 111 Discontinued Medications Apixaban (Eliquis) 5 Mg Tablet, 5 MG PO BID, (Reported) Discontinued Reason: No Longer Taking Entered as Reported by: KEANU ALLEN on 05/09/192316 Last Action: Discontinued Atorvastatin Calcium (Lipitor) 10 Mg Tablet, 10 MG PO DAILY PRN Discontinued Reason: Duplicate Order Prescribed by: GRACIE ALFARO on 01/01/19 1141 Last Action: Discontinued Cyclobenzaprine HCl (Cyclobenzaprine HCl) 10 Mg Tablet, 10 MG PO Q8H PRN for SPASMS Discontinued Reason: No Longer Taking Prescribed by: TOM GOETZ on 05/10/19 0109 Last Action: Discontinued Diltiazem HCl (Cartia Xt) 240 Mg Cap.er.24h, 240 MG PO BID, (Reported) Discontinued Reason: Provider Change Entered as Reported by: KIA TO on 10/05/17 08 Last Action: Discontinued Flecainide Acetate (Flecainide Acetate) 100 Mg Tablet, 100 MG PO BID, (Reported) Discontinued Reason: No Longer Taking Entered as Reported by: FABIOLA GE on 12/31/18 1103 Last Action: Discontinued Hydroxyzine HCl (Hydroxyzine HCl) 25 Mg Tablet, 25 MG PO, (Reported) Discontinued Reason: No Longer Taking Entered as Reported by: KEANU ALLEN on 05/09/192316 Last Action: Discontinued Metoprolol Succinate (Metoprolol Succinate) 50 Mg Tab.er.24h, 50 MG PO DAILY, (Reported) Entered as Reported by: EWELINA MINA on 09/08/21 1532 Last Action: Reviewed Oxycodone HCl/Acetaminophen (Oxycodone-Acetaminophen 5-325) 1 Each Tablet, 1-2 EACH PO Q4H PRN for PAIN-MODERATE Discontinued Reason: No Longer Taking Prescribed by: TOM GOETZ on 05/10/19 0109 Last Action: Discontinued Review of Systems Review of Systems Constitutional: chills; No diaphoresis, No fever; malaise, weakness EENTM: throat pain; No blurred vision, No double vision, No vision loss, No throat swelling Respiratory: cough, short of breath Cardiovascular: No chest pain, No edema, No palpitations, No syncope Gastrointestinal: abdominal pain; No diarrhea, No nausea, No vomiting Genitourinary: No decreased output, No discharge Musculoskeletal: No back pain, No gout Skin: No change in color, No change in hair/nails Psychiatric/Neurological: Denies Anxiety, Denies Depressed Immunological/Allergic: see HPI (KURT CAMPBELL) All Other Systems Reviewed Negative Unless Noted: Yes (KURT CAMPBELL) Past Hcmnduz-Rdkblc-Aamfsm Hx Immunizations Up To Date Tetanus Booster (TDap): Unknown (KURT CAMPBELL) Seasonal Allergies Seasonal Allergies: No (KURT CAMPBELL) Past Medical History Surgeries: Yes (CARDIOVERSION 11/2017) Tonsillectomy Respiratory: Yes Sleep Apnea Currently Using CPAP: Yes Cardiac: Yes Atrial Fibrillation, High Cholesterol, Hypertension Neurological: No Genitourinary: Yes (URINARY STRICTURE) Gastrointestinal: Yes Gastroesophageal Reflux, Ulcer Musculoskeletal: No Endocrine: No HEENT: No Loss of Vision: Denies Hearing Impairment: Denies Cancer: No Psychosocial: No Integumentary: No Blood Disorders: No Adverse Reaction/Blood Tranf: No (KURT CAMPBELL) Family Medical History No Pertinent Family Hx (KURT CAMPBELL) Physical Exam Vital Signs - First Documented 09/08/21 11:35 Temp 36.0 Pulse 92 Resp 20 B/P (MAP) 94/70 (78) Pulse Ox 93 O2 Delivery Room Air (TAM,GIANNA K DO) Capillary Refill : (KURT CAMPBELL) Height: 6'0.00" Weight: 294lbs. 6.0oz. 133.902736ps; 39.73 BMI Method:Stated General Appearance: WD/WN, no apparent distress Eyes: Bilateral Eye Normal Inspection, Bilateral Eye PERRL, Bilateral Eye EOMI HEENT: PERRL/EOMI, normal ENT inspection, TMs normal, pharynx normal, other (Oropharynx with mild erythema without swelling or exudate) Neck: non-tender, full range of motion, supple Respiratory: chest non-tender, normal breath sounds, no respiratory distress, no accessory muscle use Cardiovascular: regular rate, rhythm, no edema, no gallop, no JVD Gastrointestinal: normal bowel sounds, non tender, soft, no organomegaly, no pulsatile mass Extremities: normal range of motion, non-tender, normal inspection, no pedal edema 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, no motor/sensory deficits, alert, normal mood/affect, oriented x 3 Skin: normal color, warm/dry (KURT CAMPBELL) Focused Exam Lactate Level 09/08/21 11:45: Lactic Acid Level 1.52 (GIANNA TURCIOS DO) Lactic Acid Level Laboratory Tests Test 09/08/21 11:45 Lactic Acid Level 1.52 MMOL/L (0.50-2.00) (GIANNA TURCIOS DO) Progress/Results/Core Measures Suspected Sepsis SIRS Temperature: Pulse: Respiratory Rate: Laboratory Tests 09/08/21 11:45: White Blood Count 11.5H Blood Pressure / Mean: 09/08/21 11:45: Lactic Acid Level 1.52 Laboratory Tests 09/08/21 11:45: Creatinine 3.55H, Platelet Count 188, Total Bilirubin 1.2H (KURT CAMPBELL) Results/Orders Lab Results Laboratory Tests Test 09/08/21 11:45 09/08/21 12:10 09/08/21 12:36 09/08/21 13:41 Range/Units White Blood Count 11.5 H 4.3-11.0 10^3/uL Red Blood Count 4.35 4.30-5.52 10^6/uL Hemoglobin 13.5 13.3-17.7 g/dL Hematocrit 38 L 40-54 % Mean Corpuscular Volume 87 80-99 fL Mean Corpuscular Hemoglobin 31 25-34 pg Mean Corpuscular Hemoglobin Concent 36 32-36 g/dL Red Cell Distribution Width 12.0 10.0-14.5 % Platelet Count 188 130-400 10^3/uL Mean Platelet Volume 11.3 9.0-12.2 fL Immature Granulocyte % (Auto) 1 % Neutrophils (%) (Auto) 80 H 42-75 % Lymphocytes (%) (Auto) 9 L 12-44 % Monocytes (%) (Auto) 10 0-12 % Eosinophils (%) (Auto) 0 0-10 % Basophils (%) (Auto) 0 0-10 % Neutrophils # (Auto) 9.2 H 1.8-7.8 10^3/uL Lymphocytes # (Auto) 1.0 1.0-4.0 10^3/uL Monocytes # (Auto) 1.1 H 0.0-1.0 10^3/uL Eosinophils # (Auto) 0.0 0.0-0.3 10^3/uL Basophils # (Auto) 0.0 0.0-0.1 10^3/uL Immature Granulocyte # (Auto) 0.1 0.0-0.1 10^3/uL Sodium Level 124 *L 135-145 MMOL/L Potassium Level 4.4 3.6-5.0 MMOL/L Chloride Level 86 L 98-107 MMOL/L Carbon Dioxide Level 21 21-32 MMOL/L Anion Gap 17 H 5-14 MMOL/L Blood Urea Nitrogen 52 H 7-18 MG/DL Creatinine 3.55 H 0.60-1.30 MG/DL Estimat Glomerular Filtration Rate 18 BUN/Creatinine Ratio 15 Glucose Level 730 *H 70-105 MG/DL Lactic Acid Level 1.52 0.50-2.00 MMOL/L Calcium Level 10.1 8.5-10.1 MG/DL Corrected Calcium 10.3 H 8.5-10.1 MG/DL Magnesium Level 1.8 1.6-2.4 MG/DL Total Bilirubin 1.2 H 0.1-1.0 MG/DL Aspartate Amino Transf (AST/SGOT) 17 5-34 U/L Alanine Aminotransferase (ALT/SGPT) 26 0-55 U/L Alkaline Phosphatase 101 40-136 U/L Troponin I < 0.028 <0.028 NG/ML B-Type Natriuretic Peptide 133.7 H <100.0 PG/ML Total Protein 6.9 6.4-8.2 GM/DL Albumin 3.7 3.2-4.5 GM/DL Beta-Hydroxybutyrate (Chem panel) 1.47 H 0.00-0.27 MMOL/L Procalcitonin 0.17 H <0.10 NG/ML Influenza Type A (RT-PCR) Not Detected Not Detecte Influenza Type B (RT-PCR) Not Detected Not Detecte SARS-CoV-2 RNA (RT-PCR) Not Detected Not Detecte Group A Streptococcus Screen NEGATIVE NEGATIVE Blood Gas Puncture Site LEFT RADIAL Blood Gas Patient Temperature 36.0 Arterial Blood pH 7.45 H 7.37-7.43 Arterial Blood Partial Pressure CO2 32 L 35-45 MMHG Arterial Blood Partial Pressure O2 53 L 79-93 MMHG Arterial Blood HCO3 22 L 23-27 MMOL/L Arterial Blood Total CO2 23.2 21.0-31.0 MMOL/L Arterial Blood Oxygen Saturation 93 L 94-100 % Arterial Blood Base Excess -1.4 -2.5-2.5 MMOL/L Salvador Test YES-POS Blood Gas Ventilator Setting NO Blood Gas Inspired Oxygen ROOM AIR Glucometer 535 *H 70-110 MG/DL (GIANNA TURCIOS DO) Micro Results Microbiology 09/08/21 Blood Culture - Preliminary, Resulted No growth 09/08/21 Throat Culture - Final, Complete No Beta Strep isolated 09/08/21 Blood Culture - Preliminary, Resulted No growth (GIANNA TURCIOS DO) Vital Signs/I&O 09/08/21 09/08/21 09/08/21 11:35 12:25 12:25 Temp 36.0 Pulse 92 80 85 85 Resp 20 B/P (MAP) 94/70 (78) 99/70 (80) 92/61 (71) 94/51 (65) Pulse Ox 93 92 O2 Delivery Room Air Room Air (GIANNA TURCIOS DO) Vital Signs/I&O Capillary Refill : (KURT CAMPBELL) ECG Comment Atrial fibrillation, 86 bpm, QRS duration 104 MS, QTc 416 MS. (KURT CAMPBELL) Departure Communication (Admissions) Time/Spoke to Admitting Phy: 14:19 Patient with hyperglycemia 730. No history of diabetes. Slight elevated anion gap and beta hydroxybutyrate. Normal lactic acid with a pH of 7.45. PO2 of 53 with PCO2 of 32. Patient with hyponatremia and hyper chloremia. Acute kidney injury noted. History of chronic kidney disease. No known history of diabetes. Was hypotensive and was given 2 L of fluid here with improvement of his blood pressure to 112/68. Chest x-ray was negative for pneumonia. COVID influenza negative. CT of the pelvis negative for acute abnormality. Urinalysis still pending. Did treat for for sepsis initially secondary to hypotension and elevated white blood count. No source of infection at this time. Was given Rocephin. Patient will be admitted to the ICU for insulin drip protocol. Patient was discussed with Dr. Alaniz who accepts patient. (KURT CAMPBELL) Impression Primary Impression: Hyperosmolar hyperglycemic state (HHS) Additional Impressions: EBONI (acute kidney injury) Hypotension Disposition: ADMITTED INPATIENT Condition: Stable Admissions Decision to Admit Reason: Admit from ER (General) Decision to Admit/Date: September 08, 2021 Time/Decision to Admit Time: 14:19 (KURT CAMPBELL) Departure-Patient Inst. Referrals: JM JACOBS MD (PCP/Family) Primary Care Physician Scripts Blood-Glucose Meter (Onetouch Ultra2) 1 Each Kit EACH for Hyperglycemia, #1 Prov: ERIN GILLIS MD 09/09/21 Insulin Glargine,Hum.rec.anlog (Lantus Solostar) 100 Unit/Ml (3 Ml) Insuln.pen 20 UNIT SQ DAILY for 30 Days, #6 EA Prov: ERIN GILLIS MD 09/09/21 Metformin HCl (Metformin HCl) 500 Mg Tablet 500 MG PO DAILY for 30 Days, #60 TAB TAKE ONE TABLET DAILY FOR ONE WEEK, THEN INCREASE TO TWO TABLETS DAILY. Prov: ERIN GILLIS MD 09/09/21 ATTENDING PHYSICIAN NOTE: I WAS PHYSICALLY PRESENT ER PHYSICIAN, BUT I WAS NOT INVOLVED IN ANY DECISION MAKING OR ANY CARE OF THIS PATIENT. (GIANNA TURCIOS DO) KURT CAMPBELL September 08, 2021 11:46 GIANNA TURCIOS DO September 11, 2021 06:09
[2021-09-08 12:00] LABS: BASOPHILS % (AUTO) 0 % (0-10); EOSINOPHILS % (AUTO) 0 % (0-10); HEMATOCRIT 38 % (40-54); HEMOGLOBIN 13.5 g/dL (13.3-17.7); LYMPHOCYTES % (AUTO) 9 % (12-44); MEAN CORPUSCULAR HEMOGLOBIN 31 pg (25-34); MEAN CORPUSCULAR HGB CONC 36 g/dL (32-36); MEAN CORPUSCULAR VOLUME 87 fL (80-99); MEAN PLATELET VOLUME 11.3 fL (9.0-12.2); MONOCYTES # (AUTO) 1.1 10^3/uL (0.0-1.0); MONOCYTES % (AUTO) 10 % (0-12); NEUTROPHILS # (AUTO) 9.2 10^3/uL (1.8-7.8); NEUTROPHILS % (AUTO) 80 % (42-75); PLATELET COUNT 188 10^3/uL (130-400); WHITE BLOOD COUNT 11.5 10^3/uL (4.3-11.0)
[2021-09-08] MEDS ORDERED: RT-ALBUTEROL SULF 2.5 MG/3 ML PRE-MIX VIAL INH ONE (12:00)
[2021-09-08 12:11] LABS: ALBUMIN 3.7 GM/DL (3.2-4.5)
[2021-09-08 12:12] LABS: CHLORIDE 86 MMOL/L (98-107); POTASSIUM 4.4 MMOL/L (3.6-5.0)
[2021-09-08 12:13] LABS: CALCIUM 10.1 MG/DL (8.5-10.1)
[2021-09-08 12:14] LABS: TOTAL PROTEIN 6.9 GM/DL (6.4-8.2)
[2021-09-08 12:15] LABS: CARBON DIOXIDE 21 MMOL/L (21-32)
[2021-09-08 12:16] LABS: BILIRUBIN,TOTAL 1.2 MG/DL (0.1-1.0)
[2021-09-08 12:17] LABS: ALKALINE PHOSPHATASE 101 U/L (40-136)
[2021-09-08 12:18] LABS: CREATININE SERUM 3.55 MG/DL (0.60-1.30); GFR ESTIMATED 18
[2021-09-08 12:19] LABS: BUN/CREATININE RATIO 15
[2021-09-08 12:20] LABS: ALANINE AMINOTRANSFERASE 26 U/L (0-55); MAGNESIUM 1.8 MG/DL (1.6-2.4)
[2021-09-08 12:25] VITALS: BP_SYST 92; BP_SYST 94; BP_SYST 99; BP_DIAS 51; BP_DIAS 61; BP_DIAS 70
[2021-09-08] MEDS ORDERED: cefTRIAXone 1 GM PRE-MIX 50 ML IV STA (12:27)
[2021-09-08 12:30] LABS: GLUCOSE 730 MG/DL (70-105); SODIUM 124 MMOL/L (135-145)
[2021-09-08 12:43] LABS: ABG BASE EXCESS -1.4 MMOL/L (-2.5-2.5); ABG OXYGEN SATURATION 93 % (94-100); ABG PCO2 32 MMHG (35-45); ABG PH 7.45 (7.37-7.43); ABG PO2 53 MMHG (79-93); ABG TCO2 23.2 MMOL/L (21.0-31.0)
[2021-09-08 12:45] LABS: ALLENS TEST YES-POS; INSPIRED O2 ROOM AIR; VENTILATOR NO
[2021-09-08] MEDS ORDERED: inSUlin (REGULAR) HUMAN 1 UNIT/0.01 ML (CHARGE PER UNIT) IV NR (13:00)
--- NOTE | 2021-09-08 14:03 | Diagnostic Imaging Report ---
EXAMINATION: CT abdomen and pelvis without contrast. TECHNIQUE: Multiple contiguous axial images were obtained through the abdomen and pelvis without the use of intravenous contrast. All CT scans use one or more of the following dose optimizing techniques: automated exposure control, MA and/or KvP adjustment based on patient size and exam type or iterative reconstruction. HISTORY: bilateral lower abd pain COMPARISON: 03/09/2020 FINDINGS: Lung bases: There are atelectasis or groundglass opacities within the lung bases. Solid organs: The liver is normal. The gallbladder is normal. There is no biliary ductal dilation. Pancreas is normal. Spleen is normal. Adrenal glands are normal. There is right renal atrophy. Left renal cortical scarring. No hydronephrosis or visualized renal calculus. Bowel: The stomach and small bowel are normal without obstruction. The colon and appendix are normal. Peritoneum: There is no intraperitoneal free fluid or free air. No suspicious lymphadenopathy. Vasculature: Calcification of the aorta without aneurysm. Musculoskeletal: Degenerative changes of the spine without suspicious osseous lesion or compression fracture. Pelvis: The prostate gland is normal. The urinary bladder is normal. IMPRESSION: 1. No acute abnormality in the abdomen or pelvis. Dictated by: Dictated on workstation # [id number]
--- NOTE | 2021-09-08 14:04 | Diagnostic Imaging Report ---
INDICATION: cough. TECHNIQUE: Single view chest 1:52 PM. CORRELATION STUDY: 01/01/2019 FINDINGS: Heart size enlarged. The vasculature overall appears less congested from prior. Previous prominent interstitial markings also appear diminished. No consolidating infiltrate. IMPRESSION: 1. Likely largely chronic change but lung parenchyma. No acute cardiopulmonary abnormality. Dictated by: Dictated on workstation # [id number]
[2021-09-08] MEDS: LACTATED RINGERS 1,000 ML IV SCH ×2 (14:14→19:54)
[2021-09-08 14:45] VITALS: BP 106/64
[2021-09-08] MEDS ORDERED: D5 1/2 NS 1000 ML IV SOLUTION 1,000 ML IV ONE (15:10)
[2021-09-08] MEDS ORDERED: 1/2 NS IV SOLUTION 1,000 ML IV ONE (15:10)
[2021-09-08] MEDS ORDERED: POTASSIUM CL 10MEQ/50ML IVPB 50 ML IV ONE (15:10)
--- NOTE | 2021-09-08 15:10 | Tele-ICU Progress Note ---
Subjective Date Seen by a Provider: September 08, 2021 Time Seen by a Provider: 14:23 Subjective/Events-last exam This virtual visit was conducted using real time audio/video. Thank you for asking us to see this patient for hyperglycemia (BG730) with Anion Gap 17 and Se osmolarity 307. Also URI symptoms. Recent events: PMH: Afib on Eliquis, HTN, HL, TONIE on CPAP, GERD. SH: smoking history: N FH: Non-contributory ROS:as in HPI. PE: Obese. VSS. O2 sat 96% on RA. HEENT: No obvious masses, adenopathy or JVD. Chest: clear to auscultation. CV: Irreg. 93-105. S1 S2 No murmur or added sounds. Abd: Non-tender. Bowel sounds Y. : Unremarkable. [place]uevas N. 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 No obvious focal findings. Extremities: No edema. Capillary refill < 3 seconds. Skin: unremarkable. Results: Elevated WCC 11.5, AG 17, BUN 52, glucose 730, Beta Hydroxy But 1.47. Decreased .Na 124 B.45/32/53/22 on RA. CXR: clear morgan. Available chart/ vitals / labs / images reviewed. Video assessment done using teleICU camera, rest of exam as per RN. A/P: Critical Care: critically ill patient. Cont. IVF, IV insulin. Replace K. Discussed with SANDRO Sapp.. Asked RN to reach out to eICU if any questions or conc erns later. Time spent with patient/coordination of care with other health professionals (mns):28 Sepsis Event Evaluation Height, Weight, BMI Height: 6'0.00" Weight: 294lbs. 6.0oz. 133.390980ou; 38.00 BMI Method:Stated Focused Exam Lactate Level 09/08/21 11:45: Lactic Acid Level 1.52 Lactic Acid Level Laboratory Tests Test 09/08/21 11:45 Lactic Acid Level 1.52 MMOL/L (0.50-2.00) Exam Exam Patient acknowledged, consented, and participated in this virtual visit which was conducted using real time audio/video Vital Signs Date Time Temp Pulse Resp B/P (MAP) Pulse Ox O2 Delivery O2 Flow Rate FiO2 09/08/21 12:25 80 99/70 (80) 85 92/61 (71) 85 94/51 (65) 09/08/21 12:25 92 Room Air 09/08/21 11:35 36.0 92 20 94/70 (78) 93 Room Air Height & Weight Height: 6'0.00" Weight: 294lbs. 6.0oz. 133.829186np; 38.00 BMI Method:Stated General Appearance: Obese Capillary Refill: Less Than 3 Seconds Peripheral Pulses: 1+ Dorsalis Pedis (R), 1+ Left Dors-Pedis (L) (See free text) Gastrointestinal: normal bowel sounds, non tender, soft, no organomegaly, no pulsatile mass Results Lab Laboratory Tests 09/08/21 11:45 Assessment/Plan Assessment/Plan See free text. Critical Care: Critically Ill Patient DEVANTE PIMENTEL MD September 08, 2021 15:10
[2021-09-08] MEDS ORDERED: ASPI-999 PO (15:32)
[2021-09-08] MEDS ORDERED: METO50TA7 PO (15:32)
[2021-09-08] MEDS ORDERED: DILT240C91 PO (15:32)
[2021-09-08] MEDS: NS IV 1000 ML 1,000 ML IV SCH ×2 (16:47→22:13)
[2021-09-09] MEDS: NS IV 1000 ML 1,000 ML IV SCH (06:23)
[2021-09-09] MEDS ORDERED: metFORMIN 500 MG (GLUCOPHAGE) TAB PO SCH (07:00)
[2021-09-09] MEDS ORDERED: KCL 20 MEQ TAB (K-DUR) PO SCH (07:15)
[2021-09-09] MEDS ORDERED: POTASSIUM CL 10MEQ/50ML IVPB 50 ML IV SCH (07:15)
[2021-09-09] MEDS ORDERED: MAGNESIUM 1 GM/100 ML IVPB 100 ML IV SCH (07:15)
[2021-09-09 07:38] LABS: BASOPHILS % (AUTO) 0 % (0-10); EOSINOPHILS # (AUTO) 0.1 10^3/uL (0.0-0.3); EOSINOPHILS % (AUTO) 1 % (0-10); HEMATOCRIT 32 % (40-54); HEMOGLOBIN 11.2 g/dL (13.3-17.7); LYMPHOCYTES # (AUTO) 1.2 10^3/uL (1.0-4.0); LYMPHOCYTES % (AUTO) 14 % (12-44); MEAN CORPUSCULAR HEMOGLOBIN 31 pg (25-34); MEAN CORPUSCULAR HGB CONC 35 g/dL (32-36); MEAN CORPUSCULAR VOLUME 89 fL (80-99); MEAN PLATELET VOLUME 10.5 fL (9.0-12.2); MONOCYTES # (AUTO) 0.9 10^3/uL (0.0-1.0); MONOCYTES % (AUTO) 10 % (0-12); NEUTROPHILS # (AUTO) 6.5 10^3/uL (1.8-7.8); NEUTROPHILS % (AUTO) 75 % (42-75); PLATELET COUNT 149 10^3/uL (130-400); WHITE BLOOD COUNT 8.7 10^3/uL (4.3-11.0)
[2021-09-09 07:52] LABS: ALBUMIN 2.6 GM/DL (3.2-4.5)
[2021-09-09 07:55] LABS: TOTAL PROTEIN 4.8 GM/DL (6.4-8.2)
[2021-09-09 07:57] LABS: BILIRUBIN,TOTAL 0.4 MG/DL (0.1-1.0)
[2021-09-09 07:59] LABS: CREATININE SERUM 1.64 MG/DL (0.60-1.30)
[2021-09-09 08:01] LABS: MAGNESIUM 1.2 MG/DL (1.6-2.4)
[2021-09-09 08:18] LABS: POTASSIUM 2.3 MMOL/L (3.6-5.0)
[2021-09-09] MEDS: MAGNESIUM 1 GM/100 ML IVPB 100 ML IV SCH ×4 (08:35→11:25)
[2021-09-09] MEDS: POTASSIUM CL 10MEQ/50ML IVPB 50 ML IV SCH ×5 (08:35→12:18)
[2021-09-09] MEDS ORDERED: APIXABAN 5 MG (ELIQUIS) TABLET PO SCH (09:00)
[2021-09-09] MEDS ORDERED: ATOR10TA66 PO (09:59)
[2021-09-09] MEDS ORDERED: inSUlin ASPART (NovoLOG) 1 UNIT/0.01 ML (CHARGE PER UNIT) SC SCH (11:00)
[2021-09-09] MEDS ORDERED: METF-397 PO (11:12)
[2021-09-09] MEDS ORDERED: INSU100I10 SQ (11:12)
[2021-09-09] MEDS ORDERED: BLOO-274 MC (13:32)
--- NOTE | 2021-09-09 22:19 | Discharge Summary ---
Discharge Summary Hospital Course Problems/Dx: (1) Hyperosmolar hyperglycemic state (HHS) Status: Acute (2) T2DM (type 2 diabetes mellitus) Status: Acute Qualifiers: Qualified Codes: E11.65 - Type 2 diabetes mellitus with hyperglycemia (3) Acute kidney injury superimposed on chronic kidney disease Status: Acute (4) Electrolyte abnormality Status: Acute Hospital Course Date of Admission: September 08, 2021 at 14:18 Admission Diagnosis : New onset T2DM with HHS Family Physician/Provider: Luis Cordon MD Date of Discharge: 09/09/21 Discharge Diagnosis: New onset T2DM with HHS Hospital Course: John Pickens is a 65 year old male who was admitted with new onset T2DM with HHS. His glucose was >700. He was started on an insulin drip and admitted to the ICU. His glucose normalized and he was started on subcutaneous insulin. He was also started on Metformin. He had an EBONI on CKD3a which returned to baseline with IV fluid resuscitation. He also had electrolyte abnormalities which were replaced and corrected as needed. He received diabetes education prior to discharge. He should follow up with his PCP in a week or two. He was instructed to keep a log of his blood sugars to take to his follow up appointment. He was discharged home in stable condition. Labs and Pending Lab Test: Laboratory Tests 09/08/21 22:56: Glucometer 92 09/08/21 23:51: Glucometer 90 09/09/21 01:08: Glucometer 97 09/09/21 03:14: Glucometer 77 09/09/21 04:44: Glucometer 79 09/09/21 06:25: Glucometer 103 09/09/21 07:20: White Blood Count 8.7, Red Blood Count 3.63L, Hemoglobin 11.2L, Hematocrit 32L, Mean Corpuscular Volume 89, Mean Corpuscular Hemoglobin 31, Mean Corpuscular Hemoglobin Concent 35, Red Cell Distribution Width 12.1, Platelet Count 149, Mean Platelet Volume 10.5, Immature Granulocyte % (Auto) 1, Neutrophils (%) (Auto) 75, Lymphocytes (%) (Auto) 14, Monocytes (%) (Auto) 10, Eosinophils (%) (Auto) 1, Basophils (%) (Auto) 0, Neutrophils # (Auto) 6.5, Lymphocytes # (Auto) 1.2, Monocytes # (Auto) 0.9, Eosinophils # (Auto) 0.1, Basophils # (Auto) 0.0, Immature Granulocyte # (Auto) 0.0, Sodium Level 140, Potassium Level 2.3#*L, Chloride Level 109H, Carbon Dioxide Level 20L, Anion Gap 11, Blood Urea Nitrogen 33H, Creatinine 1.64H, Estimat Glomerular Filtration Rate 46, BUN/Creatinine Ratio 20, Glucose Level 74, Calcium Level 7.0L, Corrected Calcium 8.1L, Magnesium Level 1.2L, Total Bilirubin 0.4, Aspartate Amino Transf (AST/SGOT) 18, Alanine Aminotransferase (ALT/SGPT) 19, Alkaline Phosphatase 75, Total Protein 4.8L, Albumin 2.6L, Beta-Hydroxybutyrate (Chem panel) 0.45H 09/09/21 10:58: Glucometer 362H Microbiology 09/08/21 MRSA Screen - Final, Complete MRSA not isolated 09/08/21 Blood Culture - Preliminary, Resulted No growth Home [employer] Active Onetouch Ultra2 (Blood-Glucose Meter) 1 Each Kit Each Lantus Solostar (Insulin Glargine,Hum.rec.anlog) 100 Unit/Ml (3 Ml) Insuln.pen 20 Unit SQ DAILY 30 Days Metformin HCl 500 Mg Tablet 500 Mg PO DAILY 30 Days TAKE ONE TABLET DAILY FOR ONE WEEK, THEN INCREASE TO TWO TABLETS DAILY. Reported Atorvastatin Calcium 10 Mg Tablet 10 Mg PO DAILY Diltiazem 24Hr ER (Diltiazem HCl) 240 Mg Cap.er.24h 240 Mg PO DAILY Aspirin 81 Mg Tab.chew 81 Mg PO DAILY Tylenol Pm Ex-Strength Caplet (Acetaminophen/Diphenhydramine) 1 Each Tablet 1 Each PO HS PRN Losartan-Hctz 100-25 mg Tab (Losartan/Hydrochlorothiazide) 1 Each Tablet 1 Each PO DAILY Assessment/Pt Instructions See instructions Discharge Planning: >30 minutes discharge planning Discharge Instructions Discharge Diet: ADA Diet Activity as Tolerated: Yes Consultations TeleICU Discharge Physical Examination Vital Signs Vital Signs Date Time Temp Pulse Resp B/P (MAP) Pulse Ox O2 Delivery O2 Flow Rate FiO2 09/09/21 14:00 104 103/89 93 Nasal Cannula 2.00 09/09/21 13:00 29 09/09/21 11:30 36.6 General Appearance: No Apparent Distress, Obese Respiratory: Lungs Clear, No Respiratory Distress Cardiovascular: Regular Rate, Rhythm, No Murmur Gastrointestinal: Normal Bowel Sounds, Soft Extremity: Normal Inspection, No Pedal Edema Skin: Normal Color, Warm/Dry Neurologic/Psychiatric: Alert, Normal Mood/Affect Allergies: Coded Allergies: No Known Drug Allergies (Unverified , 08/10/17) Discharge Summary Date of Admission September 08, 2021 at 14:18 Date of Discharge September 09, 2021 at 14:23 Discharge Date: September 09, 2021 Discharge Time: 14:23 Admission Diagnosis T2DM with HHS Consults/Procedures Consulations TeleICU Discharge Diagnosis (1) Hyperosmolar hyperglycemic state (HHS) Status: Acute (2) T2DM (type 2 diabetes mellitus) Status: Acute Qualifiers: Qualified Codes: E11.65 - Type 2 diabetes mellitus with hyperglycemia (3) Electrolyte abnormality Status: Acute (4) Acute kidney injury superimposed on chronic kidney disease Status: Acute ERIN GILLIS MD September 09, 2021 22:19
[2021-09-10] MEDS ORDERED: metFORMIN 500 MG (GLUCOPHAGE) TAB PO SCH (07:00)
== END 2021-09-09 14:23 | disposition home or self-care (01) | DRG 638 ==
LOC: EDUNIT# 11:24 → ER 11:26 → ICU 14:18
PROVIDERS: ADMIT Family Medicine; ATTEND Internal Medicine
DX: E11.00 Type 2 diabetes mellitus with hyperosmolarity without nonketotic hyperglycemic-hyperosmolar coma (NKHHC) (principal); N17.9 Acute kidney failure, unspecified; I95.9 Hypotension, unspecified; Z20.822 Contact with and (suspected) exposure to COVID-19; I48.91 Unspecified atrial fibrillation; N18.31 Chronic kidney disease, stage 3a; E78.00 Pure hypercholesterolemia, unspecified; K21.9 Gastro-esophageal reflux disease without esophagitis; Z79.899 Other long term (current) drug therapy; Z79.01 Long term (current) use of anticoagulants; G47.33 Obstructive sleep apnea (adult) (pediatric); E66.9 Obesity, unspecified; Z68.39 Body mass index [BMI] 39.0-39.9, adult
CPT/HCPCS: 36415; 71045; 74176; 80053; 82010; 82805; 82947; 83605; 83735; 83880; 84145; 84484; 85025; 87040; 87081; 87430; 87636; 93005; 94640; 96361; 96374; 96375; 99291